=== PATIENT | female | born 1955 | race Two or more races ===

== ENCOUNTER 2021-10-28 01:04 | Inpatient (IN) | payer MEDICAID, OTHER ==
[~2021-10-28] VITALS: Ht 160 cm; Wt 85.0 kg
[2021-10-28] MEDS ORDERED: ACETAMINOPHEN ES 500 MG TABLET PO ONE (02:00)
[2021-10-28] MEDS ORDERED: ACETAMINOPHEN ES 500 MG TABLET ONE (02:13)
[2021-10-28 02:46] LABS: BASOPHILS # (AUTO) 0.1 K/uL (0.0-0.2); BASOPHILS % (AUTO) 0.8 % (0.0-2.0); EOSINOPHILS % (AUTO) 6.6 % (0.0-6.0); HEMATOCRIT 25 % (33-45); HEMOGLOBIN 8.3 g/dL (11.5-14.8); LYMPHOCYTES # (AUTO) 1.4 K/uL (0.8-4.8); MEAN CORPUSCULAR HGB CONC 33 g/dl (31.0-36.0); MEAN CORPUSCULAR VOLUME 98 fL (82-100); MONOCYTES # (AUTO) 0.7 K/uL (0.1-1.30); MONOCYTES % (AUTO) 9.1 % (2.0-12.0); NEUTROPHILS % (AUTO) 65.5 % (43.0-81.0); PLATELET COUNT (AUTO) 63 K/uL (150-450); RED BLOOD CELL COUNT(AUTO) 2.54 MIL/uL (4.0-5.2); WHITE BLOOD COUNT (AUTO) 7.7 K/uL (4.3-11.0)
[2021-10-28 03:04] LABS: ALANINE AMINOTRANSFERASE 27 U/L (12-78); ALBUMIN 2.5 g/dL (3.4-5.0); ALCOHOL, BLOOD < 3 mg/dL (0-0); ALKALINE PHOSPHATASE 217 U/L (46-116); ASPARTATE AMINOTRANSFERASE 53 U/L (15-37); BILIRUBIN,DIRECT 0.4 mg/dL (0.0-0.2); CALCIUM, SERUM 9.2 mg/dL (8.5-10.1); CARBON DIOXIDE 23 mmol/L (21-32); CHLORIDE 97 mmol/L (98-107); CREATININE 5.2 mg/dL (0.6-1.3); GLUCOSE 131 mg/dL (74-106); SODIUM SERUM 135 mmol/L (136-145); TOTAL PROTEIN, SERUM 7.3 g/dL (6.4-8.2); UREA NITROGEN, BLOOD 58 mg/dL (7-18)
[2021-10-28] MEDS ORDERED: CEFEPIME 1 GM in IV D5W 50 ML IV ONE (03:30)
[2021-10-28] MEDS ORDERED: VANCOMYCIN 1 GM in IV D5W 250 ML IV ONE (03:30)
[2021-10-28] MEDS ORDERED: VANCOMYCIN 1 GM VIAL ONE (03:44)
[2021-10-28 04:07] LABS: BILIRUBIN,URINE SMALL (NEGATIVE); COLOR,URINE YELLOW (YELLOW); LEUKOCYTE ESTERASE ,URINE TRACE (NEGATIVE); NITRITE, URINE NEGATIVE (NEGATIVE); PH,URINE 5.5 (5.0-8.0); PROTEIN,URINE >=300 mg/dl (NEGATIVE); UGLUCOSE 100 MG/DL mg/dL (NEGATIVE); UROBILINOGEN,URINE 0.2 EU/dL (0.2)
[2021-10-28] MEDS ORDERED: CEFEPIME 1 GM VIAL ONE (04:07)
[2021-10-28 04:19] LABS: ALBUMIN 2.4 g/dL (3.4-5.0); BILIRUBIN,DIRECT 0.4 mg/dL (0.0-0.2); BILIRUBIN,TOTAL 0.9 mg/dL (0.2-1.0); TOTAL PROTEIN, SERUM 7.1 g/dL (6.4-8.2)
[2021-10-28 04:23] LABS: RBC,URINE 21-50 /HPF (0-2)
[2021-10-28 04:24] LABS: BACTERIA,URINE Many /HPF (None Seen); SQUAMOUS EPITHELIAL CELL,UR Few /HPF (None Seen)
[2021-10-28] MEDS ORDERED: MAG HYDROX/AL HYDROX/SIMETH 30 ML UDC PO PRN (05:00)
[2021-10-28] MEDS ORDERED: ZOLPIDEM TARTRATE 5 MG TABLET PO PRN (05:00)
[2021-10-28] MEDS ORDERED: ACETAMINOPHEN 325 MG TABLET PO PRN (05:00)
[2021-10-28] MEDS ORDERED: Z GUARD REMEDY 4 OZ OINT TP PRN (05:00)
[2021-10-28] MEDS ORDERED: MAGNESIUM HYDROXIDE 30 ML UDC PO PRN (05:00)
[2021-10-28] MEDS: CEFTRIAXONE 1 G in IV D5W 50 ML IV SCH (08:12)
[2021-10-28] MEDS ORDERED: ONDANSETRON HCL/PF 4 MG/2 ML VIAL ONE (08:55)
[2021-10-28] MEDS: ONDANSETRON HCL/PF 4 MG/2 ML VIAL IVP PRN ×2 (09:02→16:41)
[2021-10-28] MEDS ORDERED: RIFA550T PO (09:57)
[2021-10-28] MEDS ORDERED: ASPI-1169 PO (09:57)
[2021-10-28] MEDS ORDERED: METO25TA20 PO (09:57)
[2021-10-28] MEDS ORDERED: BETH50TA2 PO (09:57)
[2021-10-28] MEDS ORDERED: LACT10SO3 PO (09:57)
[2021-10-28] MEDS ORDERED: MIDO10TA PO (09:57)
[2021-10-28] MEDS ORDERED: METF-442 PO (09:57)
[2021-10-28] MEDS ORDERED: ATOR10TA PO (09:57)
[2021-10-28] MEDS ORDERED: TRAM50TA2 PO (09:57)
[2021-10-28] MEDS ORDERED: PANT40TA49 PO (09:57)
[2021-10-28] MEDS ORDERED: PROP20TA19 PO (09:57)
[2021-10-28] MEDS ORDERED: LEVO100T9 PO (09:57)
[2021-10-28] MEDS ORDERED: SUCR1ORA15 PO (09:57)
[2021-10-28] MEDS ORDERED: INSU100V36 SQ (10:01)
[2021-10-28] MEDS ORDERED: INSU100V7 SQ (10:01)
[2021-10-28] MEDS ORDERED: LACTULOSE 10 G/15 ML UDC (PYXIS) PO PRN ×2 (10:30)
[2021-10-28] MEDS ORDERED: DEXTROSE 50%-WATER 50 ML DISP.SYRIN IV PRN (11:00)
[2021-10-28] MEDS: TRAMADOL HCL 50 MG TABLET PO PRN (11:29)
[2021-10-28 12:00] VITALS: BP 156/69
[2021-10-28] MEDS: BLOOD SUGAR DIAGNOSTIC 1 EACH STRIP VI SCH ×3 (12:13→21:27)
[2021-10-28] MEDS: INSULIN REGULAR, HUMAN 100 UNIT/ML 3 ML VIAL SQ PRN ×2 (12:19→21:26)
[2021-10-28] MEDS: BETHANECHOL CHLORIDE (25 MG) 25 MG TABLET PO SCH ×2 (13:39→17:35)
[2021-10-28] MEDS: SUCRALFATE 1 G/10 ML UDC PO SCH ×3 (13:39→20:46)
[2021-10-28 16:00] VITALS: BP 121/76
[2021-10-28] MEDS ORDERED: Medication Not On Formulary EA (Metformin Hcl 1,000 MG) PO SCH (17:00)
[2021-10-28] MEDS ORDERED: PROPRANOLOL HCL 20 MG PO SCH (17:00)
[2021-10-28] MEDS: RIFAXIMIN 550 MG TABLET PO SCH (17:34)
[2021-10-28] MEDS: METOPROLOL TARTRATE 25 MG TABLET PO SCH (17:35)
[2021-10-28 20:00] VITALS: BP 172/75
[2021-10-28] MEDS: hydrALAZINE HCL 10 MG TABLET PO PRN (20:46)
[2021-10-28] MEDS: INSULIN GLARGINE, 100 UNIT/ML CARTRIDGE SQ SCH (21:25)
[2021-10-28] MEDS: MIDODRINE HCL (5MG) 5 MG TABLET PO SCH (22:00)
[2021-10-29] VITALS: BP 148/74
[2021-10-29] MEDS: TRAMADOL HCL 50 MG TABLET PO PRN (02:23)
[2021-10-29] MEDS: ONDANSETRON HCL/PF 4 MG/2 ML VIAL IVP PRN ×2 (02:55→16:21)
[2021-10-29 04:00] VITALS: BP 139/66
[2021-10-29 06:06] LABS: BASOPHILS # (AUTO) 0.1 K/uL (0.0-0.2); BASOPHILS % (AUTO) 0.9 % (0.0-2.0); EOSINOPHILS % (AUTO) 5.8 % (0.0-6.0); HEMATOCRIT 26 % (33-45); HEMOGLOBIN 8.8 g/dL (11.5-14.8); LYMPHOCYTES # (AUTO) 0.9 K/uL (0.8-4.8); LYMPHOCYTES % (AUTO) 13.2 % (20.0-44.0); MEAN CORPUSCULAR HGB CONC 33 g/dl (31.0-36.0); MEAN CORPUSCULAR VOLUME 96 fL (82-100); MONOCYTES # (AUTO) 0.7 K/uL (0.1-1.30); NEUTROPHILS # (AUTO) 4.7 K/uL (1.8-8.9); NEUTROPHILS % (AUTO) 70.1 % (43.0-81.0); PLATELET COUNT (AUTO) 67 K/uL (150-450); RED BLOOD CELL COUNT(AUTO) 2.74 MIL/uL (4.0-5.2); WHITE BLOOD COUNT (AUTO) 6.7 K/uL (4.3-11.0)
[2021-10-29 06:20] LABS: CALCIUM, SERUM 8.6 mg/dL (8.5-10.1); CREATININE 5.2 mg/dL (0.6-1.3); MAGNESIUM 2.5 mg/dL (1.8-2.4); PHOSPHORUS 5.2 mg/dL (2.5-4.9); POTASSIUM 5.3 mmol/L (3.5-5.1)
[2021-10-29] MEDS: CEFTRIAXONE 1 G in IV D5W 50 ML IV SCH (07:53)
[2021-10-29] MEDS: PANTOPRAZOLE 40 MG TABLET.DR PO SCH (07:53)
[2021-10-29] MEDS: BLOOD SUGAR DIAGNOSTIC 1 EACH STRIP VI SCH ×4 (07:53→21:37)
[2021-10-29] MEDS: LEVOTHYROXINE SODIUM 100 MCG TABLET PO SCH (07:53)
[2021-10-29 08:00] VITALS: BP 155/71
[2021-10-29] MEDS ORDERED: IV NS 0.9% 250 ML IV PRN (08:30)
[2021-10-29] MEDS: RIFAXIMIN 550 MG TABLET PO SCH ×2 (08:41→16:55)
[2021-10-29] MEDS: SUCRALFATE 1 G/10 ML UDC PO SCH ×4 (08:41→21:24)
[2021-10-29] MEDS: ATORVASTATIN 10 MG TABLET PO SCH (08:41)
[2021-10-29] MEDS: BETHANECHOL CHLORIDE (25 MG) 25 MG TABLET PO SCH ×3 (08:42→16:56)
[2021-10-29] MEDS ORDERED: ASPIRIN 81 MG TAB.CHEW PO SCH (09:00)
[2021-10-29 12:00] VITALS: BP 160/80
[2021-10-29] MEDS: INSULIN REGULAR, HUMAN 100 UNIT/ML 3 ML VIAL SQ PRN ×2 (12:03→16:53)
[2021-10-29 16:00] VITALS: BP 158/87
[2021-10-29] MEDS: METOPROLOL TARTRATE 25 MG TABLET PO SCH (17:00)
[2021-10-29 20:00] VITALS: BP 158/71
[2021-10-29] MEDS: MIDODRINE HCL (5MG) 5 MG TABLET PO SCH (21:24)
[2021-10-29] MEDS: *INSULIN REGULAR(HUMULIN R)HUM 100 UNIT/ML VIAL SQ PRN (21:38)
[2021-10-29] MEDS: INSULIN GLARGINE, 100 UNIT/ML CARTRIDGE SQ SCH (21:41)
[2021-10-30] VITALS: BP 177/65
[2021-10-30] MEDS: hydrALAZINE HCL 10 MG TABLET PO PRN ×2 (00:12→17:57)
[2021-10-30 04:00] VITALS: BP 138/72
[2021-10-30 07:06] LABS: BASOPHILS % (AUTO) 0.6 % (0.0-2.0); EOSINOPHILS % (AUTO) 8.1 % (0.0-6.0); HEMATOCRIT 25 % (33-45); HEMOGLOBIN 8.2 g/dL (11.5-14.8); LYMPHOCYTES # (AUTO) 0.9 K/uL (0.8-4.8); LYMPHOCYTES % (AUTO) 14.1 % (20.0-44.0); MEAN CORPUSCULAR HGB CONC 34 g/dl (31.0-36.0); MEAN CORPUSCULAR VOLUME 95 fL (82-100); MONOCYTES # (AUTO) 0.6 K/uL (0.1-1.30); MONOCYTES % (AUTO) 9.1 % (2.0-12.0); NEUTROPHILS # (AUTO) 4.3 K/uL (1.8-8.9); NEUTROPHILS % (AUTO) 68.1 % (43.0-81.0); PLATELET COUNT (AUTO) 84 K/uL (150-450); RED BLOOD CELL COUNT(AUTO) 2.57 MIL/uL (4.0-5.2); WHITE BLOOD COUNT (AUTO) 6.3 K/uL (4.3-11.0)
[2021-10-30 07:26] LABS: CALCIUM, SERUM 8.2 mg/dL (8.5-10.1); CREATININE 3.8 mg/dL (0.6-1.3); MAGNESIUM 2.1 mg/dL (1.8-2.4); PHOSPHORUS 4.4 mg/dL (2.5-4.9); POTASSIUM 4.4 mmol/L (3.5-5.1)
[2021-10-30 08:00] VITALS: BP 167/80
[2021-10-30] MEDS: CEFTRIAXONE 1 G in IV D5W 50 ML IV SCH (08:04)
[2021-10-30] MEDS: PANTOPRAZOLE 40 MG TABLET.DR PO SCH (08:05)
[2021-10-30] MEDS: LEVOTHYROXINE SODIUM 100 MCG TABLET PO SCH (08:05)
[2021-10-30] MEDS: METOPROLOL TARTRATE 25 MG TABLET PO SCH ×2 (08:05→16:32)
[2021-10-30] MEDS: ATORVASTATIN 10 MG TABLET PO SCH (08:05)
[2021-10-30] MEDS: RIFAXIMIN 550 MG TABLET PO SCH ×2 (08:05→16:31)
[2021-10-30] MEDS: SERTRALINE HCL 50 MG TABLET PO SCH (08:05)
[2021-10-30] MEDS: SUCRALFATE 1 G/10 ML UDC PO SCH ×4 (08:05→21:17)
[2021-10-30] MEDS: BETHANECHOL CHLORIDE (25 MG) 25 MG TABLET PO SCH ×3 (08:05→16:31)
[2021-10-30] MEDS: BLOOD SUGAR DIAGNOSTIC 1 EACH STRIP VI SCH ×4 (08:21→21:26)
[2021-10-30 09:41] LABS: BAND % (MANUAL) 1 % (0.0-5.0); EOSINOPHILS % (MANUAL) 3 % (0-4); LYMPHOCYTES % (MANUAL) 20 % (16-48); MONOCYTES % (MANUAL) 3 % (0-11.0); NEUTROPHILS % (MANUAL) 73 (42-76)
[2021-10-30] MEDS: FLUCONAZOLE IN NS 100 MG in PREMIX 1 EA IV SCH ×2 (11:18)
[2021-10-30] MEDS: INSULIN REGULAR, HUMAN 100 UNIT/ML 3 ML VIAL SQ PRN ×2 (11:44→16:48)
[2021-10-30 12:00] VITALS: BP 146/78
[2021-10-30 16:00] VITALS: BP 173/83
[2021-10-30] MEDS: NEPRO VAN 237 ML CAN PO SCH (16:49)
[2021-10-30 20:00] VITALS: BP 160/71
[2021-10-30] MEDS: *INSULIN REGULAR(HUMULIN R)HUM 100 UNIT/ML VIAL SQ PRN (21:33)
[2021-10-30] MEDS: INSULIN GLARGINE, 100 UNIT/ML CARTRIDGE SQ SCH (21:36)
[2021-10-30] MEDS: MIDODRINE HCL (5MG) 5 MG TABLET PO SCH (22:00)
[2021-10-31] VITALS: BP 169/82
[2021-10-31] MEDS: hydrALAZINE HCL 10 MG TABLET PO PRN (01:46)
[2021-10-31 04:00] VITALS: BP 128/77
[2021-10-31 07:22] LABS: BASOPHILS # (AUTO) 0.1 K/uL (0.0-0.2); BASOPHILS % (AUTO) 1.1 % (0.0-2.0); EOSINOPHILS % (AUTO) 8.3 % (0.0-6.0); HEMATOCRIT 24 % (33-45); HEMOGLOBIN 8.3 g/dL (11.5-14.8); LYMPHOCYTES # (AUTO) 1.2 K/uL (0.8-4.8); MEAN CORPUSCULAR HGB CONC 34 g/dl (31.0-36.0); MEAN CORPUSCULAR VOLUME 95 fL (82-100); MONOCYTES # (AUTO) 0.7 K/uL (0.1-1.30); MONOCYTES % (AUTO) 10.5 % (2.0-12.0); NEUTROPHILS # (AUTO) 3.9 K/uL (1.8-8.9); NEUTROPHILS % (AUTO) 61.1 % (43.0-81.0); PLATELET COUNT (AUTO) 97 K/uL (150-450); RED BLOOD CELL COUNT(AUTO) 2.55 MIL/uL (4.0-5.2); WHITE BLOOD COUNT (AUTO) 6.5 K/uL (4.3-11.0)
[2021-10-31 07:26] LABS: CALCIUM, SERUM 8.4 mg/dL (8.5-10.1); CREATININE 4.2 mg/dL (0.6-1.3); MAGNESIUM 2.1 mg/dL (1.8-2.4); PHOSPHORUS 5.2 mg/dL (2.5-4.9); POTASSIUM 4.3 mmol/L (3.5-5.1)
[2021-10-31 08:00] VITALS: BP 168/72
[2021-10-31] MEDS: RIFAXIMIN 550 MG TABLET PO SCH (08:15)
[2021-10-31] MEDS: PANTOPRAZOLE 40 MG TABLET.DR PO SCH (08:15)
[2021-10-31] MEDS: SUCRALFATE 1 G/10 ML UDC PO SCH ×2 (08:15→12:28)
[2021-10-31] MEDS: BETHANECHOL CHLORIDE (25 MG) 25 MG TABLET PO SCH ×2 (08:15→12:28)
[2021-10-31] MEDS: METOPROLOL TARTRATE 25 MG TABLET PO SCH (08:15)
[2021-10-31] MEDS: ATORVASTATIN 10 MG TABLET PO SCH (08:15)
[2021-10-31] MEDS: SERTRALINE HCL 50 MG TABLET PO SCH (08:15)
[2021-10-31] MEDS: LEVOTHYROXINE SODIUM 100 MCG TABLET PO SCH (08:15)
[2021-10-31] MEDS: CEFTRIAXONE 1 G in IV D5W 50 ML IV SCH (08:19)
[2021-10-31] MEDS: BLOOD SUGAR DIAGNOSTIC 1 EACH STRIP VI SCH ×2 (08:38→12:27)
[2021-10-31] MEDS: NEPRO VAN 237 ML CAN PO SCH (08:38)
[2021-10-31] MEDS ORDERED: FLUC100T8 PO (10:37)
[2021-10-31] MEDS: FLUCONAZOLE IN NS 100 MG in PREMIX 1 EA IV SCH ×2 (11:41)
[2021-10-31 12:00] VITALS: BP 130/62
== END 2021-10-31 13:35 | disposition home or self-care (01) | DRG 720 ==
LOC: ER 01:06 → TRANSITION 07:09 → TELE1 08:28
PROVIDERS: ADMIT Internal Medicine; ATTEND Nurse Practitioner Acute Care
PROC: 5A1D70Z Performance of Urinary Filtration, Intermittent, Less than 6 Hours Per Day (ICD-10-PCS; principal; 2021-10-29)
PROC: 05HB33Z Insertion of Infusion Device into Right Basilic Vein, Percutaneous Approach (ICD-10-PCS; 2021-10-29)
DX: A41.9 Sepsis, unspecified organism (principal); G93.41 Metabolic encephalopathy; E87.2 Acidosis; E43 Unspecified severe protein-calorie malnutrition; D69.6 Thrombocytopenia, unspecified; I12.0 Hypertensive chronic kidney disease with stage 5 chronic kidney disease or end stage renal disease; E87.1 Hypo-osmolality and hyponatremia; J90 Pleural effusion, not elsewhere classified; E88.09 Other disorders of plasma-protein metabolism, not elsewhere classified; G90.8 Other disorders of autonomic nervous system; N18.6 End stage renal disease; E11.22 Type 2 diabetes mellitus with diabetic chronic kidney disease; K74.60 Unspecified cirrhosis of liver; Z99.2 Dependence on renal dialysis; Z20.822 Contact with and (suspected) exposure to COVID-19; E78.5 Hyperlipidemia, unspecified; Z88.0 Allergy status to penicillin; Z79.4 Long term (current) use of insulin; Z79.82 Long term (current) use of aspirin; Z79.84 Long term (current) use of oral hypoglycemic drugs; Z79.899 Other long term (current) drug therapy; Z86.61 Personal history of infections of the central nervous system; Z98.890 Other specified postprocedural states; Y92.9 Unspecified place or not applicable; G89.4 Chronic pain syndrome; K21.9 Gastro-esophageal reflux disease without esophagitis; E03.9 Hypothyroidism, unspecified; F32.A Depression, unspecified; M47.812 Spondylosis without myelopathy or radiculopathy, cervical region; W18.30XA Fall on same level, unspecified, initial encounter; B37.49 Other urogenital candidiasis
CPT/HCPCS: 36415; 70450-TC; 71045-TC; 72125-TC; 72170-TC; 74018; 80048-TC; 80074; 80076-TC; 81001; 82962-TC; 83605-TC; 83735-TC; 83880; 84100-TC; 84484-TC; 85025-TC; 85730-TC; 86706; 87040-TC; 87081-TC; 87086-TC; 87340; 93971-TC; 97112-TC; 97530-TC; A4216; A6403; C9803; G0378; G0480; J0692; J0696; J1450; J1815; J2405; J3370; J7030; J7060

== ENCOUNTER 2021-11-18 15:52 | Emergency (ER) | payer MEDICAID, MEDICARE, OTHER ==
[~2021-11-18] VITALS: Ht 165.1 cm; Wt 81.2 kg
[~2021-11-18 15:52] MED LIST: ASPI-1169 PO; ATOR10TA PO; BETH50TA2 PO; FLUC100T8 PO; INSU100V36 SQ; INSU100V7 SQ; LACT10SO3 PO; LEVO100T9 PO; METF-442 PO; METO25TA20 PO; MIDO10TA PO; PANT40TA49 PO; PROP20TA19 PO; RIFA550T PO; SUCR1ORA15 PO; TRAM50TA2 PO
--- NOTE | 2021-11-18 16:04 | NUR ---
TO ER BED 2. BIB RA 889 FROM HOME,GENERALIZED WEAKNESS/NAUSEA/VOMITING SINCE LAST NIGHT. PT IS A&OX2. HAS DIALYSIS PORT ON R CHEST. ATTCHED TO MONITOR, NO RESPIRATORY DISTRESS NOTED. IV ESTBALIHSED L AC 20G, LABS DRAWN AND SENT.
[2021-11-18 16:33] LABS: BASOPHILS # (AUTO) 0.1 K/uL (0.0-0.2); BASOPHILS % (AUTO) 1.2 % (0.0-2.0); EOSINOPHILS % (AUTO) 7.5 % (0.0-6.0); HEMATOCRIT 26 % (33-45); HEMOGLOBIN 8.9 g/dL (11.5-14.8); LYMPHOCYTES % (AUTO) 17.7 % (20.0-44.0); MEAN CORPUSCULAR HGB CONC 34 g/dl (31.0-36.0); MEAN CORPUSCULAR VOLUME 97 fL (82-100); MONOCYTES # (AUTO) 0.5 K/uL (0.1-1.30); MONOCYTES % (AUTO) 8.6 % (2.0-12.0); NEUTROPHILS # (AUTO) 3.5 K/uL (1.8-8.9); PLATELET COUNT (AUTO) 112 K/uL (150-450); RED BLOOD CELL COUNT(AUTO) 2.71 MIL/uL (4.0-5.2); WHITE BLOOD COUNT (AUTO) 5.4 K/uL (4.3-11.0)
[2021-11-18 16:44] LABS: CALCIUM, SERUM 9.5 mg/dL (8.5-10.1); CARBON DIOXIDE 25 mmol/L (21-32); CHLORIDE 99 mmol/L (98-107); CREATININE 5.1 mg/dL (0.6-1.3); GLUCOSE 118 mg/dL (74-106); POTASSIUM 4.7 mmol/L (3.5-5.1); SODIUM SERUM 135 mmol/L (136-145); UREA NITROGEN, BLOOD 33 mg/dL (7-18)
[2021-11-18 16:49] LABS: ALANINE AMINOTRANSFERASE 36 U/L (12-78); ALBUMIN 2.7 g/dL (3.4-5.0); ALKALINE PHOSPHATASE 281 U/L (46-116); ASPARTATE AMINOTRANSFERASE 53 U/L (15-37); BILIRUBIN,DIRECT 0.4 mg/dL (0.0-0.2); LIPASE 80 U/L (73-393); TOTAL PROTEIN, SERUM 7.8 g/dL (6.4-8.2)
[2021-11-18 17:09] LABS: MAGNESIUM 2.5 mg/dL (1.8-2.4)
--- NOTE | 2021-11-18 17:09 | NUR ---
PT TAKEN TO CT VIA IZAIAH
[2021-11-18 17:11] LABS: THYROID STIMULATING HORMONE 14.1 uIU/mL (0.358-3.74)
--- NOTE | 2021-11-18 17:21 | NUR ---
PT RETURNED FROM CT VIA [facility]
[2021-11-18] MEDS ORDERED: MIDO10TA PO (17:52)
[2021-11-18 18:23] LABS: BILIRUBIN,URINE SMALL (NEGATIVE); COLOR,URINE YELLOW (YELLOW); LEUKOCYTE ESTERASE ,URINE NEGATIVE (NEGATIVE); NITRITE, URINE NEGATIVE (NEGATIVE); PROTEIN,URINE >=300 mg/dl (NEGATIVE); UGLUCOSE 250 MG/DL mg/dL (NEGATIVE); UROBILINOGEN,URINE 0.2 EU/dL (0.2)
[2021-11-18 18:48] LABS: BACTERIA,URINE RARE /HPF (None Seen); WBC,URINE 0-2 /HPF (0-3)
[2021-11-18] MEDS ORDERED: ONDA4TAB11 PO (19:24)
[2021-11-18] MEDS ORDERED: ONDANSETRON HCL/PF - ER 4 MG/2 ML VIAL IV ONE (19:30)
[2021-11-18] MEDS ORDERED: MORPHINE SULFATE INJ 2 MG/ML DISP.SYRIN IV ONE (19:30)
--- NOTE | 2021-11-18 19:42 | NUR ---
Patient discharged to home in stable condition. Written and verbal after care instructions given. Patient verbalizes understanding of instruction. IV removed. Catheter intact and site benign. Pressure and 4x4 applied to site. No bleeding noted.
[2021-11-18 19:43] VITALS: BP 145/88
--- NOTE | 2021-11-18 19:45 | NUR ---
[facility] ETA 75-90 MIN
--- NOTE | 2021-11-18 22:19 | NUR ---
[facility] AT BEDSIDE FOR PATIENT TRANSPORT.
[2021-11-24] MEDS ORDERED: LACT10SO58 PO (11:07)
== END 2021-11-18 22:20 | disposition home or self-care (01) ==
LOC: ER 15:56
DX: R53.1 Weakness (principal); R11.2 Nausea with vomiting, unspecified; I13.11 Hypertensive heart and chronic kidney disease without heart failure, with stage 5 chronic kidney disease, or end stage renal disease; E11.22 Type 2 diabetes mellitus with diabetic chronic kidney disease; N18.6 End stage renal disease; Z88.0 Allergy status to penicillin; Z60.2 Problems related to living alone; Z79.899 Other long term (current) drug therapy
CPT/HCPCS: 36415; 70450; 71045; 74176; 80048; 80076; 81001; 83690; 83735; 83880; 84443; 84484; 85025; 99285; J2405

== ENCOUNTER 2021-11-20 15:18 | Inpatient (IN) | payer MEDICARE, OTHER ==
[~2021-11-20] VITALS: Ht 165.1 cm; Wt 84.4 kg
[~2021-11-20 15:18] MED LIST changes: -FLUC100T8 PO; +ONDA4TAB11 PO
[2021-11-20] MEDS ORDERED: IV NS 0.9% 1,000 ML BAG IV ONE (15:30)
--- NOTE | 2021-11-20 15:40 | NUR ---
RECEVED PT 63 YRS FEMALE CAME FROM HOME FOR GENRALIZED WEEKNEESS AND EDEMA ON HEODIALYSIS ON , THURSDAY AND SATURDAYS FROM [facility] CONTACT NUMBER [employer] [employer]AR[facility]EL [phone]
--- NOTE | 2021-11-20 16:30 | NUR ---
PT HEARD STICK INSERTED ANGO CATH # 22 ON RT WREST PATENT WILL PT PERMCATHER ON RT SUBCLEAVIAN PATENT WILL
[2021-11-20 17:25] LABS: BASOPHILS # (AUTO) 0.1 K/uL (0.0-0.2); BASOPHILS % (AUTO) 1.2 % (0.0-2.0); EOSINOPHILS % (AUTO) 6.5 % (0.0-6.0); HEMATOCRIT 25 % (33-45); HEMOGLOBIN 8.4 g/dL (11.5-14.8); LYMPHOCYTES # (AUTO) 1.3 K/uL (0.8-4.8); LYMPHOCYTES % (AUTO) 22.9 % (20.0-44.0); MEAN CORPUSCULAR HGB CONC 33 g/dl (31.0-36.0); MEAN CORPUSCULAR VOLUME 99 fL (82-100); MONOCYTES # (AUTO) 0.6 K/uL (0.1-1.30); MONOCYTES % (AUTO) 9.8 % (2.0-12.0); NEUTROPHILS # (AUTO) 3.4 K/uL (1.8-8.9); NEUTROPHILS % (AUTO) 59.6 % (43.0-81.0); PLATELET COUNT (AUTO) 98 K/uL (150-450); RED BLOOD CELL COUNT(AUTO) 2.53 MIL/uL (4.0-5.2); WHITE BLOOD COUNT (AUTO) 5.7 K/uL (4.3-11.0)
[2021-11-20 17:49] LABS: EOSINOPHILS % (MANUAL) 5 % (0-4); LYMPHOCYTES % (MANUAL) 16 % (16-48); MONOCYTES % (MANUAL) 6 % (0-11.0); NEUTROPHILS % (MANUAL) 73 (42-76)
[2021-11-20 17:53] LABS: ALBUMIN 2.7 g/dL (3.4-5.0); BILIRUBIN,DIRECT 0.5 mg/dL (0.0-0.2); BILIRUBIN,TOTAL 1.1 mg/dL (0.2-1.0); CALCIUM, SERUM 8.9 mg/dL (8.5-10.1); CREATININE 5.1 mg/dL (0.6-1.3); POTASSIUM 4.8 mmol/L (3.5-5.1); SERUM AMMONIA 98 umol/L (11-32); TOTAL PROTEIN, SERUM 7.3 g/dL (6.4-8.2)
--- NOTE | 2021-11-20 18:00 | NUR ---
c/o nusea zofran 4mgivp given
[2021-11-20 18:05] LABS: THYROID STIMULATING HORMONE 13.206 uIU/mL (0.358-3.74)
[2021-11-20] MEDS ORDERED: ONDANSETRON HCL/PF 4 MG/2 ML VIAL IV ONE (18:30)
[2021-11-20] MEDS ORDERED: ONDANSETRON HCL/PF 4 MG/2 ML VIAL ONE (18:32)
--- NOTE | 2021-11-20 19:25 | NUR ---
HAND OFF TO DELMER MCCARTHY
--- NOTE | 2021-11-20 19:38 | NUR ---
sumit lopez sent to lab
--- NOTE | 2021-11-20 19:50 | NUR ---
URINE COLLECTED SENT TO LAB
[2021-11-20 20:49] LABS: BILIRUBIN,URINE NEGATIVE (NEGATIVE); COLOR,URINE YELLOW (YELLOW); LEUKOCYTE ESTERASE ,URINE NEGATIVE (NEGATIVE); NITRITE, URINE NEGATIVE (NEGATIVE); PH,URINE 6.5 (5.0-8.0); PROTEIN,URINE NEGATIVE (NEGATIVE); UGLUCOSE NEGATIVE (NEGATIVE); UROBILINOGEN,URINE 0.2 EU/dL (0.2)
--- NOTE | 2021-11-20 21:24 | NUR ---
BED 304-1
--- NOTE | 2021-11-20 21:40 | NUR ---
REPORT GIVEN TO SHARI COLINDRES
[2021-11-20] MEDS ORDERED: Z GUARD REMEDY 4 OZ OINT TP PRN (22:00)
[2021-11-20] MEDS ORDERED: ONDANSETRON HCL/PF 4 MG/2 ML VIAL IVP PRN (22:00)
[2021-11-20] MEDS ORDERED: DEXTROSE 50%-WATER 50 ML DISP.SYRIN IV PRN (22:00)
--- NOTE | 2021-11-20 22:05 | NUR ---
PT TRANSFERRED UNDER ACLS
--- NOTE | 2021-11-20 22:15 | NUR ---
RN NOTES. PT RECEIVED FROM ER TWO PERSONEL ASSETED WITH IZAIAH.PT STABLE.V/S TAKEN AND RECORDED.NO SIGN SOB/DISTRESS NOTED.ON RM AIR.IV ACCESS R ARM WRIST #22G.PATENT AND INTACT.NO COMPLAINED OF PAIN/DISCOMFORT AT THIS TIME.CALL LIGHT WITH REACH.SAFTY MEASURED INPLACE,LOW BED AND LUCKED.CONTINUE TO MONITOR.
[2021-11-20 22:30] VITALS: BP 182/89
[2021-11-20] MEDS ORDERED: CEFEPIME 1 GM in IV D5W 50 ML IV ONE (23:00)
[2021-11-20] MEDS: BLOOD SUGAR DIAGNOSTIC 1 EACH STRIP IN SCH (23:12)
[2021-11-20] MEDS ORDERED: VANCOMYCIN 1 GM in IV D5W 250ml IV ONE (23:30)
[2021-11-20] MEDS: LACTULOSE 10 G/15 ML UDC (PYXIS) PO SCH (23:30)
[2021-11-21] VITALS (7 sets, daily range): BP systolic 164–189; BP diastolic 79–89
[2021-11-21] MEDS ORDERED: VANCOMYCIN 1 GM VIAL ONE (00:05)
[2021-11-21] MEDS: INSULIN GLARGINE, 100 UNIT/ML CARTRIDGE SQ SCH ×2 (00:11→22:35)
[2021-11-21] MEDS ORDERED: CEFEPIME 1 GM VIAL ONE (00:13)
[2021-11-21] MEDS: ACETAMINOPHEN 325 MG TABLET PO PRN (02:36)
[2021-11-21 06:32] LABS: BASOPHILS % (AUTO) 0.3 % (0.0-2.0); EOSINOPHILS % (AUTO) 6.2 % (0.0-6.0); HEMATOCRIT 23 % (33-45); HEMOGLOBIN 7.5 g/dL (11.5-14.8); LYMPHOCYTES # (AUTO) 0.8 K/uL (0.8-4.8); LYMPHOCYTES % (AUTO) 21.8 % (20.0-44.0); MEAN CORPUSCULAR HGB CONC 33 g/dl (31.0-36.0); MEAN CORPUSCULAR VOLUME 97 fL (82-100); MONOCYTES # (AUTO) 0.3 K/uL (0.1-1.30); MONOCYTES % (AUTO) 9.7 % (2.0-12.0); NEUTROPHILS # (AUTO) 2.2 K/uL (1.8-8.9); RED BLOOD CELL COUNT(AUTO) 2.32 MIL/uL (4.0-5.2); WHITE BLOOD COUNT (AUTO) 3.6 K/uL (4.3-11.0)
--- NOTE | 2021-11-21 06:53 | NUR ---
RN CLOSING NOTES. PT IN BED SLEEPING BUT EASY TO AROUSED.ON RM AIR ALISA WELL .NO SIGN SOB/DISTRESS NOTED.ALBANIAN SPEAKING.IV ACCESS R ARM WRIST #22G.PATENT AND INTACT.NO COMPLAINED OF PAIN/DISCOMFORT AT THIS TIME.CALL LIGHT WITHIN REACH.SAFTY MEASURED INPLACE,LOW POSITION AND BED LUCKED.WILL ENDORSED TO NEXT SHIFT.
[2021-11-21 07:00] LABS: CALCIUM, SERUM 9.3 mg/dL (8.5-10.1); CREATININE 5.2 mg/dL (0.6-1.3); PHOSPHORUS 3.6 mg/dL (2.5-4.9); POTASSIUM 4.7 mmol/L (3.5-5.1)
[2021-11-21] MEDS ORDERED: VANCOMYCIN 500 MG in IV D5W 100 ML IV PRN (07:00)
[2021-11-21 07:14] LABS: MAGNESIUM 2.2 mg/dL (1.8-2.4)
--- NOTE | 2021-11-21 07:30 | NUR ---
MANAGER RESIDENTIAL OPENING NOTES: RECEIVED PATIENT IN BED AWAKE, ARMENIAN SPEAKING ALERT AND ORIENTED X 3, ABLE TO VERBALIZED NEEDS. NO SOB/NO CARDIAC DISTRESS NOTED, ON ROOM AIR AND TOLERATED WELL. NOTED WITH IV ACCESS ON RIGHT WRIST G#22 SALINE LOCKED. ATTACHED TO SLAB GRINDER WITH CURRENT READING OF SINUS RHYTHM 66 BPM.SAFETY PRECAUTIONARY MEASURES MAINTAINED: BED LOCKED AND IN LOWEST POSITION, SIDE RAILS UP X 3. CALL LIGHT WITHIN EASY REACH FOR HELP/ASSISTANCE.
[2021-11-21] MEDS: LACTULOSE 10 G/15 ML UDC (PYXIS) PO SCH ×3 (08:28→16:30)
[2021-11-21] MEDS: LEVOTHYROXINE SODIUM 125 MCG TABLET PO SCH (08:28)
[2021-11-21] MEDS: ATORVASTATIN 10 MG TABLET PO SCH (08:28)
[2021-11-21] MEDS: ZINC SULFATE 220 MG CAPSULE PO SCH (08:28)
[2021-11-21] MEDS: BLOOD SUGAR DIAGNOSTIC 1 EACH STRIP IN SCH ×4 (08:42→22:29)
[2021-11-21] MEDS: INSULIN REGULAR, HUMAN 100 UNIT/ML 3 ML VIAL SQ PRN ×4 (08:43→22:37)
[2021-11-21] MEDS: RIFAXIMIN 550 MG TABLET PO SCH ×2 (08:56→21:27)
[2021-11-21] MEDS: METOPROLOL TARTRATE 25 MG TABLET PO SCH ×3 (08:56→16:44)
[2021-11-21 11:05] LABS: PLATELET COUNT (AUTO) 73 K/uL (150-450)
--- NOTE | 2021-11-21 17:11 | NUR ---
RN NOTES: PATIENT NOTED 186/81, PULSE 62 GIVEN SHEDULED METOPROLOL 25MG/TAB PO, RECHECKED BP AFTER 30MINUTES AND WENT DOWN TO 142/74, PULSE 63.
--- NOTE | 2021-11-21 18:55 | NUR ---
MS RN CLOSING NOTES: PATIENT IN BED AWAKE, ALERT AND ORIENTED X 3 WITH EPISODES OF FORGETFULNESS, ABLE TO VERBALIZED NEEDS. NO SOB/NO CARDIAC DISTRESS NOTED, ON ROOM AIR AND TOLERATED WELL. NOTED WITH IV ACCESS ON RIGHT WRIST G#22 SALINE LOCKED. WITH PERMACATH ON RUC.SAFETY PRECAUTIONARY MEASURES MAINTAINED: BED LOCKED AND IN LOWEST POSITION, SIDE RAILS UP X 3. CALL LIGHT WITHIN EASY REACH FOR HELP/ASSISTANCE. WILL ENDORSED TO PLASTIC SURGERY TECHNICIAN NURSE FOR CONTINUITY OF CARE.
--- NOTE | 2021-11-21 19:15 | NUR ---
MS RN OPENING NOTES RECEIVED PATIENT IN BED; AWAKE, ALERT AND ORIENTED X3; CITIZEN OF [place] SPEAKING. ON ROOM AIR, TOLERATING WELL. NOT IN ANY FORM OF RESPIRATORY DISTRESS. DENIES ANY PAIN OR DISCOMFORT OF THIS TIME. WITH IV ACCESS ON RIGHT WRIST G#22; PATENT, INTACT AND SALINE LOCKED. ABLE TO MAKE NEEDS KNOWN. SAFETY MEASURES IMPLEMENTED: CALL BUTTON AND TABLE WITHIN EASY REACH, SIDE RAILS UP X2, BED IN LOWEST LOCKED POSITION. WILL CONTINUE TO MONITOR
[2021-11-21] MEDS: hydrALAZINE HCL IV 20 MG VIAL IV PRN (21:45)
--- NOTE | 2021-11-21 21:50 | NUR ---
MS RN NOTES BP: 184/79 MM HG. HYDRALAZINE IV 0.5 ML GIVEN PRN. WILL RECHECK BP AFTER 30 MINS.
[2021-11-21] MEDS: CEFEPIME 1 GM in IV D5W 50 ML IV SCH (22:40)
[2021-11-22] MEDS: ACETAMINOPHEN 325 MG TABLET PO PRN (00:54)
--- NOTE | 2021-11-22 01:35 | NUR ---
MS RN NOTES PATIENT NOTED WITH DIFFICULTY OF BREATHING AND WHEEZING; USES ABDOMINAL ACCESSORY MUSCLE WHEN BREATHING. BP: 244/115 MM HG, RR: 24, VA: 79, O2 Sat: 94%. DR RIVAS CHRISTIAN NOTIFIED AND MADE AWARE; WITH ORDERS MADE AND CARRIED OUT.
[2021-11-22] MEDS ORDERED: ALBUTEROL FS 2.5 MG/3 ML VIAL.NEB ONE (01:54)
[2021-11-22] MEDS ORDERED: methylPREDNISolone SOD SUCC 125 MG/2ML VIAL ONE (01:55)
[2021-11-22] MEDS ORDERED: IPRATROPIUM NEB FS 0.5 MG/2.5 ML AMPUL.NEB ONE (01:55)
[2021-11-22] MEDS ORDERED: methylPREDNISolone SOD SUCC 125 MG/2ML VIAL IV ONE (02:00)
[2021-11-22] MEDS ORDERED: ALBUTEROL FS 2.5 MG/3 ML VIAL.NEB NEB PRN ×2 (02:00)
[2021-11-22] MEDS ORDERED: IPRATROPIUM NEB FS 0.5 MG/2.5 ML AMPUL.NEB NEB PRN (02:00)
--- NOTE | 2021-11-22 02:20 | NUR ---
MS/REFINERY OPERATOR VAPOR RECOVERY UNIT NOTE IV ACCESS DISLODGED; REINSERTION DONE BY NURSE WARREN FROM ICU AT LEFT WRIST G#22; PATENT, INTACT AND FLUSHES WELL.
[2021-11-22] MEDS: hydrALAZINE HCL IV 20 MG VIAL IV PRN ×3 (02:44→16:39)
--- NOTE | 2021-11-22 02:50 | NUR ---
MS/BUILDING ENGINEER NOTE PATIENT NOTED WITH BP: 217/113 MM HG. HYDRALAZINE 0.5 ML GIVEN IV IN ORDERED AT 0244.
[2021-11-22] MEDS ORDERED: FUROSEMIDE 40 MG/4 ML VIAL IV ONE (03:00)
[2021-11-22 04:00] VITALS: BP 149/75
--- NOTE | 2021-11-22 04:10 | NUR ---
MS/INTERNAL INVESTIGATOR BP CHECKED: 149/75 MM HG
[2021-11-22] MEDS: BLOOD SUGAR DIAGNOSTIC 1 EACH STRIP IN SCH ×4 (06:12→21:44)
[2021-11-22] MEDS: INSULIN REGULAR, HUMAN 100 UNIT/ML 3 ML VIAL SQ PRN ×4 (06:17→22:08)
[2021-11-22 06:20] LABS: CALCIUM, SERUM 8.6 mg/dL (8.5-10.1); CREATININE 5.7 mg/dL (0.6-1.3); MAGNESIUM 2.4 mg/dL (1.8-2.4); PHOSPHORUS 4.6 mg/dL (2.5-4.9); POTASSIUM 5.6 mmol/L (3.5-5.1)
--- NOTE | 2021-11-22 06:50 | NUR ---
MS/MOLDING PRESS OPERATOR CLOSING NOTES PATIENT IN BED AWAKE, ALERT AND ORIENTED X3 ABLE TO VERBALIZE NEEDS. IN NO ACUTE DISTRESS NOTED. DENIES ANY PAIN OR DISCOMFORT OF THIS TIME. SAFETY MEASURES IN PLACE. ENDORSED TO NURSE ROSARIO AND NURSE THOMSON FOR CONTINUITY OF CARE.
--- NOTE | 2021-11-22 07:30 | NUR ---
MS RN OPENING NOTES: RECEIVED PATIENT IN BED AWAKE, ROMANSH SPEAKING ALERT AND ORIENTED X 3, ABLE TO VERBALIZED NEEDS. NO COMPLAINT OF SOB BREATHING NORMAL AND UNLABORED AT THIS TIME, ON O2 INHALATION @ 2 LPM VIA NC TOLERATED WELL. NOTED WITH IV ACCESS ON LEFT WRIST G#22 SALINE LOCKED.SAFETY PRECAUTIONARY MEASURES MAINTAINED: BED LOCKED AND IN LOWEST POSITION, SIDE RAILS UP X 3. CALL LIGHT WITHIN EASY REACH FOR HELP/ASSISTANCE.
[2021-11-22] MEDS: LEVOTHYROXINE SODIUM 125 MCG TABLET PO SCH (07:31)
[2021-11-22 08:00] VITALS: BP 179/91
[2021-11-22] MEDS: RIFAXIMIN 550 MG TABLET PO SCH ×2 (08:03→20:55)
[2021-11-22] MEDS: ZINC SULFATE 220 MG CAPSULE PO SCH (08:03)
[2021-11-22] MEDS: LACTULOSE 10 G/15 ML UDC (PYXIS) PO SCH ×3 (08:03→16:53)
[2021-11-22] MEDS: ATORVASTATIN 10 MG TABLET PO SCH (08:03)
[2021-11-22] MEDS: METOPROLOL TARTRATE 25 MG TABLET PO SCH ×3 (08:07→16:38)
--- NOTE | 2021-11-22 08:56 | NUR ---
WOUND CARE CONSULT; PT PRESENTS WITH DISCOLORATION TO UPPER EXTREMITIES, PRESENT ON ADMISSION. PT IS INCONTINENT. RECOMMENDATIONS MADE FOR SKIN PROTECTION. DISCUSSED WITH NURSING STAFF. MD IN AGREEMENT WITH PLAN OF CARE.
[2021-11-22 09:05] LABS: BASOPHILS % (AUTO) 0.2 % (0.0-2.0); EOSINOPHILS % (AUTO) 0.2 % (0.0-6.0); HEMATOCRIT 24 % (33-45); LYMPHOCYTES # (AUTO) 0.5 K/uL (0.8-4.8); LYMPHOCYTES % (AUTO) 10.9 % (20.0-44.0); MEAN CORPUSCULAR HGB CONC 33 g/dl (31.0-36.0); MEAN CORPUSCULAR VOLUME 98 fL (82-100); MONOCYTES # (AUTO) 0.1 K/uL (0.1-1.30); MONOCYTES % (AUTO) 2.3 % (2.0-12.0); NEUTROPHILS # (AUTO) 4.1 K/uL (1.8-8.9); NEUTROPHILS % (AUTO) 86.4 % (43.0-81.0); PLATELET COUNT (AUTO) 82 K/uL (150-450); RED BLOOD CELL COUNT(AUTO) 2.47 MIL/uL (4.0-5.2); WHITE BLOOD COUNT (AUTO) 4.7 K/uL (4.3-11.0)
--- NOTE | 2021-11-22 10:47 | NUR ---
RN NOTES Shu MARROQUIN WITH ORDER TO DO HEMODIALYSIS ON PT TODAY. HD CONSENT OBTAINED FROM PT'S [id number] @ [facility] [phone] AND CONFIRM BY ANOTHER RN (MARLENE)
--- NOTE | 2021-11-22 13:00 | NUR ---
RN NOTES: S/P JAMES MIDLINE INSERTION, PATENT AND INTACT, SALINE LOCKED. PATIENT TOLERATED WELL.
--- NOTE | 2021-11-22 13:20 | NUR ---
RN NOTES PT ON ONGOING HD VIA RCW PERMA CATHETER.
--- NOTE | 2021-11-22 15:12 | NUR ---
RN NOTES: PATIENT COMPLETED HEMODIALYSIS AND TOLERATED THE PROCEDURE WITH 3000ML OUTPUT. POST HD VS BP 185/83, HR 17, HR 60, TEMP 97.8F. RIGHT UPPER CHEST PERMACATH INTACT WITH NO BLEEDING NOTED.
[2021-11-22 16:00] VITALS: BP 184/80
--- NOTE | 2021-11-22 18:30 | NUR ---
MS RN CLOSING NOTES: PATIENT IN BED AWAKE, OCCITAN SPEAKING ALERT AND ORIENTED X 3, ABLE TO VERBALIZED NEEDS. NO COMPLAINT OF SOB BREATHING NORMAL AND UNLABORED AT THIS TIME, ON O2 INHALATION @ 2 LPM VIA NC TOLERATED WELL. NOTED WITH IV ACCESS ON JAMES MIDLINE G#22 SALINE LOCKED.SAFETY PRECAUTIONARY MEASURES MAINTAINED: BED LOCKED AND IN LOWEST POSITION, SIDE RAILS UP X 3. CALL LIGHT WITHIN EASY REACH FOR HELP/ASSISTANCE. WILL ENDORSE TO DESK MAKER NURSE FOR CONTINUITY OF CARE.
--- NOTE | 2021-11-22 19:10 | NUR ---
MS RN OPENING NOTES RECEIVED PATIENT IN BED; AWAKE, ALERT AND ORIENTED X3; TANZANIAN SPEAKING. WITH OXYGEN INHALATION @ 2LPM VIA NASAL CANNULA; TOLERATING WELL. NOT IN ANY FORM OF RESPIRATORY DISTRESS. DENIES ANY PAIN OR DISCOMFORT OF THIS TIME. WITH IV ACCESS ON RIGHT WRIST G#22; PATENT, INTACT AND SALINE LOCKED. WITH MIDLINE @ RIGHT UPPER ARM G#18; INTACT, PATENT AND FLUSHES WELL. ABLE TO MAKE NEEDS KNOWN. SAFETY MEASURES IMPLEMENTED: CALL BUTTON AND TABLE WITHIN EASY REACH, HEAD OF BED ELEVATED AT 30 DEGREES, SIDE RAILS UP X2, BED IN LOWEST LOCKED POSITION. WILL CONTINUE PLAN OF CARE
[2021-11-22 19:51] VITALS: BP 154/79
[2021-11-22 20:00] VITALS: BP 154/79
--- NOTE | 2021-11-22 21:50 | NUR ---
MS RN NOTES BLOOD SUGAR CHECKED AND RECORDED WITH RESULT OF 256 MG/DL; 6U OF INSULIN PER SLIDING SCALE GIVEN SQ ORDERED.
[2021-11-22] MEDS: INSULIN GLARGINE, 100 UNIT/ML CARTRIDGE SQ SCH (22:12)
[2021-11-22] MEDS: CEFEPIME 1 GM in IV D5W 50 ML IV SCH (22:19)
[2021-11-23] MEDS: BLOOD SUGAR DIAGNOSTIC 1 EACH STRIP IN SCH ×4 (06:13→21:49)
[2021-11-23 06:22] LABS: CALCIUM, SERUM 8.6 mg/dL (8.5-10.1); CREATININE 4.2 mg/dL (0.6-1.3); MAGNESIUM 2.2 mg/dL (1.8-2.4); POTASSIUM 4.5 mmol/L (3.5-5.1)
[2021-11-23] MEDS: INSULIN REGULAR, HUMAN 100 UNIT/ML 3 ML VIAL SQ PRN ×4 (06:22→21:51)
[2021-11-23 06:25] LABS: BASOPHILS % (AUTO) 0.2 % (0.0-2.0); HEMATOCRIT 22 % (33-45); HEMOGLOBIN 7.3 g/dL (11.5-14.8); LYMPHOCYTES # (AUTO) 0.7 K/uL (0.8-4.8); LYMPHOCYTES % (AUTO) 10.2 % (20.0-44.0); MEAN CORPUSCULAR HGB CONC 34 g/dl (31.0-36.0); MEAN CORPUSCULAR VOLUME 98 fL (82-100); MONOCYTES # (AUTO) 0.4 K/uL (0.1-1.30); MONOCYTES % (AUTO) 6.1 % (2.0-12.0); NEUTROPHILS # (AUTO) 5.8 K/uL (1.8-8.9); NEUTROPHILS % (AUTO) 83.5 % (43.0-81.0); PLATELET COUNT (AUTO) 91 K/uL (150-450); WHITE BLOOD COUNT (AUTO) 6.9 K/uL (4.3-11.0)
--- NOTE | 2021-11-23 06:51 | NUR ---
MS RN CLOSING NOTES PATIENT IN BED AWAKE, ALERT AND ORIENTED X3. WITH OXYGEN INHALATION @ 2LPM VIA NASAL CANNULA; TOLERATING WELL. IN NO ACUTE DISTRESS NOTED. ABLE TO MAKE NEEDS KNOWN. IN NO ACUTE DISTRESS NOTED. DENIES ANY PAIN OR DISCOMFORT OF THIS TIME. SAFETY MEASURES IN PLACE. ENDORSED TO MORNING SHIFT NURSE FOR CONTINUITY OF CARE.
[2021-11-23 08:00] VITALS: BP 183/62
[2021-11-23] MEDS: METOPROLOL TARTRATE 25 MG TABLET PO SCH ×4 (09:00→17:47)
[2021-11-23] MEDS: LACTULOSE 10 G/15 ML UDC (PYXIS) PO SCH ×3 (09:00→17:46)
[2021-11-23] MEDS ORDERED: VANCOMYCIN 1 GM in IV D5W 250 ML IV PRN (13:00)
[2021-11-23] MEDS: LEVOTHYROXINE SODIUM 125 MCG TABLET PO SCH (13:19)
[2021-11-23] MEDS: ZINC SULFATE 220 MG CAPSULE PO SCH (13:29)
[2021-11-23] MEDS: ATORVASTATIN 10 MG TABLET PO SCH (13:29)
[2021-11-23] MEDS: RIFAXIMIN 550 MG TABLET PO SCH ×2 (13:31→21:16)
--- NOTE | 2021-11-23 15:00 | NUR ---
dialyzed today bp med for high bp not given in am due to dialysis.
[2021-11-23 16:00] VITALS: BP 147/76
--- NOTE | 2021-11-23 19:30 | NUR ---
MS RN NOTES RECEIVED LAYING ON BED,A/O X3-4,SPEAK UPPER SORBIAN,BREATHING REGULAR,NOT IN ANY FORM OF DISTRESS,WITH SALINE LOCK RIGHT UPPER ARM MIDLINE AND LEFT WRIST SALINE LOCK FOR IV ACCESS,BOTH INTACT AND PATENT WITH SALINE FLUSH.NOTED BLISTER ON RIGHT PLANTAR FOOT THAT WAS POP OUT,CLEANED AND COVERED WITH TEGADERM.WITH BILATERAL LOWER LEG PITTING EDEMA,ENCOURAGED TO ELEVATE LEGS ON PILLOWS.RIGHT UPPER CHEST PERMA CATH FOR HD ACCESS.AMBULATE WITH ASSIST.CALL LIGHT IN REACH,NEEDS ANTICIPATED.
[2021-11-23 20:00] VITALS: BP 180/84
--- NOTE | 2021-11-23 20:00 | NUR ---
MS RN NOTES BPO- 180/84,43 CHECKED AT 2029 AND IT WAS 170/98,PLACE ON TELE MONITOR,APRESOLINE 10MG IV GIVEN ORDERED FOR SBP>160,
--- NOTE | 2021-11-23 20:15 | NUR ---
MS RN NOTES BP RECHECKED AFTER GIVING APRESOLINE IV 152/99,WITH HD TODAY,TAKEN OUT 2.2 LITER REPORTED.
[2021-11-23 20:30] VITALS: BP 170/90
--- NOTE | 2021-11-23 21:06 | NUR ---
SHELLAC POLISHER NOTES APRESOLINE 10MG IV GIVEN SLOWLY FOR BP 170/98.WILL CONTINUE TO MONITOR
[2021-11-23] MEDS: hydrALAZINE HCL IV 20 MG VIAL IV PRN (21:08)
[2021-11-23] MEDS: INSULIN GLARGINE, 100 UNIT/ML CARTRIDGE SQ SCH (21:52)
--- NOTE | 2021-11-23 22:00 | NUR ---
MS RN NOTES ACCU-CHECK BLOOD SUGAR CHECK 169,COVERED WITH HUMULIN R 3UNITS ALONG WITH LANTUS 20UNITS SCHEDULED.SNACKS PROVIDED AT BEDSIDE.
[2021-11-23 22:11] VITALS: BP 152/99
[2021-11-23] MEDS: CEFEPIME 1 GM in IV D5W 50 ML IV SCH (22:54)
--- NOTE | 2021-11-24 01:00 | NUR ---
MS RN NOTES PREFERS TO LAY DOWN ON PATITO CHAIR,PROVIDED.
--- NOTE | 2021-11-24 03:00 | NUR ---
MS RN NOTES SLEEPING THIS TIME,KEPT WARM AND COMFORTABLE
[2021-11-24] MEDS: BLOOD SUGAR DIAGNOSTIC 1 EACH STRIP IN SCH ×4 (06:03→17:22)
--- NOTE | 2021-11-24 06:15 | NUR ---
MS RN NOTES ACCU-CHECK BLOOD SUGAR CHECK 102,NO INSULIN COVERAGE.
--- NOTE | 2021-11-24 06:38 | NUR ---
MS RN NOTES SALINE LOCK LEFT WRIST ACCIDENTALLY PULLED OUT.
--- NOTE | 2021-11-24 06:41 | NUR ---
MS RN NOTES NO EPISODE OF SOB NOTED.ALL DUE MEDS ADMINISTERED SCHEDULED.WOUND CONSULT WITH TREATMENT ON RIGHT PLANTAR BLISTER THAT WAS POP OUT EARLIER.NO DISTRESS.ENDORSED TO DAY NURSE FOR AJAY.
[2021-11-24 06:42] LABS: BASOPHILS % (AUTO) 0.2 % (0.0-2.0); EOSINOPHILS % (AUTO) 5.1 % (0.0-6.0); HEMATOCRIT 23 % (33-45); LYMPHOCYTES # (AUTO) 1.4 K/uL (0.8-4.8); LYMPHOCYTES % (AUTO) 17.3 % (20.0-44.0); MEAN CORPUSCULAR HGB CONC 35 g/dl (31.0-36.0); MEAN CORPUSCULAR VOLUME 96 fL (82-100); MONOCYTES # (AUTO) 0.7 K/uL (0.1-1.30); MONOCYTES % (AUTO) 8.6 % (2.0-12.0); NEUTROPHILS # (AUTO) 5.4 K/uL (1.8-8.9); NEUTROPHILS % (AUTO) 68.8 % (43.0-81.0); PLATELET COUNT (AUTO) 104 K/uL (150-450); RED BLOOD CELL COUNT(AUTO) 2.39 MIL/uL (4.0-5.2); WHITE BLOOD COUNT (AUTO) 7.9 K/uL (4.3-11.0)
[2021-11-24 07:06] LABS: CREATININE 3.4 mg/dL (0.6-1.3); MAGNESIUM 2.2 mg/dL (1.8-2.4); PHOSPHORUS 3.7 mg/dL (2.5-4.9); POTASSIUM 3.9 mmol/L (3.5-5.1)
--- NOTE | 2021-11-24 07:20 | NUR ---
MS RN OPENING NOTES RECEIVED PATIENT AWAKE IN BED,A/O X3-4, SPEAK AFGHAN. ON RA WITH NO S/SX OF RESP DISTRESS NOTED. RIGHT UPPER ARM MIDLINE INTACT AND PATENT, SALINE LOCKED. RIGHT UPPER CHEST PERMA CATH FOR HD, INTACT. BILATERAL LOWER LEG PITTING EDEMA, ENCOURAGED TO ELEVATE LEGS ON PILLOWS. SAFETY MEASURES IN PLACE. WILL CONTINUE TO MONITOR
[2021-11-24 08:00] VITALS: BP 191/73
[2021-11-24] MEDS: LACTULOSE 10 G/15 ML UDC (PYXIS) PO SCH ×3 (08:18→16:36)
[2021-11-24] MEDS: ZINC SULFATE 220 MG CAPSULE PO SCH (08:19)
[2021-11-24] MEDS: RIFAXIMIN 550 MG TABLET PO SCH (08:19)
[2021-11-24] MEDS: LEVOTHYROXINE SODIUM 125 MCG TABLET PO SCH (08:19)
[2021-11-24] MEDS: ATORVASTATIN 10 MG TABLET PO SCH (08:19)
[2021-11-24] MEDS: METOPROLOL TARTRATE 25 MG TABLET PO SCH ×3 (08:20→16:36)
--- NOTE | 2021-11-24 08:22 | NUR ---
RN NOTES PATIENTS BP IS 191/89 WITH HR OF 66 BPM. HAD HD YESTERDAY WITH 2.2L OUTPUT AND TOLERATED WELL. CURRENTLY DENIES HEADACHE, BLURRED VISION OR ANY PAIN. MORNING MEDS GIVEN. WILL RE ASSESS BP AND CONTINUE TO MONITOR PATIENT.
[2021-11-24] MEDS: hydrALAZINE HCL IV 20 MG VIAL IV PRN (09:23)
[2021-11-24] MEDS ORDERED: LACT10SO58 PO (11:07)
[2021-11-24] MEDS: INSULIN REGULAR, HUMAN 100 UNIT/ML 3 ML VIAL SQ PRN ×2 (12:49→17:16)
--- NOTE | 2021-11-24 16:30 | NUR ---
RN NOTES PATIENT MEDICALLY STABLE FOR DISCHARGE. TRANSPORTATION IS ARRANGED TO PARK RECREATION MANAGER PATIENT @ 1800 TO TRANSFER HOME.
[2021-11-24 16:36] VITALS: BP 186/73
--- NOTE | 2021-11-24 18:56 | NUR ---
MAINTENANCE MECHANIC ELEVATORS NOTES DISCHARGE INSTRUCTIONS GONE OVER WITH PATIENT. PATIENT UNDERSTANDS HEALTH STATUS AND MEDICATION REGIMEN AT HOME. ALL BELONGINGS ACCOUNTED FOR. DISCOLORATIONS ON SKIN REMAIN THE SAME OR HAVE IMPROVED SINCE ADMISSION, SKIN INTACT. IV ACCESS REMOVED. ID BAND REMOVED. PATIENT PICKED UP BY 2 EMT AND TRANSPORTED BY AMBULANCE TO HOME.
== END 2021-11-24 19:00 | disposition home or self-care (01) | DRG 425 ==
LOC: ER 15:20 → TELE 21:43 → MED 11-21 09:50
PROVIDERS: ADMIT Nurse Practitioner Family; ATTEND Student in an Organized Health Care Education/Training Program
PROC: 5A1D70Z Performance of Urinary Filtration, Intermittent, Less than 6 Hours Per Day (ICD-10-PCS; principal; 2021-11-22)
PROC: 05HB33Z Insertion of Infusion Device into Right Basilic Vein, Percutaneous Approach (ICD-10-PCS; 2021-11-22)
DX: E87.70 Fluid overload, unspecified (principal); K72.00 Acute and subacute hepatic failure without coma; G93.41 Metabolic encephalopathy; E44.0 Moderate protein-calorie malnutrition; E72.20 Disorder of urea cycle metabolism, unspecified; D69.6 Thrombocytopenia, unspecified; I12.0 Hypertensive chronic kidney disease with stage 5 chronic kidney disease or end stage renal disease; J18.9 Pneumonia, unspecified organism; N18.6 End stage renal disease; J90 Pleural effusion, not elsewhere classified; E11.22 Type 2 diabetes mellitus with diabetic chronic kidney disease; D63.8 Anemia in other chronic diseases classified elsewhere; E87.1 Hypo-osmolality and hyponatremia; K74.60 Unspecified cirrhosis of liver; Z20.822 Contact with and (suspected) exposure to COVID-19; Z99.2 Dependence on renal dialysis; Z88.0 Allergy status to penicillin; Z79.4 Long term (current) use of insulin; Z79.82 Long term (current) use of aspirin; Z79.899 Other long term (current) drug therapy; Z79.84 Long term (current) use of oral hypoglycemic drugs; E03.9 Hypothyroidism, unspecified; E78.5 Hyperlipidemia, unspecified; E87.6 Hypokalemia; E88.09 Other disorders of plasma-protein metabolism, not elsewhere classified; K21.9 Gastro-esophageal reflux disease without esophagitis; Z96.89 Presence of other specified functional implants; J98.11 Atelectasis; K80.20 Calculus of gallbladder without cholecystitis without obstruction
CPT/HCPCS: 36410; 36415; 71045-TC; 80048-TC; 80076-TC; 80202-TC; 82140-TC; 82962-TC; 83540-TC; 83735-TC; 83880; 84100-TC; 84439-TC; 84443-TC; 84484-TC; 85025-TC; 85730-TC; 86706; 87040-TC; 87081-TC; 87340; 90935-TC; 97116-TC; 97530-TC; C9803; G0378; J0360; J0692; J1815; J1940; J2405; J2930; J3370; J7030; J7050; J7060

== ENCOUNTER 2022-01-18 20:30 | Inpatient (IN) | payer OTHER ==
[~2022-01-18] VITALS: Ht 160 cm; Wt 84.4 kg
[~2022-01-18 20:30] MED LIST changes: +LACT10SO58 PO
--- NOTE | 2022-01-18 21:15 | NUR ---
PATIENT BIBRA C/O ALTERED SINCE 1600. PATIENT TAKEN TO ER BED 11. PATIENT A/O X 1, RR EVEN AND UNLABORED, NO SOB NOTED. PATIENT CONNECTED TO LEAD SHOP OPERATOR AND POX. WILL CONTINUE TO MONITOR.
[2022-01-18] MEDS ORDERED: VANCOMYCIN 1 GM in IV D5W 250 ML IV ONE (21:30)
[2022-01-18] MEDS ORDERED: AZTREONAM 2 G in IV NS 0.9% 100 ML IV ONE (21:30)
[2022-01-18] MEDS ORDERED: ACETAMINOPHEN ES 500 MG TABLET PO ONE (21:30)
--- NOTE | 2022-01-18 21:37 | NUR ---
X RAY AT BEDSIDE
--- NOTE | 2022-01-18 21:38 | NUR ---
PATIENT TO CT
--- NOTE | 2022-01-18 21:46 | NUR ---
COVID SWAB COLLECTED
--- NOTE | 2022-01-18 21:47 | NUR ---
PATIENT FROM CT
[2022-01-18] MEDS ORDERED: VANCOMYCIN 1 GM VIAL ONE (21:53)
[2022-01-18] MEDS ORDERED: AZTREONAM 1 G VIAL ONE (21:53)
[2022-01-18] MEDS ORDERED: ACETAMINOPHEN ES 500 MG TABLET ONE (21:53)
[2022-01-18 22:30] LABS: BASOPHILS # (AUTO) 0.1 K/uL (0.0-0.2); BASOPHILS % (AUTO) 0.4 % (0.0-2.0); EOSINOPHILS % (AUTO) 0.1 % (0.0-6.0); HEMATOCRIT 33 % (33-45); HEMOGLOBIN 10.6 g/dL (11.5-14.8); LYMPHOCYTES # (AUTO) 0.7 K/uL (0.8-4.8); LYMPHOCYTES % (AUTO) 4.8 % (20.0-44.0); MEAN CORPUSCULAR HGB CONC 33 g/dl (31.0-36.0); MEAN CORPUSCULAR VOLUME 97 fL (82-100); MONOCYTES # (AUTO) 0.6 K/uL (0.1-1.30); MONOCYTES % (AUTO) 4.3 % (2.0-12.0); NEUTROPHILS % (AUTO) 90.4 % (43.0-81.0); PLATELET COUNT (AUTO) 110 K/uL (150-450); RED BLOOD CELL COUNT(AUTO) 3.36 MIL/uL (4.0-5.2); WHITE BLOOD COUNT (AUTO) 14.4 K/uL (4.3-11.0)
[2022-01-18 22:41] LABS: SERUM AMMONIA 33 umol/L (11-32)
[2022-01-18 22:46] LABS: ALANINE AMINOTRANSFERASE 21 U/L (12-78); ALBUMIN 2.1 g/dL (3.4-5.0); ALKALINE PHOSPHATASE 218 U/L (46-116); ASPARTATE AMINOTRANSFERASE 51 U/L (15-37); BILIRUBIN,DIRECT 0.6 mg/dL (0.0-0.2); BILIRUBIN,TOTAL 1.5 mg/dL (0.2-1.0); CALCIUM, SERUM 8.3 mg/dL (8.5-10.1); CARBON DIOXIDE 32 mmol/L (21-32); CHLORIDE 97 mmol/L (98-107); CREATININE 2.9 mg/dL (0.6-1.3); GLUCOSE 190 mg/dL (74-106); POTASSIUM 3.6 mmol/L (3.5-5.1); SODIUM SERUM 135 mmol/L (136-145); TOTAL PROTEIN, SERUM 7.3 g/dL (6.4-8.2); UREA NITROGEN, BLOOD 22 mg/dL (7-18)
[2022-01-18 22:54] LABS: THYROID STIMULATING HORMONE 0.307 uIU/mL (0.358-3.74)
[2022-01-18 23:07] LABS: ALCOHOL, BLOOD < 3 mg/dL (0-0)
--- NOTE | 2022-01-18 23:40 | NUR ---
UPDATED CM WITH CLINICAL INFO
[2022-01-18 23:59] LABS: BILIRUBIN,URINE MODERATE (NEGATIVE); COLOR,URINE DARK YELLOW (YELLOW); LEUKOCYTE ESTERASE ,URINE TRACE (NEGATIVE); NITRITE, URINE NEGATIVE (NEGATIVE); PH,URINE 5.5 (5.0-8.0); PROTEIN,URINE >=300 mg/dl (NEGATIVE); UGLUCOSE NEGATIVE (NEGATIVE); UROBILINOGEN,URINE 0.2 EU/dL (0.2)
[2022-01-19 00:13] LABS: BACTERIA,URINE Many /HPF (None Seen); SQUAMOUS EPITHELIAL CELL,UR Few /HPF (None Seen)
[2022-01-19] MEDS ORDERED: ACETAMINOPHEN 325 MG TABLET PO PRN (01:30)
[2022-01-19] MEDS ORDERED: Z GUARD REMEDY 4 OZ OINT TP PRN (01:30)
[2022-01-19] MEDS ORDERED: ONDANSETRON HCL/PF 4 MG/2 ML VIAL IVP PRN (01:30)
[2022-01-19 06:00] LABS: BASOPHILS # (AUTO) 0.1 K/uL (0.0-0.2); BASOPHILS % (AUTO) 0.4 % (0.0-2.0); HEMATOCRIT 33 % (33-45); HEMOGLOBIN 10.8 g/dL (11.5-14.8); LYMPHOCYTES # (AUTO) 0.8 K/uL (0.8-4.8); LYMPHOCYTES % (AUTO) 5.5 % (20.0-44.0); MEAN CORPUSCULAR HGB CONC 33 g/dl (31.0-36.0); MEAN CORPUSCULAR VOLUME 97 fL (82-100); MONOCYTES # (AUTO) 0.4 K/uL (0.1-1.30); MONOCYTES % (AUTO) 2.8 % (2.0-12.0); NEUTROPHILS # (AUTO) 13.1 K/uL (1.8-8.9); NEUTROPHILS % (AUTO) 91.3 % (43.0-81.0); PLATELET COUNT (AUTO) 87 K/uL (150-450); RED BLOOD CELL COUNT(AUTO) 3.41 MIL/uL (4.0-5.2); WHITE BLOOD COUNT (AUTO) 14.4 K/uL (4.3-11.0)
[2022-01-19 06:39] LABS: ALBUMIN 2.1 g/dL (3.4-5.0); BILIRUBIN,TOTAL 1.3 mg/dL (0.2-1.0); CALCIUM, SERUM 8.5 mg/dL (8.5-10.1); CREATININE 3.4 mg/dL (0.6-1.3); MAGNESIUM 2.3 mg/dL (1.8-2.4); POTASSIUM 4.1 mmol/L (3.5-5.1); TOTAL PROTEIN, SERUM 7.8 g/dL (6.4-8.2)
--- NOTE | 2022-01-19 07:38 | NUR ---
GOING TO 307.2
[2022-01-19] MEDS: PANTOPRAZOLE 40 MG TABLET.DR PO SCH (08:00)
--- NOTE | 2022-01-19 08:09 | NUR ---
REPORT GIVEN TO NICOLAS MCCARTHY FOR AJAY
[2022-01-19] MEDS ORDERED: HYDR-4077 PO (08:25)
[2022-01-19] MEDS ORDERED: LISI10TA29 PO (08:25)
[2022-01-19] MEDS ORDERED: SPIR25TA6 PO (08:25)
[2022-01-19] MEDS ORDERED: ASPI-1169 PO (08:37)
[2022-01-19] MEDS ORDERED: LACTULOSE 10 G/15 ML UDC (PYXIS) PO ONE (09:00)
--- NOTE | 2022-01-19 09:45 | NUR ---
ADMISSION RN NOTES ADMITTED A 66 Y/O FEMALE TO UNIT AT 0912 VIA GURNEY ACCOMPANIED BY Fatoumata NURSE WITH DX OF SEPSIS. PT IS A/O X1, CONFUSE. REORIENTED PT NEEDED. PT IS ORIENTED TO STAFF AND UNIT. VITAL SIGNS IS TAKEN AND RECORDED. PT ON O2 AT 2L/MIN VIA NASAL CANNULA, TOLERATING WELL WITH SPO2 AT 95%. BREATHING EVEN AND UNLABORED. LUNG SOUNDS CLEAR BILATERALLY ON AUSCULTATION. NOT IN ANY SIGN OF DISTRESS. PT IS PLACED ON CARDIAC TELE MONITOR WITH CURRENT READING OF SINUS RHYTHM, HR 75. NO C/O OF CARDIAC DISTRESS VOICED AT THIS TIME. PHOTOGRAPHS OF SKIN ISSUES TAKEN AND FILED IN THE CHART. ABDOMEN SOFT AND NON-TENDER. BOWEL SOUNDS PRESENT IN ALL FOUR QUADRANTS. IV ACCESS IN RIGHT WRIST G #22 SALINE LOCK, INTACT, AND PATENT. PT HAS DIALYSIS SITE IN RIGHT CHEST PERMA CATH, INTACT. SAFETY MEASURES INITIATED: BED IN LOWEST AND LOCKED POSITION, SIDE RAILS UPX2, BED ALARM ON, AND CALL LIGHT WITHIN REACH. WILL CONTINUE TO MONITOR PT.
[2022-01-19] MEDS ORDERED: CEFTRIAXONE 2 G in IV D5W 100 ML IV SCH (10:00)
[2022-01-19] MEDS: HEPARIN SODIUM, PORCINE 5000 UNITS/1 ML VIAL SQ SCH ×2 (10:18→21:00)
--- NOTE | 2022-01-19 10:19 | NUR ---
RN NOTE PT'S PLATELET LEVEL IS 87 AND HAS A MEDICATION HEPARIN 5000 UNITS SQ SCHEDULED AT 0900. CALLED AMAYA RIBEIRO NP AND MADE HER AWARE AND PER AMAYA TO STILL GIVE HEPARIN.
[2022-01-19] MEDS ORDERED: CEFEPIME 2 GM in IV D5W 100 ML IV SCH (12:00)
[2022-01-19] MEDS ORDERED: VANCOMYCIN POST DIALYSIS 500MG IV PRN ×2 (14:00)
--- NOTE | 2022-01-19 16:03 | NUR ---
RN NOTE RECEIVED AN ORDER FROM AMAYA RIBEIRO NP TO START PT ON MILD SLIDING SCALE.
[2022-01-19] MEDS: BLOOD SUGAR DIAGNOSTIC 1 EACH STRIP IN SCH ×2 (17:07→22:07)
[2022-01-19] MEDS: INSULIN REGULAR, HUMAN 100 UNIT/ML 3 ML VIAL SQ PRN ×2 (17:08→22:13)
[2022-01-19] MEDS ORDERED: DEXTROSE 50%-WATER 50 ML DISP.SYRIN IV PRN (17:30)
[2022-01-19] MEDS ORDERED: IV NS 0.9% 1,000 ML IV STA (17:56)
[2022-01-19] MEDS ORDERED: TRAMADOL HCL 50 MG TABLET PO PRN (18:30)
--- NOTE | 2022-01-19 19:19 | NUR ---
SOFTWARE DEVELOPER MANAGER CLOSING NOTES PT IN BED ASLEEP, EASILY AROUSED. PT IS NOW A/O X3, WITH EPISODE OF CONFUSION. ON O2 AT 2L/MIN VIA NASAL CANNULA, TOLERATING WELL WITH SPO2 AT 95%. BREATHING EVEN AND UNLABORED. NOT IN ANY SIGN OF DISTRESS. ON CARDIAC TELE MONITOR WITH CURRENT READING OF SINUS RHYTHM, HR 69. NO C/O OF CARDIAC DISTRESS VOICED AT THIS TIME. IV ACCESS IN RIGHT WRIST G #22 SALINE LOCK, INTACT, AND PATENT. RIGHT UPPER CHEST PERMA CATH, INTACT. ALL NEEDS ATTENDED. KEPT CLEAN AND COMFORTABLE. SAFETY MEASURES INITIATED: BED IN LOWEST AND LOCKED POSITION, SIDE RAILS UPX2, BED ALARM ON, AND CALL LIGHT WITHIN REACH. ENDORSED TO DIRECTOR IMAGING NURSE FOR AJAY.
[2022-01-19] MEDS ORDERED: MIDODRINE HCL (5MG) 5 MG TABLET PO PRN (19:30)
[2022-01-19 20:10] VITALS: BP 116/57
[2022-01-19] MEDS: LACTULOSE 10 G/15 ML UDC (PYXIS) PO SCH (21:17)
--- NOTE | 2022-01-19 21:55 | NUR ---
DIESEL DRAGLINE OPERATOR OPENING NOTE RECEIVED PATIENT IN BED, WITH EYES CLOSED, VERY LETHARGIC AT THIS TIME. NO S/S OF APPARENT DISTRESS IN ROOM AIR. NOT EXHIBITING PAIN VIA FLACC. TELE MONITOR READING SR WITH 66BPM. R. WRIST #22G ON SALINE LOCK. RCW PERMACATH NOTED IN PLACE. SAFETY IN PLACE. WILL CONTINUE WITH PLAN OF CARE FOR PATIENT.
[2022-01-19] MEDS: INSULIN GLARGINE, 100 UNIT/ML CARTRIDGE SQ SCH (22:11)
[2022-01-20 00:04] VITALS: BP 119/62
[2022-01-20 04:41] VITALS: BP 124/66
--- NOTE | 2022-01-20 05:00 | NUR ---
LEAD MOBILE DEVELOPER NOTE PATIENT MORE ALERT THIS AM. A/OX2-3. VOYCE EVENT SALES ASSISTANT USED TO OBTAIN CONSENT FOR HEMODIALYSIS. PATIENT AGREEABLE, CONSENT SIGNED AT THIS TIME.
[2022-01-20] MEDS: BLOOD SUGAR DIAGNOSTIC 1 EACH STRIP IN SCH ×4 (06:56→21:55)
[2022-01-20] MEDS: INSULIN REGULAR, HUMAN 100 UNIT/ML 3 ML VIAL SQ PRN ×3 (06:58→21:58)
[2022-01-20 07:06] LABS: CREATININE 4.3 mg/dL (0.6-1.3); MAGNESIUM 2.4 mg/dL (1.8-2.4); PHOSPHORUS 4.6 mg/dL (2.5-4.9); POTASSIUM 3.9 mmol/L (3.5-5.1)
--- NOTE | 2022-01-20 07:19 | NUR ---
MORTGAGE LOAN CLOSER CLOSING PATIENT IN BED, A/OX2-3, ROMANIAN SPEAKING ONLY. NO S/S OF APPARENT DISTRESS IN ROOM AIR. DENIES PAIN AT THIS TIME. NO FLUIDS RUNNING. PATIENT PASSED X1 BM. NEEDS ATTENDED. ALL SCHEDULED MEDICATIONS ADMINISTERED. FOR HD TODAY. ENDORSED TO MARLENE, MORNING SHIFT RN FOR CONTINUITY OF CARE. TELE MONITOR READING SR THROUGHOUT SHIFT.
--- NOTE | 2022-01-20 07:19 | NUR ---
MS RN OPENING NOTES RECEIVED PATIENT AWAKE IN BED IN NO ACUTE SIGNS OF DISTRESS. A/O X2-3. PERSIAN SPEAKING, DENIES PAIN OR ANY DISCOMFORTS AT THIS TIME. IV ACCESS ON RIGHT HAND G#12 INTACT AND PATENT. PT WITH PERMA CATH IN PLACE ON RCW. ON ROOM AIR AT THIS TIME, TOLERATING WELL WITH NO SOB NOTED. SAFETY MEASURES IN PLACE: BED IN LOWEST LOCKED POSITION WITH SR UP X2. CALL LIGHT W/IN EASY REACH. WILL CONTINUE TO MONITOR PT ACCORDINGLY.
[2022-01-20] MEDS ORDERED: PANTOPRAZOLE 40 MG TABLET.DR PO SCH (07:30)
[2022-01-20] MEDS: PANTOPRAZOLE 40 MG TABLET.DR PO SCH (07:32)
--- NOTE | 2022-01-20 07:57 | NUR ---
CLINICAL PHARMACIST OPENING NOTES RECEIVED PATIENT AWAKE IN BED, A/O X4, RESPONDS TO VERBAL AND TACTILE STIMULI, VIETNAMESE SPEAKING ONLY. ABLE TO VERBALIZE NEEDS. ON ROOM AIR TOLERATING WELL. NO SOB NOR ANY S/SX OF RESPIRATORY DISTRESS NOTED. TELE MONITOR SHOWS SINUS RHYTHM WITH RATE OF 67 AT THIS TIME. IV ACCESS IN R HAND#22G AND RUC PERMACATH. ALL IV LINES ARE INTACT, PATENT, AND FLUSHING WELL, COVERED WITH DRY DRESSING WITH NO SIGNS OF INFECTION OR OCCLUSION. SAFETY PRECAUTIONS IN PLACE: BED IN LOWEST, LOCKED POSITION, SIDE RAILS UPx2, AND BRAKES ON. TRAY TABLE AND CALL LIGHT WITHIN REACH. SCHEDULED TO HAVE HEMODIALYSIS TODAY. WILL CONTINUE TO MONITOR.
[2022-01-20 08:00] VITALS: BP 166/83
--- NOTE | 2022-01-20 08:54 | NUR ---
RN NOTES PT ON ONGOING HD NOW VIA RCW PERMCATH. FEED AND FARM MANAGEMENT ADVISER CAME AND TOOK 2 BOTTLES SPECIMEN FOR BLOOD CULTURE TO R/O INFECTED PERMACATHETER.
[2022-01-20] MEDS ORDERED: BETHANECHOL CHLORIDE 50 MG TABLET PO SCH (09:00)
[2022-01-20 09:03] LABS: BASOPHILS % (AUTO) 0.6 % (0.0-2.0); EOSINOPHILS % (AUTO) 3.7 % (0.0-6.0); HEMATOCRIT 27 % (33-45); HEMOGLOBIN 9.1 g/dL (11.5-14.8); LYMPHOCYTES # (AUTO) 0.7 K/uL (0.8-4.8); LYMPHOCYTES % (AUTO) 9.1 % (20.0-44.0); MEAN CORPUSCULAR HGB CONC 33 g/dl (31.0-36.0); MEAN CORPUSCULAR VOLUME 97 fL (82-100); MONOCYTES # (AUTO) 0.4 K/uL (0.1-1.30); MONOCYTES % (AUTO) 5.1 % (2.0-12.0); NEUTROPHILS # (AUTO) 6.3 K/uL (1.8-8.9); NEUTROPHILS % (AUTO) 81.5 % (43.0-81.0); PLATELET COUNT (AUTO) 83 K/uL (150-450); RED BLOOD CELL COUNT(AUTO) 2.81 MIL/uL (4.0-5.2); WHITE BLOOD COUNT (AUTO) 7.7 K/uL (4.3-11.0)
--- NOTE | 2022-01-20 09:09 | NUR ---
WOUND CARE CONSULT: PT PRESENTS WITH RT LOWER LEG REDNESS AND SWELLING WELL RT ARM DISCOLORATION AND DRY SCABS, PRESENT ON ADMISSION. PT HAVING DIALYSIS AT THIS TIME. ADMISSION PHOTO INDICATES RT GROIN AREA RASH/REDNESS. RECOMMENDATIONS MADE FOR SKIN PROTECTION. DISCUSSED WITH NURSING STAFF. DR GOLDMAN CALLED FOR DPM CONSULT. IN AGREEMENT WITH PLAN OF CARE.
[2022-01-20] MEDS: LACTULOSE 10 G/15 ML UDC (PYXIS) PO SCH ×4 (09:17→20:23)
[2022-01-20] MEDS: METOPROLOL TARTRATE 25 MG TABLET PO SCH ×2 (09:18→17:31)
[2022-01-20] MEDS: BETHANECHOL CHLORIDE (25 MG) 25 MG TABLET PO SCH ×3 (09:18→17:31)
[2022-01-20] MEDS: ASPIRIN 81 MG TAB.CHEW PO SCH (09:19)
[2022-01-20] MEDS: LISINOPRIL (10MG) 10 MG TABLET PO SCH (09:19)
[2022-01-20] MEDS: SPIRONOLACTONE 25 MG TABLET PO SCH (09:19)
[2022-01-20] MEDS: RIFAXIMIN 550 MG TABLET PO SCH ×2 (09:19→17:32)
[2022-01-20] MEDS: PROPRANOLOL HCL 10 MG TABLET PO SCH ×2 (09:20→17:31)
[2022-01-20] MEDS: ATORVASTATIN 10 MG TABLET PO SCH (09:20)
[2022-01-20] MEDS: hydrALAZINE HCL 50 MG TABLET PO SCH ×3 (09:20→17:32)
[2022-01-20] MEDS: HEPARIN SODIUM, PORCINE 5000 UNITS/1 ML VIAL SQ SCH ×2 (09:23→20:25)
[2022-01-20] MEDS: INSULIN LISPRO/ASPART 100 UNIT/ML CARTRIDGE SQ SCH ×3 (09:56→17:00)
[2022-01-20 10:43] LABS: EOSINOPHILS % (MANUAL) 1 % (0-4); LYMPHOCYTES % (MANUAL) 10 % (16-48); MONOCYTES % (MANUAL) 4 % (0-11.0); NEUTROPHILS % (MANUAL) 85 (42-76)
--- NOTE | 2022-01-20 11:51 | NUR ---
RN NOTES PT JUST FINISHED HEMODIALYSIS BY NURSE ROY VIA RCW PERMACATH AND TOLERATED PROCEDURE WITH 2,000 ML OUT. WILL CONTINUE TO MONITOR.
[2022-01-20 12:00] VITALS: BP 164/85
[2022-01-20] MEDS: CEFEPIME 1 GM in IV D5W 50 ML IV SCH (14:06)
[2022-01-20 16:00] VITALS: BP 125/87
--- NOTE | 2022-01-20 16:52 | NUR ---
RN NOTES CALLED X-RAY DEPT, SPOKED TO KALEIGH AND STATED THAT HE WILL DO X-RAY OF PT'S RIGHT FOOT TODAY.
[2022-01-20] MEDS: CLOTRIMAZOLE 1% 15 GM TUBE TP SCH (17:42)
--- NOTE | 2022-01-20 18:43 | NUR ---
COVERAGE SPECIALIST CLOSING NOTES RECEIVED PATIENT AWAKE IN BED, A/O X4, AMBULATORY, RESPONDS TO VERBAL AND TACTILE STIMULI, TRINIDADIAN SPEAKING ONLY. ABLE TO VERBALIZE NEEDS. ON ROOM AIR TOLERATING WELL. NO SOB NOR ANY S/SX OF RESPIRATORY DISTRESS NOTED. TELE MONITOR SHOWS SINUS RHYTHM WITH RATE OF 73 AT THIS TIME. IV ACCESS IN R HAND #22G SALINE LOCK AND RUC PERMACATH. ALL IV LINES ARE INTACT, PATENT, AND FLUSHING WELL, COVERED WITH DRY DRESSING WITH NO SIGNS OF INFECTION OR OCCLUSION. SAFETY PRECAUTIONS IN PLACE: BED IN LOWEST, LOCKED POSITION, SIDE RAILS UPx2, AND BRAKES ON. TRAY TABLE AND CALL LIGHT WITHIN REACH. WILL ENDORSE TO THE NEXT NOC SHIFT NURSE.
--- NOTE | 2022-01-20 19:30 | NUR ---
TOXICOLOGY TEACHER NOTES RECEIVED USING THE RESTROOM,AMBULATE WITH WALKER,A/O X2-3.BREATH REGULAR,NOT IN ANY FORM OF RESPIRATORY DISTRESS.WITH SALINE LOCK RIGHT HAND INTACT AND PATENT,RIGHT CHEST WALL PERMA CATH FOR HD ACCESS.HAD ONE TODAY,2 LITERS OUT.NO NEW CONCERN AT THE MOMENT,CALL LIGHT IN REACH,NEEDS ANTICIPATED.
[2022-01-20 20:00] VITALS: BP 138/76
[2022-01-20] MEDS: INSULIN GLARGINE, 100 UNIT/ML CARTRIDGE SQ SCH (21:57)
--- NOTE | 2022-01-20 22:00 | NUR ---
SECURITIES VAULT SUPERVISOR NOTES ACCU-CHECK BLOOD SUGAR CHECK 036,COVERED WITH HUMULIN R 2 UNITS ALONG WITH LANTUS 35 UNITS ORDERED,SNACKS PROVIDED PER PATIENT REQUEST.
[2022-01-20] MEDS ORDERED: VANCOMYCIN 1 GM in IV D5W 250ml IV SCH (23:00)
[2022-01-21] VITALS (8 sets, daily range): BP systolic 114–158; BP diastolic 55–81
--- NOTE | 2022-01-21 05:30 | NUR ---
AIRCRAFT SKIN BURNISHER NOTES ACCU-CHECK BLOOD SUGAR CHECK 152,COVERED WITH HUMULIN R 2 UNITS PER SLIDING SCALE.
[2022-01-21] MEDS: BLOOD SUGAR DIAGNOSTIC 1 EACH STRIP IN SCH ×4 (05:35→21:14)
[2022-01-21] MEDS: INSULIN REGULAR, HUMAN 100 UNIT/ML 3 ML VIAL SQ PRN ×2 (05:36→21:14)
--- NOTE | 2022-01-21 06:35 | NUR ---
TIERCE FILLER NOTES FAIRLY RESTED AT NIGHT,AFEBRILE,,ON FLUID RESTRICTION,ON HD TREATMENT.IN NO ACUTE DISTRESS.
[2022-01-21 06:44] LABS: BASOPHILS % (AUTO) 0.8 % (0.0-2.0); EOSINOPHILS % (AUTO) 7.3 % (0.0-6.0); HEMATOCRIT 28 % (33-45); HEMOGLOBIN 9.4 g/dL (11.5-14.8); LYMPHOCYTES # (AUTO) 1.1 K/uL (0.8-4.8); LYMPHOCYTES % (AUTO) 18.7 % (20.0-44.0); MEAN CORPUSCULAR HGB CONC 33 g/dl (31.0-36.0); MEAN CORPUSCULAR VOLUME 98 fL (82-100); MONOCYTES # (AUTO) 0.6 K/uL (0.1-1.30); MONOCYTES % (AUTO) 11.3 % (2.0-12.0); NEUTROPHILS # (AUTO) 3.5 K/uL (1.8-8.9); NEUTROPHILS % (AUTO) 61.9 % (43.0-81.0); PLATELET COUNT (AUTO) 94 K/uL (150-450); RED BLOOD CELL COUNT(AUTO) 2.89 MIL/uL (4.0-5.2); WHITE BLOOD COUNT (AUTO) 5.7 K/uL (4.3-11.0)
[2022-01-21 07:05] LABS: CALCIUM, SERUM 8.7 mg/dL (8.5-10.1); CREATININE 3.4 mg/dL (0.6-1.3); MAGNESIUM 2.4 mg/dL (1.8-2.4); PHOSPHORUS 3.4 mg/dL (2.5-4.9); POTASSIUM 4.2 mmol/L (3.5-5.1)
[2022-01-21] MEDS: PANTOPRAZOLE 40 MG TABLET.DR PO SCH (07:28)
--- NOTE | 2022-01-21 07:30 | NUR ---
CIGAR ROLLER OPENING NOTES: RECEIVED PATIENT IN BED AWAKE, SAMOAN SPEAKING A/O X 2 AND ABLE TO VERBALIZED NEEDS. NO SOB OR CARDIAC DISTRESS NOTED. ON O2 @2LPM VIA NASAL CANNULA (ON AND OFF) O2 SATURATION 96%. PATIENT SEEN AMBULATORY, GOING TO BATHROOM. ON DEAN OF STUDENT SERVICES W/ CURRENT READING SR @68 BPM. WITH R HAND G20 PATENT, INTACT SALINE LOCKED. R CHEST WALL PERMA CATH FOR HD, INTACT WITH DRY DRESSING. SAFETY PRECAUTIONS: BED LOCKED AND IN LOWEST POSITION, SIDE RAILS UP X 2, CALL LIGHT IN EASY REACH FOR HELP. WILL MONITOR FOR ANY SIGNIFICANT CHANGES.
[2022-01-21 08:52] LABS: LYMPHOCYTES % (MANUAL) 17 % (16-48); MONOCYTES % (MANUAL) 14 % (0-11.0); NEUTROPHILS % (MANUAL) 59 (42-76)
[2022-01-21] MEDS: ASPIRIN 81 MG TAB.CHEW PO SCH (08:52)
[2022-01-21 08:53] LABS: BASOPHILS % (MANUAL) 0 % (0.0-2.0); EOSINOPHILS % (MANUAL) 10 % (0-4)
[2022-01-21] MEDS: METOPROLOL TARTRATE 25 MG TABLET PO SCH ×2 (08:53→16:32)
[2022-01-21] MEDS: BETHANECHOL CHLORIDE (25 MG) 25 MG TABLET PO SCH ×3 (08:53→16:21)
[2022-01-21] MEDS: ATORVASTATIN 10 MG TABLET PO SCH (08:53)
[2022-01-21] MEDS: LACTULOSE 10 G/15 ML UDC (PYXIS) PO SCH ×4 (08:53→20:25)
[2022-01-21] MEDS: LISINOPRIL (10MG) 10 MG TABLET PO SCH (08:54)
[2022-01-21] MEDS: hydrALAZINE HCL 50 MG TABLET PO SCH ×3 (08:54→16:32)
[2022-01-21] MEDS: HEPARIN SODIUM, PORCINE 5000 UNITS/1 ML VIAL SQ SCH ×2 (08:55→20:28)
[2022-01-21] MEDS: SPIRONOLACTONE 25 MG TABLET PO SCH (09:08)
[2022-01-21] MEDS: PROPRANOLOL HCL 10 MG TABLET PO SCH ×2 (09:08→16:31)
[2022-01-21] MEDS: RIFAXIMIN 550 MG TABLET PO SCH ×2 (09:08→16:21)
[2022-01-21] MEDS: CLOTRIMAZOLE 1% 15 GM TUBE TP SCH ×2 (09:18→16:23)
[2022-01-21] MEDS: INSULIN LISPRO/ASPART 100 UNIT/ML CARTRIDGE SQ SCH ×3 (09:23→16:33)
[2022-01-21] MEDS: CEFEPIME 1 GM in IV D5W 50 ML IV SCH (13:17)
--- NOTE | 2022-01-21 16:35 | NUR ---
RN NOTES: PATIENT HAVE 3 BP MEDS AND ONLY GAVE 1 BP MEDS(INDERAL 20MG TAB) BP 114/55, HR 59.
--- NOTE | 2022-01-21 18:41 | NUR ---
SAUTE CHEF CLOSING NOTES: PATIENT IN BED AWAKE, TAMAZIGHT SPEAKING A/O X 2 AND ABLE TO VERBALIZED NEEDS. NO SOB OR CARDIAC DISTRESS NOTED. ON O2 @2LPM VIA NC O2 SATURATION 99%. P ON THEATER USHER W/ CURRENT READING SR @ 64BPM. WITH R HAND G20 PATENT, INTACT SALINE LOCKED. R CHEST WALL PERMA CATH FOR HD, INTACT WITH DRY DRESSING. ALL DUE MEDS GIVEN ORDERED AND TOLERATED WELL. ACCU-CHECKS AND INSULIN GIVEN ORDERED. WOUND CARE DONE. SAFETY PRECAUTIONS: BED LOCKED AND IN LOWEST POSITION, SIDE RAILS UP X 2, CALL LIGHT IN EASY REACH FOR HELP. ENDORSED TO SUSTAINABILITY PURCHASING AGENT NURSE FOR AJAY.
[2022-01-21] MEDS: MEROPENEM 500 MG in IV NS 0.9% 50 ML IV SCH (19:33)
--- NOTE | 2022-01-21 19:35 | NUR ---
TRANS ROUTER OPENING NOTES: RECEIVED PATIENT IN BED AAOX2 CAMEROONIAN SPEAKING.ON 2L VIA NASAL CANNULA INTACT ALISA WELL.NO SIGN SOB/DISTRESS NOTEDIV SITE HAND G20 PATENT AND INTACT SALINE LOCKED. R CHEST WALL PERMA CATH FOR HD, INTACT WITH DRY DRESSING. SAFETY PRECAUTIONS: BED LOCKED AND IN LOWEST POSITION, SIDE RAILS UP X 2, CALL LIGHT IN EASY REACH FOR HELP. WILL CONTINUE TO MONITOR
[2022-01-21] MEDS: INSULIN GLARGINE, 100 UNIT/ML CARTRIDGE SQ SCH (21:16)
[2022-01-22] VITALS: BP 132/66
[2022-01-22 06:07] LABS: BASOPHILS # (AUTO) 0.1 K/uL (0.0-0.2); BASOPHILS % (AUTO) 1.3 % (0.0-2.0); EOSINOPHILS % (AUTO) 8.4 % (0.0-6.0); HEMATOCRIT 30 % (33-45); LYMPHOCYTES # (AUTO) 1.6 K/uL (0.8-4.8); MEAN CORPUSCULAR HGB CONC 33 g/dl (31.0-36.0); MEAN CORPUSCULAR VOLUME 97 fL (82-100); MONOCYTES # (AUTO) 0.7 K/uL (0.1-1.30); MONOCYTES % (AUTO) 11.6 % (2.0-12.0); NEUTROPHILS % (AUTO) 50.7 % (43.0-81.0); PLATELET COUNT (AUTO) 122 K/uL (150-450); WHITE BLOOD COUNT (AUTO) 5.9 K/uL (4.3-11.0)
[2022-01-22 06:13] LABS: CALCIUM, SERUM 8.4 mg/dL (8.5-10.1); CREATININE 4.6 mg/dL (0.6-1.3); MAGNESIUM 2.7 mg/dL (1.8-2.4); PHOSPHORUS 3.6 mg/dL (2.5-4.9); POTASSIUM 4.6 mmol/L (3.5-5.1)
[2022-01-22] MEDS: BLOOD SUGAR DIAGNOSTIC 1 EACH STRIP IN SCH ×4 (06:28→21:44)
--- NOTE | 2022-01-22 06:30 | NUR ---
RN CLOSING NOTES. PATIENT IN BED SLEEPING BUT EASY TO AROUSED.ON O2 @2LPM VIA NC O2 SATURATION 97%.NO SIGN SOB/DISTRESS NOTED.ON ANESTHESIA ASSISTANT W/ CURRENT READING SR 62 BPM. WITH R HAND G20 PATENT, INTACT SALINE LOCKED. R CHEST WALL PERMA CATH FOR HD, INTACT WITH DRY DRESSING. DUE MEDS GIVEN ORDERED.ALL NEEDS ATTENDED. SAFETY PRECAUTIONS INPLACED. BED LOCKED AND LOWEST POSITION, SIDE RAILS UP X 2, CALL LIGHT IN EASY REACH FOR HELP. ENDORSED TO NEXT NURSE.
[2022-01-22] MEDS: PANTOPRAZOLE 40 MG TABLET.DR PO SCH (07:18)
[2022-01-22] MEDS: MEROPENEM 500 MG in IV NS 0.9% 50 ML IV SCH ×2 (07:20→20:16)
--- NOTE | 2022-01-22 07:30 | NUR ---
POSTAL SERVICE CLERK OPENING NOTES: RECEIVED PATIENT IN BED AWAKE, AMERICAN SPEAKING A/O X 2 AND ABLE TO VERBALIZED NEEDS. NO SOB OR CARDIAC DISTRESS NOTED. ON O2 @2LPM VIA NASAL CANNULA (ON AND OFF) O2 SATURATION 99%. PATIENT SEEN AMBULATORY, GOING TO BATHROOM. ON STEWARDESS SUPERVISOR W/ CURRENT READING SB @58 BPM. WITH IV ACCESS ON R HAND G20 PATENT, INTACT SALINE LOCKED. R CHEST WALL PERMA CATH FOR HD, INTACT WITH DRY DRESSING. SAFETY PRECAUTIONS: BED LOCKED AND IN LOWEST POSITION, SIDE RAILS UP X 2, CALL LIGHT IN EASY REACH FOR HELP. WILL MONITOR FOR ANY SIGNIFICANT CHANGES.
[2022-01-22 08:00] VITALS: BP_SYST 139; BP_SYST 151; BP_DIAS 67; BP_DIAS 70
[2022-01-22] MEDS: METOPROLOL TARTRATE 25 MG TABLET PO SCH ×2 (09:00→17:00)
[2022-01-22] MEDS: PROPRANOLOL HCL 10 MG TABLET PO SCH ×2 (09:00→17:00)
[2022-01-22] MEDS: LISINOPRIL (10MG) 10 MG TABLET PO SCH (09:00)
[2022-01-22] MEDS: SPIRONOLACTONE 25 MG TABLET PO SCH (09:00)
[2022-01-22] MEDS: hydrALAZINE HCL 50 MG TABLET PO SCH ×3 (09:00→17:00)
[2022-01-22] MEDS: BETHANECHOL CHLORIDE (25 MG) 25 MG TABLET PO SCH ×3 (09:35→16:53)
[2022-01-22] MEDS: ATORVASTATIN 10 MG TABLET PO SCH (09:35)
[2022-01-22] MEDS: ASPIRIN 81 MG TAB.CHEW PO SCH (09:35)
[2022-01-22] MEDS: RIFAXIMIN 550 MG TABLET PO SCH ×2 (09:35→16:53)
[2022-01-22] MEDS: HEPARIN SODIUM, PORCINE 5000 UNITS/1 ML VIAL SQ SCH ×2 (09:45→20:17)
[2022-01-22] MEDS: CLOTRIMAZOLE 1% 15 GM TUBE TP SCH ×2 (09:51→16:57)
[2022-01-22] MEDS: LACTULOSE 10 G/15 ML UDC (PYXIS) PO SCH ×4 (09:52→20:16)
[2022-01-22] MEDS: INSULIN LISPRO/ASPART 100 UNIT/ML CARTRIDGE SQ SCH ×3 (09:54→17:00)
[2022-01-22 12:00] VITALS: BP 134/64
[2022-01-22] MEDS: INSULIN REGULAR, HUMAN 100 UNIT/ML 3 ML VIAL SQ PRN ×2 (12:06→21:43)
[2022-01-22 16:00] VITALS: BP_SYST 145; BP_SYST 158; BP_DIAS 70; BP_DIAS 79
--- NOTE | 2022-01-22 16:00 | NUR ---
HBsAg + HD machine at bedside for pt to use only until discharge. Nurse general manager [employer] Eva made aware.
--- NOTE | 2022-01-22 18:37 | NUR ---
MS RN CLOSING NOTES: PATIENT IN BED AWAKE, [place] SPEAKING A/O X 2 AND ABLE TO VERBALIZED NEEDS. NO SOB OR CARDIAC DISTRESS NOTED. ON O2 @2LPM VIA NC O2 SATURATION 99%. WITH R HAND G20 PATENT, INTACT SALINE LOCKED. R CHEST WALL PERMA CATH FOR HD, INTACT WITH DRY DRESSING. ALL DUE MEDS GIVEN ORDERED AND TOLERATED WELL. ACCU-CHECKS AND INSULIN GIVEN ORDERED. S/P HD DRAINED 2L.WOUND CARE DONE. SAFETY PRECAUTIONS: BED LOCKED AND IN LOWEST POSITION, SIDE RAILS UP X 2, CALL LIGHT IN EASY REACH FOR HELP. ENDORSED TO BILLPOSTING SUPERVISOR NURSE FOR AJAY.
--- NOTE | 2022-01-22 19:36 | NUR ---
RN NOTES: CHANTELLE (DAUGHTER) AT BED SIDE AND I'M TRYING TO OBTAIN PT'S CONSENT FOR CT ANGIO. CHANTELLE SAID HER MOTHER NEED TO SEE [facility] FIRST BEFORE SIGNING THE CONSENT, PER CHANTELLE IF PULMO WILL APPROVE HER MOTHER TO GET CT ANGIO THEY WILL SIGN CONSENT. PER WILBERT LOCKHART (CHARGE NURSE IS AWARE). ALSO INFORMED PROGRAMMING INSTRUCTOR BERNADINE.
--- NOTE | 2022-01-22 19:56 | NUR ---
RN OPENING NOTES: RECEIVED PATIENT IN BED AAOX2 LITHUANIAN SPEAKING.ON 2L VIA NASAL CANNULA INTACT ALISA WELL.NO SIGN SOB/DISTRESS NOTEDIV SITE HAND G20 PATENT AND INTACT SALINE LOCKED. R CHEST WALL PERMA CATH FOR HD, INTACT WITH DRY DRESSING. SAFETY PRECAUTIONS: BED LOCKED AND IN LOWEST POSITION, SIDE RAILS UP X 2, CALL LIGHT IN EASY REACH FOR HELP. WILL CONTINUE TO MONITOR
[2022-01-22 20:00] VITALS: BP 140/61
[2022-01-22] MEDS: INSULIN GLARGINE, 100 UNIT/ML CARTRIDGE SQ SCH (21:44)
--- NOTE | 2022-01-23 00:15 | NUR ---
RN NOTES I SPOKE TO ANGELINA.Terry TEJADAREGARDING 01/22/22 MORNING LABS,SODIUM LEVEL 129.SHE SAID WAIT FOR AM LABS 01/23.MAYBE PT IS FLUID OVERLOAD.
--- NOTE | 2022-01-23 06:21 | NUR ---
RN CLOSING NOTES. PATIENT IN BED SLEEPING BUT EASY TO AROUSED.ON O2 @2LPM VIA NC O2 SATURATION 98%.NO SIGN SOB/DISTRESS NOTED.WITH R HAND G20 PATENT, INTACT SALINE LOCKED. R CHEST WALL PERMA CATH FOR HD, INTACT WITH DRY DRESSING. DUE MEDS GIVEN ORDERED.ALL NEEDS ATTENDED. SAFETY PRECAUTIONS INPLACED. BED LOCKED AND LOWEST POSITION, SIDE RAILS UP X 2, CALL LIGHT IN EASY REACH FOR HELP. ENDORSED TO NEXT NURSE.
[2022-01-23] MEDS: BLOOD SUGAR DIAGNOSTIC 1 EACH STRIP IN SCH ×4 (06:31→21:50)
[2022-01-23 06:34] LABS: BASOPHILS # (AUTO) 0.1 K/uL (0.0-0.2); BASOPHILS % (AUTO) 2.3 % (0.0-2.0); EOSINOPHILS % (AUTO) 8.3 % (0.0-6.0); HEMATOCRIT 28 % (33-45); HEMOGLOBIN 9.6 g/dL (11.5-14.8); LYMPHOCYTES # (AUTO) 1.3 K/uL (0.8-4.8); LYMPHOCYTES % (AUTO) 23.8 % (20.0-44.0); MEAN CORPUSCULAR HGB CONC 34 g/dl (31.0-36.0); MEAN CORPUSCULAR VOLUME 95 fL (82-100); MONOCYTES # (AUTO) 0.6 K/uL (0.1-1.30); NEUTROPHILS # (AUTO) 2.9 K/uL (1.8-8.9); NEUTROPHILS % (AUTO) 54.6 % (43.0-81.0); PLATELET COUNT (AUTO) 128 K/uL (150-450); RED BLOOD CELL COUNT(AUTO) 2.96 MIL/uL (4.0-5.2); WHITE BLOOD COUNT (AUTO) 5.3 K/uL (4.3-11.0)
[2022-01-23 06:58] LABS: CALCIUM, SERUM 7.8 mg/dL (8.5-10.1); CREATININE 3.3 mg/dL (0.6-1.3); MAGNESIUM 2.3 mg/dL (1.8-2.4); PHOSPHORUS 3.5 mg/dL (2.5-4.9); POTASSIUM 4.4 mmol/L (3.5-5.1)
--- NOTE | 2022-01-23 07:52 | NUR ---
RN OPENING NOTE PATIENT RECEIVED IN BED, AO X 2-3, ABLE TO RESPONDS ALL STIMULI. IN NO ACUTE DISTRESS NOTED. RESPIRATORY EVEN AND UNLABORED ON OXYGEN AT 2 Ls VIA NC. SKIN IS WARM TO TOUCH, KEEP CLEAN/DRY. KEPT ELEVATED HOB FOR ENSURE AIRWAY AND ASPIRATION PRECAUTION, ALSO LOWEST POSITION OF THE BED, S/R UP X 3, BED ALARM IS ON AT ALL THE TIMES. ALL SAFETY PRECAUTION APPLIED. CALL LIGHT WITHIN REACH, WILL CONTINUE TO MONITOR.
[2022-01-23 08:00] VITALS: BP 163/70
[2022-01-23] MEDS: LACTULOSE 10 G/15 ML UDC (PYXIS) PO SCH ×5 (08:23→21:06)
[2022-01-23] MEDS: MEROPENEM 500 MG in IV NS 0.9% 50 ML IV SCH ×2 (08:23→20:01)
[2022-01-23] MEDS: LISINOPRIL (10MG) 10 MG TABLET PO SCH (08:24)
[2022-01-23] MEDS: ATORVASTATIN 10 MG TABLET PO SCH (08:24)
[2022-01-23] MEDS: HEPARIN SODIUM, PORCINE 5000 UNITS/1 ML VIAL SQ SCH ×2 (08:24→21:00)
[2022-01-23] MEDS: PROPRANOLOL HCL 10 MG TABLET PO SCH ×2 (08:27→17:43)
[2022-01-23] MEDS: BETHANECHOL CHLORIDE (25 MG) 25 MG TABLET PO SCH ×3 (08:27→17:43)
[2022-01-23] MEDS: SPIRONOLACTONE 25 MG TABLET PO SCH (08:27)
[2022-01-23] MEDS: METOPROLOL TARTRATE 25 MG TABLET PO SCH ×2 (08:28→17:42)
[2022-01-23] MEDS: PANTOPRAZOLE 40 MG TABLET.DR PO SCH (08:28)
[2022-01-23] MEDS: hydrALAZINE HCL 50 MG TABLET PO SCH ×3 (08:28→17:42)
[2022-01-23] MEDS: RIFAXIMIN 550 MG TABLET PO SCH ×2 (08:30→17:42)
[2022-01-23] MEDS: ASPIRIN 81 MG TAB.CHEW PO SCH (08:30)
[2022-01-23] MEDS: CLOTRIMAZOLE 1% 15 GM TUBE TP SCH ×2 (09:14→17:44)
[2022-01-23] MEDS: INSULIN LISPRO/ASPART 100 UNIT/ML CARTRIDGE SQ SCH ×3 (09:27→18:56)
[2022-01-23] MEDS: INSULIN REGULAR, HUMAN 100 UNIT/ML 3 ML VIAL SQ PRN (12:56)
[2022-01-23 16:00] VITALS: BP 134/66
--- NOTE | 2022-01-23 18:00 | NUR ---
N CLOSING NOTE PATIENT IN BED RESTING. IN NO ACUTE DISTRESS NOTED. RESPIRATORY EVEN AND UNLABORED ON OXYGEN AT 2Ls VIA NC. SKIN IS WARM TO TOUCH, KEEP CLEAN/DRY. KEPT ELEVATED HOB FOR ENSURE AIRWAY AND ASPIRATION PRECAUTION, BED IN LOWEST POSITION AND LOCK. BED ALARM IS ON AT ALL THE TIMES. ALL SAFETY MEASURED IN PLACED. CALL LIGHT WITHIN REACH, WILL ENDORSED TO NEXT SHIFT.
--- NOTE | 2022-01-23 19:30 | NUR ---
MS RN NOTES RECEIVED RESTING COMFORTABLY ON BED A/O X4,SPEAK NAURUAN,SALINE LOCK RIGHT HAND INTACT AND PATENT.AMBULATE WITH ASSIST.WITH LEFT CHEST WALL PERMA CATH FOR HD ACCESS,SCHEDULED ONE FOR TOMORROW.CALL LIGHT IN REACH,NEEDS ANTICIPATED.
[2022-01-23 20:00] VITALS: BP 153/71
[2022-01-23] MEDS: INSULIN GLARGINE, 100 UNIT/ML CARTRIDGE SQ SCH (21:59)
--- NOTE | 2022-01-23 22:00 | NUR ---
MS RN NOTES ACCU-CHECK BLOOD SUGAR CHECK 126,NO HUMULIN R INSULIN COVERAGE,LANTUS 35 UNITS GIVEN ORDERED.PUDDING GIVEN PER PATIENT REQUEST.
--- NOTE | 2022-01-23 23:00 | NUR ---
MS RN NOTES REPORT GIVEN TO OSWALDO LEMUS RN FOR AJAY.
--- NOTE | 2022-01-23 23:05 | NUR ---
MS RN NOTES RECEIVED PATIENT RESTING IN BED; AWAKE, ALERT AND ORIENTED X4. SWISS SPEAKING. BREATHING EVEN AND NONLABORED. WITH IV ACCESS ON RIGHT HAND; PATENT, INTACT AND SALINE LOCKED. WITH LEFT CHEST WALL PERMA CATH FOR HD ACCESS. NEEDS ANTICIPATED. SAFETY MEASURES IMPLEMENTED; CALL LIGHT AND TABLE WITHIN REACH, SIDE RAILS UP X2, BED IN LOWEST LOCKED POSITION. WILL CONTINUE TO MONITOR
[2022-01-24 05:58] LABS: BASOPHILS # (AUTO) 0.1 K/uL (0.0-0.2); BASOPHILS % (AUTO) 2.7 % (0.0-2.0); EOSINOPHILS % (AUTO) 8.7 % (0.0-6.0); HEMATOCRIT 29 % (33-45); HEMOGLOBIN 9.8 g/dL (11.5-14.8); LYMPHOCYTES # (AUTO) 1.4 K/uL (0.8-4.8); LYMPHOCYTES % (AUTO) 27.4 % (20.0-44.0); MEAN CORPUSCULAR HGB CONC 34 g/dl (31.0-36.0); MEAN CORPUSCULAR VOLUME 96 fL (82-100); MONOCYTES # (AUTO) 0.6 K/uL (0.1-1.30); MONOCYTES % (AUTO) 11.7 % (2.0-12.0); NEUTROPHILS # (AUTO) 2.6 K/uL (1.8-8.9); NEUTROPHILS % (AUTO) 49.5 % (43.0-81.0); PLATELET COUNT (AUTO) 133 K/uL (150-450); RED BLOOD CELL COUNT(AUTO) 3.03 MIL/uL (4.0-5.2); WHITE BLOOD COUNT (AUTO) 5.2 K/uL (4.3-11.0)
--- NOTE | 2022-01-24 06:02 | NUR ---
MS RN NOTE BLOOD SUGAR CHECKED: 96 MG/DL; NO INSULIN COVERAGE GIVEN
[2022-01-24] MEDS: BLOOD SUGAR DIAGNOSTIC 1 EACH STRIP IN SCH ×4 (06:09→21:42)
[2022-01-24 06:14] LABS: CALCIUM, SERUM 8.1 mg/dL (8.5-10.1); CREATININE 3.8 mg/dL (0.6-1.3); PHOSPHORUS 4.9 mg/dL (2.5-4.9)
[2022-01-24 06:25] LABS: MAGNESIUM 2.5 mg/dL (1.8-2.4)
--- NOTE | 2022-01-24 07:00 | NUR ---
MS RN OPENING NOTES PATIENT LAYING IN BED, A/O X 2-3, NAURUAN SPEAKING. R HAND # 20 G SL CLEAN, INTACT, AND FLUSHING WELL. L CHEST WALL PERMACATH IN PLACE FOR HD ACCESS. TOLERATING WELL ON ROOM AIR WITH NO S/S RESPIRATORY DISTRESS. SAFETY MEASURES IN PLACE: BED IN LOWEST LOCKED POSITION, SIDE RAILS UP X 2, CALL LIGHT WITHIN REACH. WILL CONTINUE TO MONITOR.
--- NOTE | 2022-01-24 07:02 | NUR ---
MS RN NOTES PATIENT IS RESTING IN BED; A/O X4. TOLERATED ALL TREATMENTS. NEEDS ANTICIPATED AND ATTENDED. SAFETY MEASURES IN PLACE. BED IN LOWEST LOCKED POSITION. ENDORSED TO MORNING SHIFT FOR AJAY.
[2022-01-24] MEDS: PANTOPRAZOLE 40 MG TABLET.DR PO SCH (07:51)
[2022-01-24 08:00] VITALS: BP 193/71
[2022-01-24] MEDS: MEROPENEM 500 MG in IV NS 0.9% 50 ML IV SCH ×2 (08:17→20:34)
[2022-01-24] MEDS: LACTULOSE 10 G/15 ML UDC (PYXIS) PO SCH ×4 (08:18→20:44)
[2022-01-24] MEDS: hydrALAZINE HCL 50 MG TABLET PO SCH ×4 (08:18→17:11)
[2022-01-24] MEDS: ASPIRIN 81 MG TAB.CHEW PO SCH (08:18)
[2022-01-24] MEDS: METOPROLOL TARTRATE 25 MG TABLET PO SCH ×3 (08:19→17:11)
[2022-01-24] MEDS: LISINOPRIL (10MG) 10 MG TABLET PO SCH ×2 (08:19→09:00)
[2022-01-24] MEDS: ATORVASTATIN 10 MG TABLET PO SCH (08:19)
[2022-01-24] MEDS: SPIRONOLACTONE 25 MG TABLET PO SCH (08:19)
[2022-01-24] MEDS: PROPRANOLOL HCL 10 MG TABLET PO SCH ×3 (08:20→17:11)
[2022-01-24] MEDS: RIFAXIMIN 550 MG TABLET PO SCH ×2 (08:20→17:11)
[2022-01-24] MEDS: BETHANECHOL CHLORIDE (25 MG) 25 MG TABLET PO SCH ×3 (08:20→17:11)
[2022-01-24] MEDS: HEPARIN SODIUM, PORCINE 5000 UNITS/1 ML VIAL SQ SCH ×3 (08:21→20:45)
[2022-01-24] MEDS: CLOTRIMAZOLE 1% 15 GM TUBE TP SCH ×2 (08:22→17:12)
[2022-01-24] MEDS: INSULIN LISPRO/ASPART 100 UNIT/ML CARTRIDGE SQ SCH ×3 (08:27→17:00)
--- NOTE | 2022-01-24 09:05 | NUR ---
MS RN NOTES PATIENT ANTIHYPERTENSIVE MEDS AND ANTICOAGULANT HELD THIS AM DUE TO SCHEDULED HEMODIALYSIS TODAY
--- NOTE | 2022-01-24 11:51 | NUR ---
RN NOTES: ENGERIX VACCINATION Received fax report from Lidia ( report placed on pt's chart ) regarding pt Engerix vaccination. Patient received Engerix vaccination current dose received 01/14/2022
[2022-01-24] MEDS: INSULIN REGULAR, HUMAN 100 UNIT/ML 3 ML VIAL SQ PRN ×2 (12:50→21:43)
[2022-01-24 16:00] VITALS: BP 131/65
--- NOTE | 2022-01-24 19:15 | NUR ---
RN opening notes Received Pt in bed sitting comfortably. Pt is alert and orientedX2-3. Pt speaks Tongan and able to make needs known. On room air. No SOB. No S/S of distress noted. R upperchest HD cath is intact, clean and dry. Iv site at R hand# 20 is clean, intact and SL. Safety precautions is maintained. Bed at low position, brakes locked, side rails upX2, hob elevated, bed alarm is on and call light is within reach. Will continue to monitor.
--- NOTE | 2022-01-24 19:21 | NUR ---
MS RN CLOSING NOTES PATIENT LAYING IN BED, A/O X 2-3, NIGERIEN SPEAKING. R HAND # 20 G SL CLEAN, INTACT, AND FLUSHING WELL. L CHEST WALL PERMACATH IN PLACE FOR HD ACCESS. HEMODIALYSIS PERFORMED TODAY WITH 2 L REMOVED. PATIENT TOLERATING WELL ON ROOM AIR WITH NO S/S RESPIRATORY DISTRESS. SAFETY MEASURES IN PLACE: BED IN LOWEST LOCKED POSITION, SIDE RAILS UP X 2, CALL LIGHT WITHIN REACH. ALL NEEDS MET. WILL ENDORSE TO BRASSWIND INSTRUMENT REPAIRER FOR AJAY.
[2022-01-24 20:00] VITALS: BP 143/83
[2022-01-24 20:22] VITALS: BP 143/83
[2022-01-24] MEDS: INSULIN GLARGINE, 100 UNIT/ML CARTRIDGE SQ SCH (21:44)
--- NOTE | 2022-01-24 21:45 | NUR ---
RN notes Held kirsten. Pt blood sugar HS 105. No S/s of distress noted. Will continue to monitor.
[2022-01-25 06:02] LABS: BASOPHILS # (AUTO) 0.1 K/uL (0.0-0.2); BASOPHILS % (AUTO) 2.2 % (0.0-2.0); EOSINOPHILS % (AUTO) 6.7 % (0.0-6.0); HEMATOCRIT 28 % (33-45); HEMOGLOBIN 9.4 g/dL (11.5-14.8); LYMPHOCYTES # (AUTO) 1.3 K/uL (0.8-4.8); LYMPHOCYTES % (AUTO) 23.7 % (20.0-44.0); MEAN CORPUSCULAR HGB CONC 34 g/dl (31.0-36.0); MEAN CORPUSCULAR VOLUME 95 fL (82-100); MONOCYTES # (AUTO) 0.7 K/uL (0.1-1.30); MONOCYTES % (AUTO) 13.6 % (2.0-12.0); NEUTROPHILS # (AUTO) 2.9 K/uL (1.8-8.9); NEUTROPHILS % (AUTO) 53.8 % (43.0-81.0); PLATELET COUNT (AUTO) 133 K/uL (150-450); RED BLOOD CELL COUNT(AUTO) 2.88 MIL/uL (4.0-5.2); WHITE BLOOD COUNT (AUTO) 5.4 K/uL (4.3-11.0)
[2022-01-25 06:30] LABS: CREATININE 3.3 mg/dL (0.6-1.3); MAGNESIUM 2.4 mg/dL (1.8-2.4); PHOSPHORUS 4.6 mg/dL (2.5-4.9); POTASSIUM 5.3 mmol/L (3.5-5.1)
--- NOTE | 2022-01-25 06:40 | NUR ---
RN closing notes Pt is resting in bed comfortably. Pt is alert and orientedX2-3. Pt speaks Czech and able to make needs known. On room air. No SOB. No S/S of distress noted. VS is stable. routine meds were given as ordered. Wound care provided as ordered. R upperchest HD cath is intact, clean and dry. Iv site at R hand# 20 is clean, intact and SL. kept Pt clean, dry and comfortable. Safety precautions is maintained. Bed at low position, brakes locked, side rails upX2, hob elevated, bed alarm is on and call light is within reach. Will endorse to am nurse for AJAY.
--- NOTE | 2022-01-25 07:00 | NUR ---
MS RN OPENING NOTES PATIENT LAYING IN BED, A/O X 2-3, COSTA RICAN SPEAKING. TOLERATING WELL ON ROOM AIR WITH NO S/S RESPIRATORY DISTRESS. NO COMPLAINTS OF PAIN OR DISCOMFORT AT THIS TIME. R HAND # 20 SL CLEAN, INTACT, AND FLUSHING WELL. R UPPER CHEST HD CATH CLEAN, INTACT, AND DRY. SAFETY MEASURES IN PLACE: BED IN LOWEST LOCKED POSITION, SIDE RAILS UP X 2, CALL LIGHT WITHIN REACH. WILL CONTINUE TO MONITOR.
[2022-01-25] MEDS: BLOOD SUGAR DIAGNOSTIC 1 EACH STRIP IN SCH ×4 (07:01→22:06)
[2022-01-25] MEDS: INSULIN REGULAR, HUMAN 100 UNIT/ML 3 ML VIAL SQ PRN ×2 (07:02→22:10)
[2022-01-25 08:00] VITALS: BP 167/71
[2022-01-25] MEDS: INSULIN LISPRO/ASPART 100 UNIT/ML CARTRIDGE SQ SCH ×4 (08:01→17:00)
[2022-01-25] MEDS: PANTOPRAZOLE 40 MG TABLET.DR PO SCH (08:01)
[2022-01-25] MEDS: MEROPENEM 500 MG in IV NS 0.9% 50 ML IV SCH ×2 (08:43→20:27)
[2022-01-25] MEDS: LACTULOSE 10 G/15 ML UDC (PYXIS) PO SCH ×6 (09:00→21:00)
[2022-01-25] MEDS: ASPIRIN 81 MG TAB.CHEW PO SCH (09:09)
[2022-01-25] MEDS: hydrALAZINE HCL 50 MG TABLET PO SCH ×3 (09:09→17:33)
[2022-01-25] MEDS: METOPROLOL TARTRATE 25 MG TABLET PO SCH ×2 (09:10→17:34)
[2022-01-25] MEDS: BETHANECHOL CHLORIDE (25 MG) 25 MG TABLET PO SCH ×3 (09:10→17:34)
[2022-01-25] MEDS: PROPRANOLOL HCL 10 MG TABLET PO SCH ×2 (09:10→17:34)
[2022-01-25] MEDS: SPIRONOLACTONE 25 MG TABLET PO SCH (09:10)
[2022-01-25] MEDS: RIFAXIMIN 550 MG TABLET PO SCH ×2 (09:10→17:34)
[2022-01-25] MEDS: ATORVASTATIN 10 MG TABLET PO SCH (09:11)
[2022-01-25] MEDS: LISINOPRIL (10MG) 10 MG TABLET PO SCH (09:11)
[2022-01-25] MEDS: HEPARIN SODIUM, PORCINE 5000 UNITS/1 ML VIAL SQ SCH ×2 (09:13→20:30)
[2022-01-25] MEDS: CLOTRIMAZOLE 1% 15 GM TUBE TP SCH ×2 (09:13→17:35)
--- NOTE | 2022-01-25 10:56 | NUR ---
PATIENT FOUND ON R/A WITH SAT 98%. PATIENT REMAIN STABLE NO DISTRESS. Addendum: 01/25/22 at 1059 by JACINTO KULKARNI RT Amended: Links added.
[2022-01-25 16:00] VITALS: BP 130/60
--- NOTE | 2022-01-25 19:00 | NUR ---
MS RN CLOSING NOTES PATIENT LAYING IN BED, A/O X 2-3, ANGOLAN SPEAKING. TOLERATING WELL ON ROOM AIR WITH NO S/S RESPIRATORY DISTRESS. NO COMPLAINTS OF PAIN OR DISCOMFORT AT THIS TIME. R HAND # 20 SL CLEAN, INTACT, AND FLUSHING WELL. R UPPER CHEST HD CATH CLEAN, INTACT, AND DRY. SAFETY MEASURES IN PLACE: BED IN LOWEST LOCKED POSITION, SIDE RAILS UP X 2, CALL LIGHT WITHIN REACH. ALL NEEDS MET. WILL ENDORSE TO ELEVATED MOTORMAN FOR AJAY.
[2022-01-25 20:00] VITALS: BP 144/67
--- NOTE | 2022-01-25 21:26 | NUR ---
ms rn notes pt refused lactulose per pt it makes her have to many bowel movements explained to pt that the medication is meant to do that as it draws the extra ammonia out of the body and it is neccessary pt still refused x3 risk and benefit x3 will continue to monitor.
[2022-01-25] MEDS: INSULIN GLARGINE, 100 UNIT/ML CARTRIDGE SQ SCH (22:10)
[2022-01-26] MEDS: BLOOD SUGAR DIAGNOSTIC 1 EACH STRIP IN SCH ×4 (06:55→21:56)
[2022-01-26] MEDS: INSULIN REGULAR, HUMAN 100 UNIT/ML 3 ML VIAL SQ PRN ×3 (06:56→22:01)
--- NOTE | 2022-01-26 07:00 | NUR ---
MS RN OPENING NOTES PATIENT LAYING IN BED, A/O X 2-3, IRISH SPEAKING. TOLERATING WELL ON ROOM AIR WITH NO S/S RESPIRATORY DISTRESS. NO COMPLAINTS OF PAIN OR DISCOMFORT AT THIS TIME. R HAND # 20 SL CLEAN, INTACT, AND FLUSHING WELL. R UPPER CHEST HD CATH CLEAN, INTACT, AND DRY. SAFETY MEASURES IN PLACE: BED IN LOWEST LOCKED POSITION, SIDE RAILS UP X 2, CALL LIGHT WITHIN REACH. WILL CONTINUE TO MONITOR.
--- NOTE | 2022-01-26 07:04 | NUR ---
MS RN CLOSING NOTES PATIENT LAYING IN BED, A/O X 2-3, MONTSERRATIAN SPEAKING. TOLERATING WELL ON ROOM AIR WITH NO S/S RESPIRATORY DISTRESS. NO COMPLAINTS OF PAIN OR DISCOMFORT AT THIS TIME. R HAND # 20 SL CLEAN, INTACT, AND FLUSHING WELL. R UPPER CHEST HD CATH CLEAN, INTACT, AND DRY. SAFETY MEASURES IN PLACE: BED IN LOWEST LOCKED POSITION, SIDE RAILS UP X 2, CALL LIGHT WITHIN REACH. ALL NEEDS MET. WILL ENDORSE CARE TO DAY SHIFT NURSE.
[2022-01-26] MEDS: PANTOPRAZOLE 40 MG TABLET.DR PO SCH (08:15)
[2022-01-26] MEDS: MEROPENEM 500 MG in IV NS 0.9% 50 ML IV SCH ×2 (08:18→20:16)
[2022-01-26] MEDS: LACTULOSE 10 G/15 ML UDC (PYXIS) PO SCH ×5 (08:37→20:54)
[2022-01-26] MEDS: ASPIRIN 81 MG TAB.CHEW PO SCH (08:37)
[2022-01-26] MEDS: RIFAXIMIN 550 MG TABLET PO SCH ×2 (08:38→16:11)
[2022-01-26] MEDS: LISINOPRIL (10MG) 10 MG TABLET PO SCH (08:38)
[2022-01-26] MEDS: PROPRANOLOL HCL 10 MG TABLET PO SCH ×2 (08:38→16:10)
[2022-01-26] MEDS: METOPROLOL TARTRATE 25 MG TABLET PO SCH ×2 (08:38→16:11)
[2022-01-26] MEDS: ATORVASTATIN 10 MG TABLET PO SCH (08:39)
[2022-01-26] MEDS: BETHANECHOL CHLORIDE (25 MG) 25 MG TABLET PO SCH ×3 (08:39→16:11)
[2022-01-26] MEDS: SPIRONOLACTONE 25 MG TABLET PO SCH (08:39)
[2022-01-26] MEDS: hydrALAZINE HCL 50 MG TABLET PO SCH ×3 (08:39→16:11)
[2022-01-26] MEDS: HEPARIN SODIUM, PORCINE 5000 UNITS/1 ML VIAL SQ SCH (08:40)
[2022-01-26] MEDS: INSULIN LISPRO/ASPART 100 UNIT/ML CARTRIDGE SQ SCH ×3 (08:40→16:41)
[2022-01-26] MEDS: CLOTRIMAZOLE 1% 15 GM TUBE TP SCH ×2 (08:41→16:12)
[2022-01-26 16:05] VITALS: BP 156/74
--- NOTE | 2022-01-26 18:48 | NUR ---
MS RN CLOSING NOTES PATIENT LAYING IN BED, A/O X 3, FIJIAN SPEAKING. TOLERATING WELL ON ROOM AIR WITH NO S/S RESPIRATORY DISTRESS. NO COMPLAINTS OF PAIN OR DISCOMFORT AT THIS TIME. R HAND # 20 SL CLEAN, INTACT, AND FLUSHING WELL. R UPPER CHEST HD CATH CLEAN, INTACT, AND DRY. SAFETY MEASURES IN PLACE: BED IN LOWEST LOCKED POSITION, SIDE RAILS UP X 2, CALL LIGHT WITHIN REACH. ALL NEEDS MET. WILL ENDORSE TO BENCH TECHNICIAN FOR AJAY.
--- NOTE | 2022-01-26 19:38 | NUR ---
RT PT WAS FOUND ON ROOM AIR. NO SOB OR RESP DISTRESS NOTED.
--- NOTE | 2022-01-26 19:51 | NUR ---
MS RN OPENING NOTE RECEIVED PATIENT AWAKE IN BED. A/O X 2-3 AND ARMENIAN SPEAKING. STABLE ON ROOM AIR. NO SOB OR S/S OF RESPIRATORY DISTRESS. BREATHING EVEN AND UNLABORED. NO COMPLAINTS OF PAIN OR DISCOMFORT AT THIS TIME. IV ACCESS R HAND # 20 SL, INTACT AND PATENT. WITH R UPPER CHEST HD CATH CLEAN, INTACT, AND DRY. SAFETY PRECAUTIONS IN PLACE. BED IN LOWEST LOCKED POSITION, SIDE RAILS UP X 2, HOB ELEVATED, AND CALL LIGHT AND TABLE WITHIN REACH. ALL NEEDS MET AT THIS TIME.
[2022-01-26 20:00] VITALS: BP 154/71
--- NOTE | 2022-01-26 20:54 | NUR ---
RN NOTE PT REFUSED LACTULOSE AT THIS TIME. STATED SHE HAS BEEN IN THE BATHROOM ALL DAY AND DOES NOT WANT TO TAKE IT UNTIL TOMORROW. HELD MEDICATION PER PATIENT REQUEST.
[2022-01-26] MEDS: INSULIN GLARGINE, 100 UNIT/ML CARTRIDGE SQ SCH (22:03)
[2022-01-27 06:29] LABS: BASOPHILS # (AUTO) 0.1 K/uL (0.0-0.2); EOSINOPHILS % (AUTO) 7.6 % (0.0-6.0); HEMATOCRIT 27 % (33-45); HEMOGLOBIN 9.1 g/dL (11.5-14.8); LYMPHOCYTES # (AUTO) 1.1 K/uL (0.8-4.8); LYMPHOCYTES % (AUTO) 25.7 % (20.0-44.0); MEAN CORPUSCULAR HGB CONC 34 g/dl (31.0-36.0); MEAN CORPUSCULAR VOLUME 97 fL (82-100); MONOCYTES # (AUTO) 0.6 K/uL (0.1-1.30); MONOCYTES % (AUTO) 13.6 % (2.0-12.0); NEUTROPHILS # (AUTO) 2.2 K/uL (1.8-8.9); NEUTROPHILS % (AUTO) 51.1 % (43.0-81.0); PLATELET COUNT (AUTO) 137 K/uL (150-450); RED BLOOD CELL COUNT(AUTO) 2.81 MIL/uL (4.0-5.2); WHITE BLOOD COUNT (AUTO) 4.3 K/uL (4.3-11.0)
[2022-01-27] MEDS: BLOOD SUGAR DIAGNOSTIC 1 EACH STRIP IN SCH ×3 (06:33→16:39)
[2022-01-27 06:42] LABS: CREATININE 4.7 mg/dL (0.6-1.3); MAGNESIUM 2.4 mg/dL (1.8-2.4); PHOSPHORUS 7.2 mg/dL (2.5-4.9)
--- NOTE | 2022-01-27 06:57 | NUR ---
MS RN CLOSING NOTE PATIENT AWAKE IN BED. A/O X 2-3 AND KYRGYZ SPEAKING. STABLE ON ROOM AIR. NO SOB OR S/S OF RESPIRATORY DISTRESS. BREATHING EVEN AND UNLABORED. NO COMPLAINTS OF PAIN OR DISCOMFORT AT THIS TIME. IV ACCESS R HAND # 20 SL, INTACT AND PATENT. WITH R UPPER CHEST HD CATH CLEAN, INTACT, AND DRY. WOUND TREATMENT DONE ORDERED. ALL DUE MEDS GIVEN ORDERED. SAFETY PRECAUTIONS IN PLACE AT ALL TIMES. BED IN LOWEST LOCKED POSITION, SIDE RAILS UP X 2, HOB ELEVATED, AND CALL LIGHT AND TABLE WITHIN REACH. ALL NEEDS MET AT THIS TIME AND WILL ENDORSE TO ONCOMING NURSE FOR AJAY.
--- NOTE | 2022-01-27 07:15 | NUR ---
RN OPENING NOTE RECEIVED PATIENT AWAKE IN BED. A/O X 2-3 AND LEBANESE SPEAKING. STABLE ON ROOM AIR. NO SOB NOTED, BREATHING EVEN AND UNLABORED. NO COMPLAINTS OF PAIN OR DISCOMFORT AT THIS TIME. NOTED WITH IV ACCESS LEFT HAND HAND # 22 SL, INTACT AND PATENT. WITH RIGHT CHESTWALL HD CATH CLEAN, INTACT, AND DRY. SAFETY MEASURE IN PLACE. BED IN LOWEST LOCKED POSITION, SIDE RAILS UP X 2, CALL LIGHT AND TABLE PLACED WITHIN REACH. WILL CONTINUE TO MONITOR PATIENT.
[2022-01-27] MEDS: PANTOPRAZOLE 40 MG TABLET.DR PO SCH (08:19)
[2022-01-27] MEDS: MEROPENEM 500 MG in IV NS 0.9% 50 ML IV SCH (08:19)
[2022-01-27] MEDS: LISINOPRIL (10MG) 10 MG TABLET PO SCH (08:32)
[2022-01-27] MEDS: ASPIRIN 81 MG TAB.CHEW PO SCH (08:32)
[2022-01-27] MEDS: PROPRANOLOL HCL 10 MG TABLET PO SCH ×2 (08:32→16:18)
[2022-01-27] MEDS: SPIRONOLACTONE 25 MG TABLET PO SCH (08:32)
[2022-01-27] MEDS: hydrALAZINE HCL 50 MG TABLET PO SCH ×3 (08:32→16:18)
[2022-01-27] MEDS: ATORVASTATIN 10 MG TABLET PO SCH (08:32)
[2022-01-27] MEDS: BETHANECHOL CHLORIDE (25 MG) 25 MG TABLET PO SCH ×3 (08:32→16:17)
[2022-01-27] MEDS: RIFAXIMIN 550 MG TABLET PO SCH ×2 (08:32→16:18)
[2022-01-27] MEDS: LACTULOSE 10 G/15 ML UDC (PYXIS) PO SCH ×3 (08:33→16:18)
[2022-01-27] MEDS: METOPROLOL TARTRATE 25 MG TABLET PO SCH ×2 (08:33→16:18)
--- NOTE | 2022-01-27 08:35 | NUR ---
RN NOTES ANTIHYPERTENSIVE MEDICATIONS WITHHELD, PATIENT FOR HEMODIALYSIS THIS MORNING.
[2022-01-27 08:42] VITALS: BP 162/63
[2022-01-27] MEDS: INSULIN LISPRO/ASPART 100 UNIT/ML CARTRIDGE SQ SCH ×3 (09:00→16:38)
--- NOTE | 2022-01-27 09:29 | NUR ---
PATIENT FOUND WITH NO O2 IN USE. PATIENT IS AWAKE AND STABLE NO DISTRESS. Addendum: 01/27/22 at 0930 by JACINTO KULKARNI RT Amended: Links added.
[2022-01-27] MEDS: CLOTRIMAZOLE 1% 15 GM TUBE TP SCH ×2 (09:57→16:39)
[2022-01-27] MEDS: INSULIN REGULAR, HUMAN 100 UNIT/ML 3 ML VIAL SQ PRN ×2 (11:43→16:38)
--- NOTE | 2022-01-27 11:50 | NUR ---
RN NOTE PATIENT DONE WITH HEMODIALYSIS. 2 LITER OF FLUID REMOVED, PROCEDURE TOLERATED WELL.
[2022-01-27] MEDS ORDERED: VANCOMYCIN 1 GM in IV D5W 250 ML IV ONE (14:00)
[2022-01-27 16:09] VITALS: BP 167/80
[2022-01-27 16:18] VITALS: BP 167/80
--- NOTE | 2022-01-27 17:35 | NUR ---
FIRE LOOKOUT NOTE PATIENT DISCHARGED HOME IN STABLE CONDITION. PATIENT IS ALERT AND ORIENTED X2-3, VERBALLY RESPONSIVE AND ABLE TO MAKE NEEDS KNOWN. IV ACCESS ON LEFT HAND MAINTAINED, TO CONTINUE IV ANTIBIOTIC X 7 DAYS WITH HD. ARM NAME BAND REMOVED. ALL BELONGINGS ACCOUNTED FOR, FORM SIGNED BY PATIENT'S DAUGHTER KELSIE. EXITCARE FOLDER GIVEN TO DAUGHTER. HEALTH TEACHINGS AND DISCHARGE INSTRUCTIONS GIVEN TO PATIENT AND DAUGHTER WITH VERBALIZATION OF UNDERSTANDING. HOME MEDS PICKED UP FROM PHARMACY GIVEN TO PATIENT AND DAUGHTER. PATIENT LEFT UNIT @1725, CHIMNEY SUPERVISOR BRICK BRADEN [place] ACCOMPANIED PATIENT TO THE LOBBY VIA W/C, PICKED UP VIA PRIVATE CAR. CN AWARE OF DISCHARGE.
[2022-01-28] MEDS ORDERED: VANCOMYCIN 500 MG in IV D5W 100 ML IV PRN (13:00)
== END 2022-01-27 17:25 | disposition home or self-care (01) | DRG 720 ==
LOC: ER 20:45 → TRANSITION 01-19 03:06 → TELE 01-19 07:52 → MED 01-22 11:35
PROVIDERS: ADMIT Registered Nurse; ATTEND Nurse Practitioner Acute Care
PROC: 5A1D70Z Performance of Urinary Filtration, Intermittent, Less than 6 Hours Per Day (ICD-10-PCS; principal; 2022-01-20)
PROC: 0HBNXZZ Excision of Left Foot Skin, External Approach (ICD-10-PCS; 2022-01-20)
PROC: 0HBMXZZ Excision of Right Foot Skin, External Approach (ICD-10-PCS; 2022-01-20)
DX: A41.9 Sepsis, unspecified organism (principal); J96.01 Acute respiratory failure with hypoxia; G92.8 Other toxic encephalopathy; I12.0 Hypertensive chronic kidney disease with stage 5 chronic kidney disease or end stage renal disease; E11.42 Type 2 diabetes mellitus with diabetic polyneuropathy; J15.9 Unspecified bacterial pneumonia; N18.6 End stage renal disease; E11.610 Type 2 diabetes mellitus with diabetic neuropathic arthropathy; D63.1 Anemia in chronic kidney disease; E11.22 Type 2 diabetes mellitus with diabetic chronic kidney disease; E83.9 Disorder of mineral metabolism, unspecified; E11.621 Type 2 diabetes mellitus with foot ulcer; E03.9 Hypothyroidism, unspecified; L03.115 Cellulitis of right lower limb; L03.116 Cellulitis of left lower limb; K74.60 Unspecified cirrhosis of liver; E05.90 Thyrotoxicosis, unspecified without thyrotoxic crisis or storm; N39.0 Urinary tract infection, site not specified; Z99.2 Dependence on renal dialysis; R65.20 Severe sepsis without septic shock; E66.01 Morbid (severe) obesity due to excess calories; Z68.33 Body mass index [BMI] 33.0-33.9, adult; Z79.4 Long term (current) use of insulin; Z79.82 Long term (current) use of aspirin; Z79.84 Long term (current) use of oral hypoglycemic drugs; B96.20 Unspecified Escherichia coli [E. coli] as the cause of diseases classified elsewhere; Z16.12 Extended spectrum beta lactamase (ESBL) resistance; L84 Corns and callosities; M21.40 Flat foot [pes planus] (acquired), unspecified foot; L97.419 Non-pressure chronic ulcer of right heel and midfoot with unspecified severity; I35.0 Nonrheumatic aortic (valve) stenosis; K75.9 Inflammatory liver disease, unspecified
CPT/HCPCS: 36415; 70450-TC; 71045-TC; 73630-TC; 80048-TC; 80053-TC; 80076-TC; 80202-TC; 81001; 82140-TC; 82962-TC; 83605-TC; 83735-TC; 84100-TC; 84132-TC; 84439-TC; 84443-TC; 84484-TC; 85025-TC; 85730-TC; 86706; 87040-TC; 87081-TC; 87086-TC; 87186-TC; 87340; 87350; 90935-TC; 93307-TC; 94799-TC; 97116-TC; 97530-TC; A6403; C9803; G0378; G0480; J0692; J0696; J1644; J1815; J2185; J2405; J3370; J3490; J7030; J7040; J7050; J7060

== ENCOUNTER 2022-02-11 17:04 | Inpatient (IN) | payer OTHER ==
[~2022-02-11] VITALS: Ht 162.6 cm; Wt 81.4 kg
[2022-02-11] MEDS: IV NS 0.9% 500 ML BAG IV ONE ×2 (14:48→17:48)
[~2022-02-11 17:04] MED LIST changes: +HYDR-4077 PO; -LACT10SO58 PO; +LISI10TA29 PO; -METF-442 PO; -ONDA4TAB11 PO; +SPIR25TA6 PO; -SUCR1ORA15 PO
--- NOTE | 2022-02-11 17:06 | NUR ---
[facility] HOURS WHILE ON DIALYSIS BG 91 RARE/ENDANGERED SPECIES SPECIALIST. PT IS A&OX2. ATTACHED OT MONITOR. LEFT SIDED DEFICIET NOTED UPON ADMISSION. PT HAS DIALYSIS PORT ACCESS ON R CHEST. AWAITING MD DIA.
--- NOTE | 2022-02-11 17:18 | NUR ---
IV ESTABLISHED L AC 20G
--- NOTE | 2022-02-11 17:18 | NUR ---
CODE STROKE CALLED
[2022-02-11] MEDS ORDERED: IV NS 0.9% 250 ML IV ONE (17:19)
[2022-02-11] MEDS ORDERED: IOHEXOL-350 100 ML VIAL IV ONE (17:19)
[2022-02-11] MEDS ORDERED: CT SWABBABLE VALVE TRANS SET 1 EA INFUS.SET MC ONE (17:19)
--- NOTE | 2022-02-11 17:21 | NUR ---
PT TAKEN TO CT WITH ACLS PROTOCOL IN PLACE
--- NOTE | 2022-02-11 17:34 | NUR ---
PT RETURNED FORM CT
--- NOTE | 2022-02-11 17:46 | NUR ---
COVID TEST COLLECTED AND SENT
[2022-02-11] MEDS ORDERED: FOLI0.8T23 PO (18:04)
[2022-02-11 18:57] LABS: BASOPHILS % (AUTO) 0.8 % (0.0-2.0); EOSINOPHILS % (AUTO) 8.1 % (0.0-6.0); HEMATOCRIT 34 % (33-45); HEMOGLOBIN 11.3 g/dL (11.5-14.8); LYMPHOCYTES # (AUTO) 0.8 K/uL (0.8-4.8); LYMPHOCYTES % (AUTO) 19.8 % (20.0-44.0); MEAN CORPUSCULAR HGB CONC 33 g/dl (31.0-36.0); MEAN CORPUSCULAR VOLUME 96 fL (82-100); MONOCYTES # (AUTO) 0.6 K/uL (0.1-1.30); MONOCYTES % (AUTO) 15.6 % (2.0-12.0); NEUTROPHILS # (AUTO) 2.2 K/uL (1.8-8.9); NEUTROPHILS % (AUTO) 55.7 % (43.0-81.0); PLATELET COUNT (AUTO) 75 K/uL (150-450); RED BLOOD CELL COUNT(AUTO) 3.57 MIL/uL (4.0-5.2)
[2022-02-11 19:04] LABS: CALCIUM, SERUM 8.4 mg/dL (8.5-10.1); CARBON DIOXIDE 31 mmol/L (21-32); CHLORIDE 100 mmol/L (98-107); CREATININE 3.2 mg/dL (0.6-1.3); GLUCOSE 96 mg/dL (74-106); SODIUM SERUM 137 mmol/L (136-145); UREA NITROGEN, BLOOD 25 mg/dL (7-18)
[2022-02-11 19:10] LABS: ALANINE AMINOTRANSFERASE 26 U/L (12-78); ALBUMIN 2.3 g/dL (3.4-5.0); ALKALINE PHOSPHATASE 185 U/L (46-116); ASPARTATE AMINOTRANSFERASE 47 U/L (15-37); BILIRUBIN,DIRECT 0.3 mg/dL (0.0-0.2); BILIRUBIN,TOTAL 1.1 mg/dL (0.2-1.0); TOTAL PROTEIN, SERUM 7.6 g/dL (6.4-8.2)
--- NOTE | 2022-02-11 19:44 | NUR ---
DR LOJA ON THE PHONE WITH DR TRAN AT [facility]
--- NOTE | 2022-02-11 19:58 | NUR ---
CUSTOMER INSIGHT ANALYST AT PT'S BEDSIDE
[2022-02-11] MEDS ORDERED: TRAMADOL HCL 50 MG TABLET PO PRN (20:30)
--- NOTE | 2022-02-11 20:36 | NUR ---
TERRELL CHEN REVIEW NURSE AT PT'S BEDSIDE
--- NOTE | 2022-02-11 21:52 | NUR ---
REPORT GIVEN TO SHARI MORENO
--- NOTE | 2022-02-11 22:15 | NUR ---
PATIENT TRANSFERRED TO [facility] VIA ACLS
[2022-02-11] MEDS ORDERED: MEROPENEM 500 MG VIAL IV ONE (22:26)
[2022-02-11] MEDS ORDERED: VANCOMYCIN 1 GM VIAL ONE ×2 (22:26→22:28)
[2022-02-11] MEDS ORDERED: MEROPENEM 500 MG in IV NS 0.9% 50 ML IV ONE (22:30)
[2022-02-11] MEDS: BLOOD SUGAR DIAGNOSTIC 1 EACH STRIP IN SCH (22:30)
--- NOTE | 2022-02-11 22:30 | NUR ---
ADMISSION NOTES PATIENT TRANSFERRED IN UNIT AT AROUND 2210, VIA GURNEY, ACCOMPANIED BY 1 ER PERSONNEL. PATIENT SOMNOLENT AT THIS TIME. A/OX2, PORTUGUESE SPEAKING. NO S/S OF APPARENT DISTRESS ON ROOM AIR. DENIES PAIN. NEW ID BAND ON PATIENT. BELONGINGS INVENTORIED AND CHECKED. L. AC @20G INTACT AND PATENT. WILL CALL FAMILY MEMBER FOR ADMISSION QUESTIONS. ADMITTING V/S FOLLOWS: 129/93, T-98.2, SATURATION 99 % ON ROOM AIR. WT- 179.9 LBS. NIHSS SCORE=8 AT THIS TIME. SAFETY IN PLACE. WILL CONTINUE TO MONITOR. Addendum: 02/12/22 at 0229 by ELI PRATT RN ADMISSION NOTES PATIENT TRANSFERRED IN UNIT AT AROUND 2210, VIA GURNEY, ACCOMPANIED BY 1 ER PERSONNEL. PATIENT SOMNOLENT AT THIS TIME. A/OX2, PORTUGUESE SPEAKING. NO S/S OF APPARENT DISTRESS ON 1LPM OF O2 VIA NC. DENIES PAIN. NEW ID BAND ON PATIENT. BELONGINGS INVENTORIED AND CHECKED. L. AC @20G INTACT AND PATENT. WILL CALL FAMILY MEMBER FOR ADMISSION QUESTIONS. ADMITTING V/S FOLLOWS: 129/93, T-98.2, SATURATION 99 %. WT- 179.9 LBS. NIHSS SCORE=8 AT THIS TIME. TELE MONITOR READING SB WITH [address] WILL CONTINUE TO MONITOR.
[2022-02-11 23:00] VITALS: BP 129/93
[2022-02-11] MEDS ORDERED: VANCOMYCIN 1.5 GM in IV D5W 500ml IV ONE (23:00)
--- NOTE | 2022-02-11 23:25 | NUR ---
RAIL CAR REPAIRER NOTE CALLED SON NEXT OF KIN, RACHAEL FISH ([phone]) ABOUT PATIENT. SON WISHES HER MOM TO BE FULL CODE. AND PER SON, PATIENT IS UP TO DATE WITH HER IMMUNIZATIONS INCLUDING COVID, UNKNOWN ABOUT DATE. PER SON, PATIENT LIVES AT HOME WITH HIM AND IS ABLE TO PROVIDE TRANSPORTATION FOR PATIENT WHEN SHE GETS DISCHARGE. MADE SON AWARE OF PATIENT CONDITION AND ABOUT VISITATION HOURS FOR NOW. PATIENT READING SB ON TELE MONITOR WITH 58 BPM. WILL MONITOR.
[2022-02-11 23:52] VITALS: BP 129/93
[2022-02-12] MEDS ORDERED: BLOOD SUGAR DIAGNOSTIC 1 EACH STRIP IN SCH
[2022-02-12 04:00] VITALS: BP 152/76
--- NOTE | 2022-02-12 06:57 | NUR ---
RADIUS CORNER MACHINE OPERATOR NOTE PATIENT MORE ALERT/AWAKE THIS AM. PASSED MY NURSING SWALLOW EVAL. NOW NPO EXCEPT MEDS.
[2022-02-12] MEDS ORDERED: LEVOTHYROXINE SODIUM 100 MCG TABLET PO SCH (07:00)
[2022-02-12] MEDS: BLOOD SUGAR DIAGNOSTIC 1 EACH STRIP IN SCH (07:03)
--- NOTE | 2022-02-12 07:27 | NUR ---
DANCING INSTRUCTOR CLOSING NOTE REPORT GIVEN TO JEANIE FOR CONTINUITY OF CARE. NEEDS ATTENDED.
[2022-02-12 08:00] VITALS: BP 152/72
[2022-02-12] MEDS ORDERED: VANCOMYCIN POST DIALYSIS 500MG IV PRN ×2 (08:30)
[2022-02-12] MEDS ORDERED: MIDODRINE HCL (5MG) 5 MG TABLET PO SCH (08:30)
[2022-02-12] MEDS ORDERED: DEXTROSE 50%-WATER 50 ML DISP.SYRIN IV PRN (08:30)
[2022-02-12] MEDS: VIT B CMPLX 3/FA/VIT C/BIOTIN 1 TAB TABLET PO SCH (09:34)
[2022-02-12] MEDS: RIFAXIMIN 550 MG TABLET PO SCH ×2 (09:34→17:27)
[2022-02-12] MEDS: BETHANECHOL CHLORIDE (25 MG) 25 MG TABLET PO SCH ×3 (09:34→17:26)
[2022-02-12] MEDS: PANTOPRAZOLE 40 MG TABLET.DR PO SCH (09:34)
[2022-02-12 09:42] LABS: EOSINOPHILS % (AUTO) 8.9 % (0.0-6.0); HEMATOCRIT 32 % (33-45); HEMOGLOBIN 10.4 g/dL (11.5-14.8); LYMPHOCYTES # (AUTO) 0.9 K/uL (0.8-4.8); LYMPHOCYTES % (AUTO) 26.9 % (20.0-44.0); MEAN CORPUSCULAR HGB CONC 33 g/dl (31.0-36.0); MEAN CORPUSCULAR VOLUME 97 fL (82-100); MONOCYTES # (AUTO) 0.3 K/uL (0.1-1.30); MONOCYTES % (AUTO) 10.3 % (2.0-12.0); NEUTROPHILS # (AUTO) 1.7 K/uL (1.8-8.9); NEUTROPHILS % (AUTO) 52.9 % (43.0-81.0); PLATELET COUNT (AUTO) 74 K/uL (150-450); RED BLOOD CELL COUNT(AUTO) 3.24 MIL/uL (4.0-5.2); WHITE BLOOD COUNT (AUTO) 3.3 K/uL (4.3-11.0)
[2022-02-12 10:01] LABS: CALCIUM, SERUM 8.5 mg/dL (8.5-10.1); CREATININE 3.7 mg/dL (0.6-1.3); POTASSIUM 3.9 mmol/L (3.5-5.1)
[2022-02-12 10:11] LABS: CHOLESTEROL 194 mg/dL (<200); HDL CHOLESTEROL 90 mg/dL (40-60); LDL 82 mg/dL (0-99); TRIGLYCERIDES 99 mg/dL (30-150)
[2022-02-12 10:14] LABS: ALBUMIN 2.2 g/dL (3.4-5.0); TOTAL PROTEIN, SERUM 7.2 g/dL (6.4-8.2)
[2022-02-12] MEDS ORDERED: MEROPENEM 1 G in IV NS 0.9% 100 ML IV SCH (10:30)
[2022-02-12] MEDS: SPIRONOLACTONE 25 MG TABLET PO SCH (10:43)
[2022-02-12] MEDS: METOPROLOL TARTRATE 25 MG TABLET PO SCH ×2 (10:43→17:27)
[2022-02-12] MEDS: LACTULOSE 10 G/15 ML UDC (PYXIS) PO SCH ×4 (10:44→21:59)
[2022-02-12] MEDS: LISINOPRIL (10MG) 10 MG TABLET PO SCH ×2 (10:44→17:26)
[2022-02-12 10:47] LABS: THYROID STIMULATING HORMONE 50.171 uIU/mL (0.358-3.74)
[2022-02-12 11:00] LABS: D-DIMER 5.95 mg/L(FEU (0.17-0.50)
[2022-02-12] MEDS: BLOOD SUGAR DIAGNOSTIC 1 EACH STRIP VI SCH ×4 (11:25→22:00)
[2022-02-12] MEDS: MEROPENEM 500 MG in IV NS 0.9% 50 ML IV SCH ×2 (11:30→22:00)
[2022-02-12] MEDS: INSULIN REGULAR, HUMAN 100 UNIT/ML 3 ML VIAL SQ PRN (12:08)
[2022-02-12 12:33] LABS: BASOPHILS % (MANUAL) 0 % (0.0-2.0); EOSINOPHILS % (MANUAL) 7 % (0-4); LYMPHOCYTES % (MANUAL) 27 % (16-48); MONOCYTES % (MANUAL) 10 % (0-11.0); NEUTROPHILS % (MANUAL) 56 (42-76)
--- NOTE | 2022-02-12 13:00 | NUR ---
RN NOTE SCHEDULED 1300 DOSE OF LACTULOSE AND URECHOLINE HELD DUE TO SCHEDULED HEMODIALYSIS SESSION AT PATIENT BEDSIDE.
[2022-02-12 16:00] VITALS: BP 128/56
[2022-02-12] MEDS: ATORVASTATIN 10 MG TABLET PO SCH (17:27)
--- NOTE | 2022-02-12 19:27 | NUR ---
SOLAR/RENEWABLE ENERGY SALES CLOSING NOTE PATIENT RECEIVED AWAKE AND LAYING IN BED. A/O 2-3 WITH SOME CONFUSION. NO S/SX OF DISTRESS OR PAIN REPORTED OR OBSERVED ON SHIFT. SWALLOW EVAL PERFORMED ON SHIFT AND PATIENT WAS ABLE TO SWALLOW FOODS SUCCESSFULLY. DIET ADVANCED FROM FROM NPO TO CCHO. TOLERATED ALL MEALS WELL WITH NO S/SX OF ASPIRATION. IV ACCES TO RAC INTACT AND PATENT. BG LEVELS ON SHIFT WERE 160 (2UNITS GIVEN) & 116 (0UNITS). HEMODIALYSIS COMPLETED WITH 2LITERS OF FLUID TAKEN OFF. TOLERATED TREATMENT WELL. MRI OF RIGHT FOOT RESCHEDULED FOR 02/13 PATIENT WAS RECEIVING HEMODIALYSIS WHEN SUPERVISOR RIDE ASSEMBLY CAME TO PICK HER UP. ENDORSED TO ONCOMING NURSE. PATIENT ALERT AND RESPONSE LEVEL SHOWED TO INCREASE THROUGHOUT SHIFT. SAFETY MEASURES REMAIN INTACT WITH BED IN LOWEST POSITION AND LOCKED . SIDERAIL UP X2 WITH CALL LIGHT WITHIN REACH. HOB ELEVATED. WILL CONTINUE TO MONITOR.
--- NOTE | 2022-02-12 19:30 | NUR ---
CENTER LINE CUTTER OPERATOR NOTES RECEIVED ON BED A/O X4,SPEAK MOHAWK,BREATHING REGULAR,NOT IN ANY FORM OF DISTRESS,WITH SALINE RIGHT AC INTACT AND PATENT,RIGHT CHEST WALL PERMA CATH FOR HD ACCESS,HAD ONE TODAY,2 LITERS OUT.NO COMPLAINTS AT THE MOMENT,AMBULATE WITH ASSIST,CALL LIGHT IN REACH,NEEDS ANTICIPATED.
[2022-02-12 20:00] VITALS: BP_SYST 131; BP_DIAS 74; BP_DIAS 79
--- NOTE | 2022-02-12 22:00 | NUR ---
PRESCHOOL TEACHER'S ASSISTANT NOTES ACCU-CHECK BLOOD SUGAR CHECK 151,COVERED WITH HUMULIN R 2 UNITS PER SLIDING SCALE,ALONG WITH LANTUS 35UNITS SCHEDULED..SNACKS PROVIDED AT BEDSIDE.
[2022-02-12] MEDS: *INSULIN REGULAR(HUMULIN R)HUM 100 UNIT/ML VIAL SQ PRN (22:14)
[2022-02-12] MEDS: INSULIN GLARGINE, 100 UNIT/ML CARTRIDGE SQ SCH (22:15)
--- NOTE | 2022-02-12 23:00 | NUR ---
WEBSPHERE CONSULTANT NOTES IV SITE BULGED WHEN FLUSHED,NEW SALINE LOCK PLACE ON LEFT FOREARM #22,IV ABX INFUSING THIS TIME.
[2022-02-13] VITALS: BP 151/70
[2022-02-13] MEDS: INSULIN REGULAR, HUMAN 100 UNIT/ML 3 ML VIAL SQ PRN (07:42)
[2022-02-13 08:00] VITALS: BP 171/80
[2022-02-13 08:22] LABS: CALCIUM, SERUM 8.1 mg/dL (8.5-10.1); CREATININE 3.9 mg/dL (0.6-1.3); MAGNESIUM 2.3 mg/dL (1.8-2.4); PHOSPHORUS 5.7 mg/dL (2.5-4.9); POTASSIUM 3.8 mmol/L (3.5-5.1)
[2022-02-13 08:25] LABS: BASOPHILS % (AUTO) 0.7 % (0.0-2.0); EOSINOPHILS % (AUTO) 9.7 % (0.0-6.0); HEMATOCRIT 30 % (33-45); LYMPHOCYTES # (AUTO) 1.3 K/uL (0.8-4.8); LYMPHOCYTES % (AUTO) 32.7 % (20.0-44.0); MEAN CORPUSCULAR HGB CONC 34 g/dl (31.0-36.0); MEAN CORPUSCULAR VOLUME 97 fL (82-100); MONOCYTES # (AUTO) 0.5 K/uL (0.1-1.30); MONOCYTES % (AUTO) 11.3 % (2.0-12.0); NEUTROPHILS # (AUTO) 1.9 K/uL (1.8-8.9); NEUTROPHILS % (AUTO) 45.6 % (43.0-81.0); PLATELET COUNT (AUTO) 83 K/uL (150-450); RED BLOOD CELL COUNT(AUTO) 3.06 MIL/uL (4.0-5.2); WHITE BLOOD COUNT (AUTO) 4.1 K/uL (4.3-11.0)
[2022-02-13] MEDS: RIFAXIMIN 550 MG TABLET PO SCH ×2 (09:20→17:00)
[2022-02-13] MEDS: VIT B CMPLX 3/FA/VIT C/BIOTIN 1 TAB TABLET PO SCH (09:20)
[2022-02-13] MEDS: PANTOPRAZOLE 40 MG TABLET.DR PO SCH (09:21)
[2022-02-13] MEDS: LACTULOSE 10 G/15 ML UDC (PYXIS) PO SCH ×4 (09:21→22:06)
[2022-02-13] MEDS: BLOOD SUGAR DIAGNOSTIC 1 EACH STRIP VI SCH ×4 (09:21→22:55)
[2022-02-13] MEDS: BETHANECHOL CHLORIDE (25 MG) 25 MG TABLET PO SCH ×3 (09:21→17:00)
[2022-02-13] MEDS: SPIRONOLACTONE 25 MG TABLET PO SCH (09:22)
[2022-02-13] MEDS: LISINOPRIL (10MG) 10 MG TABLET PO SCH ×2 (09:22→17:00)
[2022-02-13] MEDS: METOPROLOL TARTRATE 25 MG TABLET PO SCH ×2 (09:22→17:00)
[2022-02-13] MEDS: MEROPENEM 500 MG in IV NS 0.9% 50 ML IV SCH ×2 (09:33→22:05)
[2022-02-13] MEDS ORDERED: LEVOTHYROXINE INJ 100 MCG VIAL IV ONE (11:00)
[2022-02-13 12:00] VITALS: BP 134/67
[2022-02-13 16:00] VITALS: BP 188/86
[2022-02-13] MEDS: ATORVASTATIN 10 MG TABLET PO SCH (18:00)
--- NOTE | 2022-02-13 19:00 | NUR ---
GOLF BALL MARKER CLOSING NOTE PATIENT RECEIVED AWAKE AND LAYING IN BED. A/O 2-3 WITH SOME CONFUSION, HOWEVER MORE COHERENT THAN PREVIOUS DAY. NO S/SX OF DISTRESS OR PAIN REPORTED OR OBSERVED ON SHIFT. IV ACCESS TO LFA INTACT AND PATENT. BG LEVELS ON SHIFT WERE 127 & 128 . NO COVERAGE NEEDED PER SLIDING SCALE. HEMODIALYSIS COMPLETED WITH 2 LITERS OF FLUID TAKEN OFF. TOLERATED TREATMENT WELL. 1700 MEDICATIONS NOT GIVEN PER DIALYSIS NURSE DUE TO SCHEDULED DIALYSIS AT TIME OF MEDICATIONS. SCHEDULED MRI OF RIGHT FOOT AND BRAIN COMPLETED ON SHIFT. SEE NOTES FOR RESULTS. PATIENT ALERT AND RESPONSE LEVEL SHOWED TO INCREASE THROUGHOUT SHIFT. SAFETY MEASURES REMAIN INTACT WITH BED IN LOWEST POSITION AND LOCKED . SIDERAIL UP X2 WITH CALL LIGHT WITHIN REACH. HOB ELEVATED. WILL CONTINUE TO MONITOR.
--- NOTE | 2022-02-13 19:20 | NUR ---
COMMUNICATION PROFESSOR OPENING NOTE RECEIVED PATIENT IN BED; AWAKE, ALERT AND ORIENTED X3. SERBIAN SPEAKING. BREATHING EVEN AND NONLABORED. ON ROOM AIR; WELL TOLERATED. NOT IN ANY FORM OF DISTRESS. WITH IV ACCESS ON LEFT FOREARM 22G; PATENT, INTACT AND SALINE LOCKED. WITH RIGHT CHEST WALL PERMA CATH FOR HD ACCESS, POST HEMODIALYSIS TODAY, 2 LITERS OUT. ON TELEMETRY MONITORING WITH READING OF SR HR-62 BPM. ABLE TO MAKE NEEDS KNOWN. SAFETY MEASURES IMPLEMENTED: CALL LIGHT AND TABLE WITHIN REACH, SIDE RAILS UP X2, HEAD OF BED ELEVATED, BED IN LOWEST LOCKED POSITION. WILL CONTINUE TO MONITOR.
[2022-02-13 20:00] VITALS: BP 142/63
[2022-02-13 22:23] LABS: BAND % (MANUAL) 1 % (0.0-5.0); EOSINOPHILS % (MANUAL) 11 % (0-4); LYMPHOCYTES % (MANUAL) 23 % (16-48); MONOCYTES % (MANUAL) 10 % (0-11.0); NEUTROPHILS % (MANUAL) 55 (42-76)
--- NOTE | 2022-02-13 22:51 | NUR ---
RN NOTE BLOOD SUGAR CHECKED - 154 MG/DL; 2U OF INSULIN GIVEN PER SQ PER SLIDING SCALE.
[2022-02-13] MEDS: *INSULIN REGULAR(HUMULIN R)HUM 100 UNIT/ML VIAL SQ PRN (23:03)
[2022-02-13] MEDS: INSULIN GLARGINE, 100 UNIT/ML CARTRIDGE SQ SCH (23:06)
[2022-02-14] VITALS (7 sets, daily range): BP systolic 135–166; BP diastolic 62–75
[2022-02-14] MEDS: BLOOD SUGAR DIAGNOSTIC 1 EACH STRIP VI SCH ×4 (06:12→21:40)
--- NOTE | 2022-02-14 06:15 | NUR ---
RN NOTE BS CHECKED - 92 MG/DL; NO INSULIN COVERAGE GIVEN.
[2022-02-14 06:46] LABS: CALCIUM, SERUM 8.5 mg/dL (8.5-10.1); CREATININE 3.4 mg/dL (0.6-1.3); POTASSIUM 3.9 mmol/L (3.5-5.1)
--- NOTE | 2022-02-14 06:50 | NUR ---
ABRASIVE WATER JET CUTTER OPERATOR CLOSING NOTE PATIENT RESTING IN BED; AWAKE, A/O X3. RESPIRATIONS EVEN AND NONLABORED. NO SOB NOTED. IN NO ACUTE DISTRESS. STABLE ON ROOM AIR. ON TELEMETRY MONITORING WITH READING OF SR HR-62 BPM. ABLE TO MAKE NEEDS KNOWN. LFA 22G; PATENT, INTACT AND SALINE LOCKED. ALL NEEDS RENDERED. SAFETY PRECAUTIONS MAINTAINED: HEAD OF BED ELEVATED, CALL LIGHT AND TABLE WITHIN REACH, SIDE RAILS UP X2, BED IN LOWEST LOCKED POSITION. ENDORSED TO MORNING SHIFT FOR CONTINUITY OF CARE.
--- NOTE | 2022-02-14 07:00 | NUR ---
OXIDIZED FINISH PLATER OPENING NOTES PATIENT LAYING IN BED, A/O X 3, ABLE TO MAKE NEEDS KNOWN. TOLERATING WELL ON ROOM AIR WITH NO S/S RESPIRATORY DISTRESS. NO COMPLAINTS OF PAIN OR DISCOMFORT AT THIS TIME. TELE MONITOR IN PLACE READING SR 62. L FA # 22 G SL CLEAN, INTACT, AND FLUSHING WELL. SAFETY MEASURES IN PLACE: BED IN LOWEST LOCKED POSITION, SIDE RAILS UP X 2, CALL LIGHT WITHIN REACH. WILL CONTINUE TO MONITOR.
[2022-02-14] MEDS ORDERED: LEVOTHYROXINE INJ 100 MCG VIAL IV SCH (07:30)
[2022-02-14] MEDS: VIT B CMPLX 3/FA/VIT C/BIOTIN 1 TAB TABLET PO SCH (08:16)
[2022-02-14] MEDS: RIFAXIMIN 550 MG TABLET PO SCH ×2 (08:17→16:16)
[2022-02-14] MEDS: PANTOPRAZOLE 40 MG TABLET.DR PO SCH (08:17)
[2022-02-14] MEDS: METOPROLOL TARTRATE 25 MG TABLET PO SCH ×2 (08:17→16:16)
[2022-02-14] MEDS: SPIRONOLACTONE 25 MG TABLET PO SCH (08:17)
[2022-02-14] MEDS: BETHANECHOL CHLORIDE (25 MG) 25 MG TABLET PO SCH ×3 (08:17→16:16)
[2022-02-14] MEDS: LISINOPRIL (10MG) 10 MG TABLET PO SCH ×2 (08:18→16:16)
[2022-02-14] MEDS: LACTULOSE 10 G/15 ML UDC (PYXIS) PO SCH ×4 (08:19→21:41)
--- NOTE | 2022-02-14 09:00 | NUR ---
WOUND CARE CONSULT: PT PRESENTS WITH DRY WOUND TO RT PLANTAR FOOT, PRESENT ON ADMISSION. DR GOLDMAN NOTIFIED OF DPM CONSULT REQUEST. IN AGREEMENT WITH PLAN OF CARE.
[2022-02-14] MEDS: MEROPENEM 500 MG in IV NS 0.9% 50 ML IV SCH (09:16)
[2022-02-14] MEDS: INSULIN REGULAR, HUMAN 100 UNIT/ML 3 ML VIAL SQ PRN ×2 (12:48→21:45)
[2022-02-14] MEDS: ATORVASTATIN 10 MG TABLET PO SCH (17:13)
--- NOTE | 2022-02-14 19:00 | NUR ---
EXPENSE CLERK CLOSING NOTE PATIENT LAYING IN BED, A/O X 3, ABLE TO MAKE NEEDS KNOWN. TOLERATING WELL ON ROOM AIR WITH NO S/S RESPIRATORY DISTRESS. NO COMPLAINTS OF PAIN OR DISCOMFORT AT THIS TIME. TELE MONITOR IN PLACE READING SR. L FA # 22 G SL CLEAN, INTACT, AND FLUSHING WELL. SAFETY MEASURES IN PLACE: BED IN LOWEST LOCKED POSITION, SIDE RAILS UP X 2, CALL LIGHT WITHIN REACH. ALL NEEDS MET. WILL ENDORSE TO STRATEGIC PARTNERSHIP REPRESENTATIVE FOR AJAY.
--- NOTE | 2022-02-14 19:34 | NUR ---
RN OPENING NOTE PATIENT AWAKE IN BED. A/OX2. NO S/S OF DISTRESS, BREATHING W/O DIFFICULTY ON ROOM AIR. LFA #22 SL INTACT AND PATENT. TELE READS SR 69. SAFETY MEASURES IN PLACE: BED LOCKED IN PLACE AND AT LOWEST LEVEL, RAILS UP X2, CALL WILLETT WITHIN REACH. WILL CONTINUE TO MONITOR PATIENT.
[2022-02-14] MEDS: INSULIN GLARGINE, 100 UNIT/ML CARTRIDGE SQ SCH (21:45)
[2022-02-15 00:49] VITALS: BP 156/81
[2022-02-15 04:55] VITALS: BP 140/67
--- NOTE | 2022-02-15 06:56 | NUR ---
RN CLOSING NOTE PATIENT ASLEEP IN BED. A/OX2. NO S/S OF DISTRESS, BREATHING W/O DIFFICULTY ON ROOM AIR. LFA #22 SL INTACT AND PATENT. TELE READS SR 65. SAFETY MEASURES IN PLACE: BED LOCKED AND AT LOWEST POSITION, RAILS UP X2, CALL WILLETT WITHIN REACH. WILL ENDORSE TO NEXT SHIFT FOR AJAY.
[2022-02-15] MEDS: BLOOD SUGAR DIAGNOSTIC 1 EACH STRIP VI SCH (07:03)
[2022-02-15] MEDS: INSULIN REGULAR, HUMAN 100 UNIT/ML 3 ML VIAL SQ PRN (07:03)
[2022-02-15] MEDS ORDERED: LEVOTHYROXINE SODIUM 137 MCG TABLET PO SCH (07:30)
[2022-02-15 08:00] VITALS: BP 154/71
[2022-02-15] MEDS ORDERED: LEVO100T9 PO (08:19)
[2022-02-15] MEDS: LACTULOSE 10 G/15 ML UDC (PYXIS) PO SCH ×2 (09:00→13:00)
[2022-02-15] MEDS ORDERED: CLOTRIMAZOLE 1% 15 GM TUBE TP SCH (09:00)
[2022-02-15] MEDS: RIFAXIMIN 550 MG TABLET PO SCH (09:46)
[2022-02-15] MEDS: VIT B CMPLX 3/FA/VIT C/BIOTIN 1 TAB TABLET PO SCH (09:46)
[2022-02-15] MEDS: METOPROLOL TARTRATE 25 MG TABLET PO SCH (09:46)
[2022-02-15] MEDS: LISINOPRIL (10MG) 10 MG TABLET PO SCH (09:46)
[2022-02-15] MEDS: PANTOPRAZOLE 40 MG TABLET.DR PO SCH (09:46)
[2022-02-15] MEDS: SPIRONOLACTONE 25 MG TABLET PO SCH (09:46)
[2022-02-15] MEDS: BETHANECHOL CHLORIDE (25 MG) 25 MG TABLET PO SCH (09:47)
[2022-02-15 12:00] VITALS: BP 141/74
== END 2022-02-15 15:20 | disposition home or self-care (01) | DRG 279 ==
LOC: ER 17:07 → TELE 21:52
PROVIDERS: ADMIT Nurse Practitioner Acute Care; ATTEND Internal Medicine
PROC: 5A1D70Z Performance of Urinary Filtration, Intermittent, Less than 6 Hours Per Day (ICD-10-PCS; principal; 2022-02-12)
DX: K72.90 Hepatic failure, unspecified without coma (principal); G92.8 Other toxic encephalopathy; I12.0 Hypertensive chronic kidney disease with stage 5 chronic kidney disease or end stage renal disease; E44.0 Moderate protein-calorie malnutrition; E72.20 Disorder of urea cycle metabolism, unspecified; E11.22 Type 2 diabetes mellitus with diabetic chronic kidney disease; E88.09 Other disorders of plasma-protein metabolism, not elsewhere classified; N18.6 End stage renal disease; K76.6 Portal hypertension; B35.1 Tinea unguium; E11.42 Type 2 diabetes mellitus with diabetic polyneuropathy; E11.610 Type 2 diabetes mellitus with diabetic neuropathic arthropathy; L97.519 Non-pressure chronic ulcer of other part of right foot with unspecified severity; K74.60 Unspecified cirrhosis of liver; E03.9 Hypothyroidism, unspecified; Z20.822 Contact with and (suspected) exposure to COVID-19; E11.621 Type 2 diabetes mellitus with foot ulcer; E78.5 Hyperlipidemia, unspecified; Z88.0 Allergy status to penicillin; Z79.899 Other long term (current) drug therapy; Z79.4 Long term (current) use of insulin; Z99.2 Dependence on renal dialysis; M89.8X9 Other specified disorders of bone, unspecified site; Z87.440 Personal history of urinary (tract) infections; I35.0 Nonrheumatic aortic (valve) stenosis; J98.11 Atelectasis; K80.20 Calculus of gallbladder without cholecystitis without obstruction; M19.071 Primary osteoarthritis, right ankle and foot
CPT/HCPCS: 36415; 70450-TC; 70496-TC; 70498-TC; 70551-TC; 71045-TC; 73718-TC; 76700-TC; 80048-TC; 80053-TC; 80061-TC; 80076-TC; 80202-TC; 82140-TC; 82962-TC; 83735-TC; 84100-TC; 84439-TC; 84443-TC; 84481; 84484-TC; 85025-TC; 85396; 85730-TC; 86706; 87040-TC; 87081-TC; 87340; 90935-TC; 92526; 92611-TC; 97116-TC; 97530-TC; C9803; G0378; J1815; J2185; J3370; J7030; J7040; J7050; J7060; Q9967

== ENCOUNTER 2022-03-13 21:49 | Inpatient (IN) | payer OTHER ==
[~2022-03-13] VITALS: Ht 160 cm; Wt 68.0 kg
[~2022-03-13 21:49] MED LIST changes: -ASPI-1169 PO; +FOLI0.8T23 PO; -HYDR-4077 PO
--- NOTE | 2022-03-13 22:00 | NUR ---
. TO ER BED 6. [id number]. FROM HOME S/P DIALYSIS MORE ALTERED THAT USUAL. PT IS ALERT TO NAME AND PLACE. RR EVEN AND NON LABORED. CONNECTED TO MONITOR. DIALYSIS PORT ON R CHEST. DIALYSIS ON THU, , AND SAT. PT IS UP TO DATE WITH DIALYSIS. SAFETY PRECAUTIONS IN PLACE. AWAITING MD DIA
--- NOTE | 2022-03-13 22:34 | NUR ---
COVID SWAB COLLECTED AND SENT TO LAB
--- NOTE | 2022-03-13 23:02 | NUR ---
BLOOD COLLECTED AND SENT TO LAB
--- NOTE | 2022-03-13 23:02 | NUR ---
IV LINE ESTABLISHED, RHAND 20G
[2022-03-14 00:27] LABS: SERUM AMMONIA 119 umol/L (11-32)
[2022-03-14 00:30] LABS: CALCIUM, SERUM 8.7 mg/dL (8.5-10.1); CARBON DIOXIDE 32 mmol/L (21-32); CHLORIDE 100 mmol/L (98-107); CREATININE 3.8 mg/dL (0.6-1.3); GLUCOSE 119 mg/dL (74-106); POTASSIUM 4.6 mmol/L (3.5-5.1); SODIUM SERUM 136 mmol/L (136-145); UREA NITROGEN, BLOOD 26 mg/dL (7-18)
[2022-03-14 00:40] LABS: ALANINE AMINOTRANSFERASE 34 U/L (12-78); ALBUMIN 2.7 g/dL (3.4-5.0); ALKALINE PHOSPHATASE 193 U/L (46-116); ASPARTATE AMINOTRANSFERASE 50 U/L (15-37); BILIRUBIN,DIRECT 0.3 mg/dL (0.0-0.2); BILIRUBIN,TOTAL 0.9 mg/dL (0.2-1.0); TOTAL PROTEIN, SERUM 7.7 g/dL (6.4-8.2)
[2022-03-14 00:40] LABS: BASOPHILS % (AUTO) 0.7 % (0.0-2.0); EOSINOPHILS % (AUTO) 4.4 % (0.0-6.0); HEMATOCRIT 35 % (33-45); HEMOGLOBIN 11.5 g/dL (11.5-14.8); LYMPHOCYTES # (AUTO) 1.1 K/uL (0.8-4.8); MEAN CORPUSCULAR HGB CONC 33 g/dl (31.0-36.0); MEAN CORPUSCULAR VOLUME 96 fL (82-100); MONOCYTES # (AUTO) 0.6 K/uL (0.1-1.30); MONOCYTES % (AUTO) 12.2 % (2.0-12.0); NEUTROPHILS # (AUTO) 2.6 K/uL (1.8-8.9); NEUTROPHILS % (AUTO) 57.7 % (43.0-81.0); PLATELET COUNT (AUTO) 71 K/uL (150-450); RED BLOOD CELL COUNT(AUTO) 3.67 MIL/uL (4.0-5.2); WHITE BLOOD COUNT (AUTO) 4.5 K/uL (4.3-11.0)
[2022-03-14 00:42] LABS: ALCOHOL, BLOOD < 3 mg/dL (0-0)
[2022-03-14] MEDS ORDERED: LACTULOSE 10 G/15 ML UDC (PYXIS) ONE (00:49)
[2022-03-14] MEDS ORDERED: LACTULOSE 10 G/15 ML UDC (PYXIS) PR ONE (01:00)
[2022-03-14 02:54] LABS: BILIRUBIN,URINE NEGATIVE (NEGATIVE); COLOR,URINE YELLOW (YELLOW); LEUKOCYTE ESTERASE ,URINE NEGATIVE (NEGATIVE); NITRITE, URINE NEGATIVE (NEGATIVE); PROTEIN,URINE >=300 mg/dl (NEGATIVE); UGLUCOSE 100 MG/DL mg/dL (NEGATIVE); UROBILINOGEN,URINE 0.2 EU/dL (0.2)
[2022-03-14 03:03] LABS: BACTERIA,URINE Rare /HPF (None Seen); RBC,URINE 0-2 /HPF (0-2); SQUAMOUS EPITHELIAL CELL,UR Few /HPF (None Seen); WBC,URINE 0-2 /HPF (0-3)
--- NOTE | 2022-03-14 03:25 | NUR ---
Donna briggs in [facility] - 03/14/22 at 0346 by AYLA REPORT GIVEN TO SHARI MORE
[2022-03-14] MEDS ORDERED: DEXTROSE 50%-WATER 50 ML DISP.SYRIN IV PRN (03:30)
[2022-03-14] MEDS ORDERED: Z GUARD REMEDY 4 OZ OINT TP PRN (03:30)
[2022-03-14] MEDS: LACTULOSE 10 G/15 ML UDC (PYXIS) PO SCH ×4 (03:30→16:44)
--- NOTE | 2022-03-14 03:30 | NUR ---
CEPHALUC TO BE GIVEN Q6HRS. LAST DOSE OF CEPHALUC IS 1AM.
[2022-03-14 04:39] LABS: BAND % (MANUAL) 3 % (0.0-5.0); BASOPHILS % (MANUAL) 0 % (0.0-2.0); EOSINOPHILS % (MANUAL) 3 % (0-4); LYMPHOCYTES % (MANUAL) 24 % (16-48); MONOCYTES % (MANUAL) 12 % (0-11.0); NEUTROPHILS % (MANUAL) 58 (42-76)
[2022-03-14 05:14] LABS: EOSINOPHILS % (AUTO) 4.5 % (0.0-6.0); HEMATOCRIT 34 % (33-45); HEMOGLOBIN 11.3 g/dL (11.5-14.8); LYMPHOCYTES # (AUTO) 1.1 K/uL (0.8-4.8); LYMPHOCYTES % (AUTO) 25.7 % (20.0-44.0); MEAN CORPUSCULAR HGB CONC 33 g/dl (31.0-36.0); MEAN CORPUSCULAR VOLUME 95 fL (82-100); MONOCYTES # (AUTO) 0.5 K/uL (0.1-1.30); MONOCYTES % (AUTO) 12.8 % (2.0-12.0); NEUTROPHILS # (AUTO) 2.4 K/uL (1.8-8.9); PLATELET COUNT (AUTO) 71 K/uL (150-450); RED BLOOD CELL COUNT(AUTO) 3.63 MIL/uL (4.0-5.2); WHITE BLOOD COUNT (AUTO) 4.3 K/uL (4.3-11.0)
[2022-03-14] MEDS ORDERED: ONDANSETRON HCL/PF 4 MG/2 ML VIAL ONE (05:20)
[2022-03-14] MEDS: ONDANSETRON HCL/PF 4 MG/2 ML VIAL IVP PRN ×2 (05:21→12:30)
[2022-03-14 05:36] LABS: ALBUMIN 2.6 g/dL (3.4-5.0); BILIRUBIN,TOTAL 0.9 mg/dL (0.2-1.0); CALCIUM, SERUM 8.8 mg/dL (8.5-10.1); CREATININE 3.9 mg/dL (0.6-1.3); MAGNESIUM 2.6 mg/dL (1.8-2.4); PHOSPHORUS 5.7 mg/dL (2.5-4.9); POTASSIUM 4.3 mmol/L (3.5-5.1); TOTAL PROTEIN, SERUM 7.4 g/dL (6.4-8.2)
[2022-03-14 05:48] LABS: BAND % (MANUAL) 1 % (0.0-5.0); BASOPHILS % (MANUAL) 0 % (0.0-2.0); EOSINOPHILS % (MANUAL) 2 % (0-4); LYMPHOCYTES % (MANUAL) 21 % (16-48); MONOCYTES % (MANUAL) 10 % (0-11.0); NEUTROPHILS % (MANUAL) 66 (42-76)
[2022-03-14] MEDS: BLOOD SUGAR DIAGNOSTIC 1 EACH STRIP VI SCH ×4 (07:30→22:46)
--- NOTE | 2022-03-14 08:21 | NUR ---
REPORT GIVEN TO [facility] AJAY
--- NOTE | 2022-03-14 08:22 | NUR ---
RECEIVED REPORT FROM DOMINIQUE FROM ED REGARDING A NEW ADMISSION AT TELEMETRY FLOOR. ROOM PREPARED FOR THE PATIENT
--- NOTE | 2022-03-14 09:00 | NUR ---
TRANSFERRED TO BED 112 IN STABLE CONDITION
--- NOTE | 2022-03-14 09:15 | NUR ---
AVIONICS TECHNICIAN NOTES: RECEIVED PATIENT FROM ED VIA GURNEY. PATIENT IS ALERT, ORIENTED X 3. PATIENT ON RA WITH OXYGEN SATURATION OF 100%. BREATHING EVEN AND UNLABORED. NO SOB AND NO RESPIRATORY DISTRESS NOTED. PATENT WAS HOOKED UP ON TELE MONITOR, SR WITH HR OF 78. SALINE LOCK ON RIGHT HAND # 2, INTACT, FLUSHES WELL, NO S/S INFILTRATION NOTED. PATIENT ONLY SPEAKS [place] BUT SPOKE WITH SHANNA REAL AND PATIENT WAS INSTRUCTED TO USE THE CALL LIGHT NEEDED. BED LOCKED AND IN LOWEST POSITION. ALL SAFETY MEASURES PROVIDED. WILL CONTINUE TO MONITOR PATIENT FOR SAFETY.
--- NOTE | 2022-03-14 09:15 | NUR ---
BELONGINGS CHECKLIST DONE BY SHANNA ART. ALSO DID BODY ASSESSMENT AND NOTED TO HAVE REDNESS ON PERINEAL AREA, WILL KEEP PATIENT CLEAN AND DRY AT ALL TIMES.
--- NOTE | 2022-03-14 09:20 | NUR ---
V/S DONE FOLLOWS: BP 198/66 PULSE 66, RESP 20, TEMP 98.2, OXYGEN SATURATION 100% ON RA. RECHECKED BP, 202/80 PULSE 64, PATENT DENIES ANY BARRY OR DIZZINESS AT THIS TIME. CALLED AND LEFT A MESSAGE FOR DR. HARKINS @ [phone]
--- NOTE | 2022-03-14 10:12 | NUR ---
DR HARKINS CALLED BACK AND INFORMED OF BP RESULT AND SAID THAT HE WILL ORDER PATIENT'S MEDICATIONS AND ALSO INSTRUCTED TO CONTACT DIALYSIS TEAM. ORDERS NOTED AND WILL CARRY OUT. CALLED [facility] @ [phone], SPOKE WITH DAMIAN
[2022-03-14] MEDS ORDERED: TRAMADOL HCL 50 MG TABLET PO PRN (10:30)
[2022-03-14] MEDS: RIFAXIMIN 550 MG TABLET PO SCH ×2 (10:56→16:44)
[2022-03-14] MEDS: METOPROLOL TARTRATE 25 MG TABLET PO SCH ×2 (10:57→16:46)
[2022-03-14] MEDS: SPIRONOLACTONE 25 MG TABLET PO SCH (10:58)
[2022-03-14] MEDS: LISINOPRIL (10MG) 10 MG TABLET PO SCH ×2 (10:58→16:45)
[2022-03-14 12:00] VITALS: BP 159/74
--- NOTE | 2022-03-14 12:00 | NUR ---
RECEIVED A CLL FROM KIRILL, HD NURSE AND SAID THAT WILL CONTACT DR. TRISTAN AND PATIENT MAY HAVE HEMODIALYSIS TOMORROW.
[2022-03-14] MEDS ORDERED: INSULIN LISPRO 6 UNIT SQ SCH (13:00)
[2022-03-14] MEDS ORDERED: Medication Not On Formulary EA (Lactulose (Duphalac) 20 GM) PO SCH (13:00)
[2022-03-14] MEDS: *INSULIN REGULAR(HUMULIN R)HUM 100 UNIT/ML VIAL SQ PRN ×3 (13:45→22:48)
[2022-03-14] MEDS: INSULIN REGULAR, HUMAN 100 UNIT/ML 3 ML VIAL SQ SCH ×2 (13:45→18:30)
[2022-03-14 16:00] VITALS: BP 145/76
--- NOTE | 2022-03-14 16:44 | NUR ---
METOPROLOL 25 MG NOT GIVEN DUE TO HR OF 58
[2022-03-14] MEDS ORDERED: PROPRANOLOL HCL 20 MG PO SCH (17:00)
[2022-03-14] MEDS: ATORVASTATIN 10 MG TABLET PO SCH (18:30)
--- NOTE | 2022-03-14 19:22 | NUR ---
RN CLOSING NOTES: PATIENT IN BED AWAKE, ALERT AND ORIENTED X 3. PATIENT ONLY SPEAKS FRENCH. PATIENT HAS NO SOB NOTED, NO RESPIRATORY DISTRESS NOTED. ON RA WITH OXYGEN SATURATION OF 97%. PATIENT IS ON SR WITH HR OF 87 ON TELE MONITOR. PERMACATH INTACT ON RIGHT UPPER CHEST, NO BLEEDING NOTED ON THE SITE. NO SOB AND NO RESPIRATORY DISTRESS NOTED. SALINE LOCK INTACT ON RIGHT HAND # 2, FLUSHES WELL, NO S/S INFILTRATION NOTED. BED LOCKED AND IN LOWEST POSITION. CALL LIGHT WITHIN REACH. ALL SAFETY MEASURES PROVIDED. WILL ENDORSE TO INCOMING NURSE FOR CONTINUITY OF CARE.
[2022-03-14 20:00] VITALS: BP_SYST 151; BP_SYST 98; BP_DIAS 55; BP_DIAS 84
--- NOTE | 2022-03-14 20:00 | NUR ---
METAL EXTRUSION SUPERVISOR OPENING NOTE: RECEIVED PT. IN BED, AWAKE, AOX2. DENIES ANY PAIN AT THIS TIME. ON R/A SATING 94% NO SOB NO DISTRESS NOTED NO SOB , NO S/S OF RESPIRATORY DISTRESS. ON TELE MONITOR NSR AT 86 BPM. PT. IV ACCESS ON R HAND #20G SL AND R UPPER CHEST HD ACCESS . DUE MEDS GIVEN ORDERED . SAFETY MEASURES IN PLACE: BED IN LOWEST AND LOCKED POSITION, HOB ELEVATED AT 30 DEGREES, BED ALARM ON, SIDE RAILS UP X3, CALL LIGHT WITHIN EASY REACH.WILL CONTINUE TO MONITOR PT. FOR ANY CHANGES.
[2022-03-14] MEDS: INSULIN GLARGINE, 100 UNIT/ML CARTRIDGE SQ SCH (22:45)
--- NOTE | 2022-03-14 22:51 | NUR ---
EXPLOSIVES HANDLER NOTES BLOOD SUGAR AT 10PM IS 109MG/DL 35 UNITS LANTUS GIVEN ORDER NO COVERAGE FOR SLIDING SCALE
[2022-03-15] VITALS: BP 100/61
[2022-03-15 04:00] VITALS: BP_SYST 148; BP_SYST 150; BP_DIAS 79
[2022-03-15 07:01] LABS: BASOPHILS % (AUTO) 0.8 % (0.0-2.0); EOSINOPHILS % (AUTO) 4.1 % (0.0-6.0); HEMATOCRIT 32 % (33-45); HEMOGLOBIN 10.8 g/dL (11.5-14.8); LYMPHOCYTES # (AUTO) 1.2 K/uL (0.8-4.8); LYMPHOCYTES % (AUTO) 24.6 % (20.0-44.0); MEAN CORPUSCULAR HGB CONC 34 g/dl (31.0-36.0); MEAN CORPUSCULAR VOLUME 94 fL (82-100); MONOCYTES # (AUTO) 0.4 K/uL (0.1-1.30); MONOCYTES % (AUTO) 8.8 % (2.0-12.0); NEUTROPHILS # (AUTO) 3.1 K/uL (1.8-8.9); NEUTROPHILS % (AUTO) 61.7 % (43.0-81.0); PLATELET COUNT (AUTO) 75 K/uL (150-450); RED BLOOD CELL COUNT(AUTO) 3.37 MIL/uL (4.0-5.2)
--- NOTE | 2022-03-15 07:17 | NUR ---
RN CLOSING NOTE: PATIENT REMAINS IN ROOM IN NO SIGNS OF RESPIRATORY DISTRESS, PATIENT STILL ON ROOM AIR;TOLERATING WELL SATURATING @ 94% SP02. SAFETY MEASURES IMPLEMENTED, BED IN LOWEST POSITION, LOCKED, SIDE RAILS UP, CALL LIGHT WITHIN REACH. ALL NEEDS AND ORDERS ADDRESSED DURING THE SHIFT. IV ACCESS MAINTAINED INTACT, SECURED AND FLUSHING WELL. ALL DUE MEDS GIVEN ORDERED & SCHEDULED ; PATIENT TOLERATED WELL. PATIENT KEPT CLEAN AND COMFORTABLE WITHIN THE SHIFT. PATIENT ENDORSED TO INCOMING SHIFT RN WITH STABLE VITAL SIGN AND FOR CONTINUITY OF CARE.
[2022-03-15 07:32] LABS: CALCIUM, SERUM 8.3 mg/dL (8.5-10.1); CREATININE 4.4 mg/dL (0.6-1.3); MAGNESIUM 2.5 mg/dL (1.8-2.4); PHOSPHORUS 5.9 mg/dL (2.5-4.9); POTASSIUM 5.1 mmol/L (3.5-5.1)
[2022-03-15] MEDS: BLOOD SUGAR DIAGNOSTIC 1 EACH STRIP VI SCH ×4 (07:39→21:48)
[2022-03-15 08:00] VITALS: BP 117/57
[2022-03-15] MEDS: SPIRONOLACTONE 25 MG TABLET PO SCH (08:12)
[2022-03-15] MEDS: LISINOPRIL (10MG) 10 MG TABLET PO SCH ×2 (08:12→16:16)
[2022-03-15] MEDS: METOPROLOL TARTRATE 25 MG TABLET PO SCH ×2 (08:12→16:16)
--- NOTE | 2022-03-15 08:12 | NUR ---
RN NOTE ONGOING DIALYSIS, BP STABLE AT THIS TIME. ALL BP MEDS HELD THIS AM.
[2022-03-15] MEDS: VIT B CMPLX 3/FA/VIT C/BIOTIN 1 TAB TABLET PO SCH (08:17)
[2022-03-15] MEDS: LEVOTHYROXINE SODIUM 137 MCG TABLET PO SCH (08:17)
[2022-03-15] MEDS: PANTOPRAZOLE 40 MG TABLET.DR PO SCH (08:17)
[2022-03-15] MEDS: LACTULOSE 10 G/15 ML UDC (PYXIS) PO SCH ×3 (08:17→16:15)
[2022-03-15] MEDS: RIFAXIMIN 550 MG TABLET PO SCH ×2 (08:17→16:16)
[2022-03-15] MEDS: INSULIN REGULAR, HUMAN 100 UNIT/ML 3 ML VIAL SQ SCH ×3 (08:19→17:36)
[2022-03-15] MEDS: INSULIN REGULAR, HUMAN 100 UNIT/ML 3 ML VIAL SQ PRN ×2 (08:20→12:17)
[2022-03-15] MEDS ORDERED: Medication Not On Formulary EA (Folic Acid/Vitamin B Comp W-C (Rena-Vite Tablet) 0.8 MG) PO SCH (09:00)
--- NOTE | 2022-03-15 09:18 | NUR ---
RN NOTE HD COMPLETED. VITAL SIGNS STABLE, BP 119/68, HR 55. PT EATING AT THIS TIME. 2,000ML REMOVED.
[2022-03-15] MEDS: BETHANECHOL CHLORIDE (25 MG) 25 MG TABLET PO SCH ×3 (10:12→16:16)
[2022-03-15 12:00] VITALS: BP 150/72
[2022-03-15 12:46] LABS: EOSINOPHILS % (MANUAL) 4 % (0-4); LYMPHOCYTES % (MANUAL) 20 % (16-48); MONOCYTES % (MANUAL) 5 % (0-11.0); NEUTROPHILS % (MANUAL) 71 (42-76)
[2022-03-15 16:00] VITALS: BP 142/71
[2022-03-15] MEDS: ATORVASTATIN 10 MG TABLET PO SCH (17:42)
--- NOTE | 2022-03-15 19:15 | NUR ---
RN NOTES RECEIVED PT FOR CONTINUITY OF CARE. PATIENT A/OX3-4; [place] SPEAKING ONLY IN NO S/SX OF ACUTE DISTRESS AT THIS TIME; CURRENTLY ON ROOM AIR; WITH 02 SAT 95% AT THIS TIME. WITH IV ACCESS PATENT, INTACT AND FLUSHING WELL.WILL ENSURE SAFETY MEASURES WITHIN THE SHIFT. PATIENT BED ALARM IS ON. HEAD OF BED ELEVATED. BED IS LOCKED, IN LOWEST POSITION AND SIDE RAILS UP. CALL LIGHT WITHIN REACH OF THE PATIENT. WILL CONTINUE TO MONITOR AND REASSESS FOR ANY CHANGES AND WILL CARRY OUT ANY ONGOING AND ACTIVE MD ORDER.
[2022-03-15 20:00] VITALS: BP_SYST 154; BP_SYST 164; BP_DIAS 88
[2022-03-15] MEDS: INSULIN GLARGINE, 100 UNIT/ML CARTRIDGE SQ SCH (21:48)
[2022-03-15] MEDS: *INSULIN REGULAR(HUMULIN R)HUM 100 UNIT/ML VIAL SQ PRN (21:50)
[2022-03-16] VITALS: BP 116/65
[2022-03-16] MEDS: ONDANSETRON HCL/PF 4 MG/2 ML VIAL IVP PRN (03:51)
[2022-03-16 04:00] VITALS: BP 126/81
--- NOTE | 2022-03-16 06:43 | NUR ---
RN CLOSING NOTE: PATIENT REMAINS IN ROOM IN NO SIGNS OF RESPIRATORY DISTRESS, PATIENT STILL ON ROOM AIR ;TOLERATING WELL SATURATING @ >95% SP02. STILL WITH EPISODES OF CONFUSION. SR ON MONITOR. SAFETY MEASURES IMPLEMENTED, BED IN LOWEST POSITION, LOCKED, SIDE RAILS UP, CALL LIGHT WITHIN REACH. ALL NEEDS AND ORDERS ADDRESSED DURING THE SHIFT. IV ACCESS MAINTAINED INTACT, SECURED AND FLUSHING WELL. ALL DUE MEDS GIVEN ORDERED & SCHEDULED ; PATIENT TOLERATED WELL. PATIENT KEPT CLEAN AND COMFORTABLE WITHIN THE SHIFT. PATIENT ENDORSED TO INCOMING SHIFT RN WITH STABLE VITAL SIGN AND FOR CONTINUITY OF CARE.
[2022-03-16] MEDS: BLOOD SUGAR DIAGNOSTIC 1 EACH STRIP VI SCH ×2 (07:33→11:43)
[2022-03-16] MEDS: INSULIN REGULAR, HUMAN 100 UNIT/ML 3 ML VIAL SQ SCH ×2 (07:44→12:06)
[2022-03-16 08:00] VITALS: BP 165/85
[2022-03-16] MEDS: LEVOTHYROXINE SODIUM 137 MCG TABLET PO SCH (08:03)
[2022-03-16] MEDS: VIT B CMPLX 3/FA/VIT C/BIOTIN 1 TAB TABLET PO SCH (08:03)
[2022-03-16] MEDS: METOPROLOL TARTRATE 25 MG TABLET PO SCH (08:03)
[2022-03-16] MEDS: PANTOPRAZOLE 40 MG TABLET.DR PO SCH (08:03)
[2022-03-16] MEDS: RIFAXIMIN 550 MG TABLET PO SCH (08:03)
[2022-03-16] MEDS: BETHANECHOL CHLORIDE (25 MG) 25 MG TABLET PO SCH ×2 (08:03→12:05)
[2022-03-16] MEDS: LACTULOSE 10 G/15 ML UDC (PYXIS) PO SCH ×2 (08:03→12:05)
[2022-03-16] MEDS: LISINOPRIL (10MG) 10 MG TABLET PO SCH (08:03)
[2022-03-16] MEDS: SPIRONOLACTONE 25 MG TABLET PO SCH (08:04)
[2022-03-16 12:00] VITALS: BP 150/71
[2022-03-16] MEDS: INSULIN REGULAR, HUMAN 100 UNIT/ML 3 ML VIAL SQ PRN (12:07)
--- NOTE | 2022-03-16 12:58 | NUR ---
RN NOTE PT DISCHARGED ORDERED. IV REMOVED. PT MEDICALLY STABLE AT TIME OF DISCHARGE. PICKED UP BY HARMONY CANO.
== END 2022-03-16 12:57 | disposition home or self-care (01) | DRG 279 ==
LOC: ER 21:58 → TRANSITION 03-14 03:06 → TELE1 03-14 08:24
PROVIDERS: ADMIT Internal Medicine; ATTEND Internal Medicine
PROC: 5A1D70Z Performance of Urinary Filtration, Intermittent, Less than 6 Hours Per Day (ICD-10-PCS; principal; 2022-03-15)
DX: K72.90 Hepatic failure, unspecified without coma (principal); I12.0 Hypertensive chronic kidney disease with stage 5 chronic kidney disease or end stage renal disease; D63.8 Anemia in other chronic diseases classified elsewhere; E11.22 Type 2 diabetes mellitus with diabetic chronic kidney disease; N18.6 End stage renal disease; Z99.2 Dependence on renal dialysis; Z88.0 Allergy status to penicillin; K74.60 Unspecified cirrhosis of liver; Z79.4 Long term (current) use of insulin; Z79.899 Other long term (current) drug therapy; M89.8X9 Other specified disorders of bone, unspecified site; E03.9 Hypothyroidism, unspecified
CPT/HCPCS: 36415; 70450-TC; 71045-TC; 80048-TC; 80053-TC; 80076-TC; 81001; 82140-TC; 82962-TC; 83735-TC; 84100-TC; 84484-TC; 85025-TC; 85730-TC; 86706; 87081-TC; 87340; 90935-TC; A6253; C9803; G0378; G0480; J1815; J2405; J7030